=== PATIENT | female | born 1945 | race Caucasian/White ===

== ENCOUNTER 2016-10-29 09:07 | Inpatient (IN) | payer OTHER, MEDICARE ==
[~2016-10-29] VITALS: Ht 147.3 cm; Wt 65.8 kg
[~2016-10-29 09:07] MED LIST: ELIQUIS5 MG PO; NORVASC 2.5 MG2.5 MG PO; TOPROL XL 25MG25 MG PO
--- NOTE | 2016-10-29 09:21 | NUR ---
PT PRESENTS TO ER WITH MULTIPLE COMPLAINTS. PT STATES 4 DAYS AGO SHE STARTED TO NOTICE SHE HAD BLACK STOOLS. PT STATES SHE IS CURRENTLY TAKING ELIQUIS SO SHE WAS WORRIED ABOUT THE COLOR. PT DENIES ABDOMINAL PAIN. PT DENIES CHEST PAIN, PT STATES TODAY SHE FELT LIKE HER HEART WAS RACING. PT ALSO STATES SHE VOMITTED THIS AM. PT ALSO ADMITS SHE FEELS VERY ANXIOUS. PT STATES HER BM THIS AM WAS VERY WATERY.
--- NOTE | 2016-10-29 09:26 | ED CARDIAC/CP/PALPITATIONS ---
History of Present Illness General Chief Complaint: Palpitations Stated Complaint: PALPITATIONS Vital Signs & Intake/Output Vital Signs & Intake/Output Vital Signs Date Time Temp Pulse Resp B/P B/P Pulse O2 O2 Flow FiO2 Mean Ox Delivery Rate 10/29 0917 98.3 105 20 127/86 97 Room Air Allergies Coded Allergies: MDX - Amoxicillin (Amoxicillin) (RASH 10/08/10) MDX - Clarithromycin (From BIAXIN) (RASH 08/10/13) MDX - Fentanyl (Fentanyl) (UNKNOWN 08/12/13) MDX - Midazolam (Midazolam) (UNKNOWN 08/12/13) MDX - Ibuprofen (IBUPROFEN) (NAUSEA 08/12/13) Reconcile Medications Apixaban (Eliquis) 5 MG TABLET 1 TAB PO BID BLOOD THINNER Metoprolol Succ XL (Toprol XL 25MG) 50 MG TAB.ER.24H 1 TAB PO DAILY BLOOD PRESSURE Triage Note: PT PRESENTS TO ER WITH MULTIPLE COMPLAINTS. PT STATES 4 DAYS AGO SHE STARTED TO NOTICE SHE HAD BLACK STOOLS. PT STATES SHE IS CURRENTLY TAKING ELIQUIS SO SHE WAS WORRIED ABOUT THE COLOR. PT DENIES ABDOMINAL PAIN. PT DENIES CHEST PAIN, PT STATES TODAY SHE FELT LIKE HER HEART WAS RACING. PT ALSO STATES SHE VOMITTED THIS AM. PT ALSO ADMITS SHE FEELS VERY ANXIOUS. PT STATES HER BM THIS AM WAS VERY WATERY. 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 FHx: myocardial infarction FATHER, ; Cause: Heart attack. FHx: myocardial infarction BROTHER FATHER Progress Plan of Care: Orders Procedure Date/time Status EKG 10/29 0910 Active Departure Departure Condition: Stable Referrals: FINA PEREZ DO (PCP/Family) Departure Forms: Customer Survey General Discharge Information
--- NOTE | 2016-10-29 09:38 | ED GI/GU/ABDOMINAL COMPLAINT ---
History of Present Illness General Chief Complaint: Palpitations Stated Complaint: PALPITATIONS Source: patient, family, old records Exam Limitations: no limitations Vital Signs & Intake/Output Vital Signs & Intake/Output Vital Signs Date Time Temp Pulse Resp B/P B/P Pulse O2 O2 Flow FiO2 Mean Ox Delivery Rate 10/29 1916 124/70 10/29 1501 98.1 10/29 1500 98.1 74 18 124/80 96 Room Air 10/29 1326 98.3 10/29 1131 98.3 79 20 132/72 95 Room Air 10/29 0917 98.3 105 20 127/86 97 Room Air Allergies Coded Allergies: amoxicillin (RASH 10/29/16) clarithromycin (From BIAXIN) (RASH 10/29/16) fentanyl (UNKNOWN 10/29/16) midazolam (UNKNOWN 10/29/16) ibuprofen (NAUSEA 10/29/16) Reconcile Medications Apixaban (Eliquis) 5 MG TABLET 1 TAB PO BID BLOOD THINNER (Reported) Calcium Carbonate (TUMS) 200 MG CALCIUM (500 MG) TAB.CHEW 2 TAB PO Q4P HEARTBURN (Reported) [CITRACEL] 1 TAB PO DAILY SUPPLEMENT (Reported) Fluticasone Propionate 50 MCG/ACTUATION SPRAY.SUSP 1 SPRAY NASB DAILY CONGESTION (Reported) Lorazepam 0.5 MG TABLET 0.5 TAB PO QHS SLEEP (Reported) Metoprolol Succinate 25 MG TAB 1 TAB PO DAILY HTN (Reported) Triage Note: PT PRESENTS TO ER WITH MULTIPLE COMPLAINTS. PT STATES 4 DAYS AGO SHE STARTED TO NOTICE SHE HAD BLACK STOOLS. PT STATES SHE IS CURRENTLY TAKING ELIQUIS SO SHE WAS WORRIED ABOUT THE COLOR. PT DENIES ABDOMINAL PAIN. PT DENIES CHEST PAIN, PT STATES TODAY SHE FELT LIKE HER HEART WAS RACING. PT ALSO STATES SHE VOMITTED THIS AM. PT ALSO ADMITS SHE FEELS VERY ANXIOUS. PT STATES HER BM THIS AM WAS VERY WATERY. Triage Nurses Notes Reviewed? yes ? N Is pt currently ? No Onset: Abrupt Duration: hour(s): (1) Timing: single episode today Quality/Severity: severe Associated Symptoms: DARK BROWN/BLACK STOOLS HPI: This is a 71-year-old female with history of A. fib on ELOQUIS who presents to the ER from home for chief complaint of feeling near syncopal in the shower. She reports dark stools for the past 4 days and black stools today. She states while she was in the shower she bent over and felt horrible. No chest pain or shortness of breath but felt she was going to pass out. She was sweaty. She was able to get out of the shower and dry herself off and after that felt much better. Patient states that then after getting out of the shower she felt that her heartbeat was fast and irregular. She did not take her morning medications yet. She denies any abdominal pain or rectal pain. She denies any abdominal cramping. She denies any chest pain or shortness of breath. She has no history of bleeding from Eliquis in the past. Patient does feel weak overall. Past History Travel History Traveled to [place] past 21 day No Medical History Any Pertinent Medical History? 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 FHx: myocardial infarction FATHER, ; Cause: Heart attack. FHx: myocardial infarction BROTHER FATHER Hx Contributory? No Review of Systems Review of Systems Constitutional: Denies: chills, fever. EENTM: Reports: no symptoms. Respiratory: Denies: cough, short of breath, sputum production. Cardiovascular: Reports: palpitations, syncope (NEAR). Denies: chest pain, peripheral edema. GI: Reports: nausea, bloody stool, changes in stool. Denies: abdominal pain, vomiting. Genitourinary: Reports: no symptoms. Musculoskeletal: Denies: back pain. Skin: Reports: no symptoms. Neurological/Psychological: Reports: no symptoms. Hematologic/Endocrine: Reports: bleeding. Denies: bruising, polyuria, polydipsia. Immunologic/Allergic: Denies: splenectomy. All Other Systems: Reviewed and Negative Physical Exam Physical Exam General Appearance: well developed/nourished, alert, awake, anxious, mild distress Head: atraumatic, normal appearance Eyes: Bilateral: normal appearance, PERRL, EOMI. Ears, Nose, Throat, Mouth: hearing grossly normal, moist mucous membrane Neck: normal inspection, supple, full range of motion Respiratory: normal breath sounds, chest non-tender, no respiratory distress Cardiovascular: tachycardia Peripheral Pulses: 2+ radial (R), 2+ radial (L) Gastrointestinal: normal bowel sounds, soft, non-tender Rectal: NO STOOL IN VAULT, GUAIAC POSITIVE Back: normal inspection, normal range of motion Extremities: normal range of motion Neurologic/Psych: no motor/sensory deficits, awake, alert, oriented x 3 Core Measures ACS in differential dx? No Severe Sepsis Present: No Septic Shock Present: No Progress Differential Diagnosis: peptic ulcer, PUD/GERD, gi BLEED FROM eLIQUIS, ORTHOSTATIC HYPOTENSION Plan of Care: Orders Procedure Date/time Status Nothing by Mouth 10/30 B Active CBC WITHOUT DIFFERENTIAL 10/30 0600 Active BASIC ELECTROLYTES PLUS BUN&CR 10/30 0600 Active LACTIC ACID 10/29 UNK Complete Clear Liquid Diet 10/29 D Complete Hemoccult 10/29 2026 Active CBC WITHOUT DIFFERENTIAL 10/29 1800 Complete Vital Signs 10/29 1451 Active Teach/Educate 10/29 1451 Active Pain Treatment and Response 10/29 1451 Active Nutritional Intake, Monitor 10/29 1451 Active Isolation 10/29 1451 Active Intake & Output 10/29 1451 Active Patient Care Conference 10/29 1451 Active Activity/Ambulation 10/29 1451 Active Pathway - chart 10/29 1435 Active FingerStick- Glucose 10/29 1322 Active Admit to inpatient 10/29 1306 Active Patient Data 10/29 1304 Active LACTIC ACID 10/29 1237 Complete ED Holding Orders 10/29 1230 Active Vital Signs 10/29 1230 Active Code Status 10/29 1230 Active Intake & Output 10/29 1135 Active MISTAKE 10/29 0937 Active TROPONIN LEVEL 10/29 0937 Complete PARTIAL THROMBOPLASTIN TIME 10/29 0937 Complete PROTHROMBIN TIME 10/29 0937 Complete COMPREHENSIVE METABOLIC PANEL 10/29 0937 Complete CBC WITHOUT DIFFERENTIAL 10/29 0937 Complete TYPE & SCREEN (NOT X-MATCH) 10/29 0937 Complete EKG 10/29 0910 Active VTE Mechanical Prophylaxis 10/29 UNK Active Current Medications Sig/Trevor Start time Last Medication Dose Stop Time Status Admin Pantoprazole Sodium 40 MG BID 10/29 2200 AC 10/29 (Protonix) 221 Lorazepam 0.5 MG AT BEDTIME PRN 10/29 1730 AC 10/29 (Ativan) 11/05 172 2213 Metoprolol Succinate 25 MG DAILY 10/29 1715 AC 10/29 (Toprol XL) 1916 Acetaminophen 650 MG Q6P PRN 10/29 1445 AC (Tylenol) Lidocaine 1 PAT Q24H PRN 10/29 1445 AC (Lidoderm) Morphine Sulfate 2 MG Q4P PRN 10/29 1445 AC (Morphine) Dextrose/Sodium 1,000 ML .[id number] 10/29 1430 AC 10/29 Chloride 1506 (D5-Normal Saline) Fluticasone 2 SPRAY DAILY PRN 10/29 1430 AC 10/29 Propionate 2213 (Flonase) Potassium Chloride 40 MEQ .Q10H 10/29 1430 CAN (KCL 40MEQ in D5W 1000ml) Dextrose/Water 1,000 ML (D5W 1000) Laboratory Tests 10/29/16 1905: Lactic Acid 1.2, CBC w Diff NO MAN DIFF REQ, RBC 2.91 L, MCV 85.8, MCH 28.3, RDW 14.3, MPV 11.8 H, Gran % 59.9, Lymphocytes % 32.6, Monocytes % 6.2, Eosinophils % 0.9, Basophils % 0.4, Absolute Granulocytes 6.8 H, Absolute Lymphocytes 3.7 H, Absolute Monocytes 0.7 H, Absolute Eosinophils 0.1, Absolute Basophils 0, PUBS MCHC 33.0 10/29/16 1021: Lactic Acid 1.8 10/29/16 0956: Anion Gap 7, Estimated GFR > 60, BUN/Creatinine Ratio 33.3 H, Glucose 92, Calcium 9.0, Total Bilirubin 0.4, AST 30, ALT 37, Alkaline Phosphatase 50, Troponin I 0.04, Total Protein 5.4 L, Albumin 3.1 L, Globulin 2.3, Albumin/ Globulin Ratio 1.3, PT 12.0, INR 1.14, APTT 22 L, CBC w Diff MAN DIFF ORDERED, RBC 2.82 L, MCV 86.0, MCH 29.1, RDW 14.4, MPV 11.7 H, Gran % 69.8, Lymphocytes % 22.2, Monocytes % 6.2, Eosinophils % 1.3, Basophils % 0.5, Absolute Granulocytes 7.3 H, Absolute Lymphocytes 2.3, Absolute Monocytes 0.7 H, Absolute Eosinophils 0.1, Absolute Basophils 0.1, Platelet Estimate DECREASED, Polychromasia 1+, Hypochromic-Microcytic 1+, Anisocytosis 1+, PUBS MCHC 33.8 LABS, IV FLUIDS, ORTHOSTATICS, EKG IV PROTONIX ORDERED. 12:[address] GARCIA REPAGED DISCUSSED WITH DR GARCIA. ADMITTED TO UNDER HOSPITALIST SERVICE. DR DURAN INFORMED. NO FURTHER EPISODES OF BLEEDING IN ED. PATIENT AMBULATORY WITHOUT DISTRESS. STABLE FOR GEN MED AT THIS TIME. WILL KEEP NPO. (SHANAE CASTANON,KATHERINE) Initial ED EKG: NSR Rhythm Strip: normal sinus rhythm Departure Departure Time of Disposition: 1228 Disposition: STILL A PATIENT Condition: Stable Clinical Impression Primary Impression: GI bleed Secondary Impressions: Anemia Referrals: FINA PEREZ DO (PCP/Family) Departure Forms: Customer Survey General Discharge Information Admission Note Spoke With: JH CASTANON,REESE Documentation of Exam: Documentation of any treatments & extenuating circumstances including Concerns Regarding Discharge (functional status, medication knowledge or non-compliance, living conditions, etc.) that warrant an admission rather than observation: [IV PROTONIX, MONITOR H/H, D/W DR DURAN TO CONSULT REGARDING DR TIM AVILA FOR ENDOSCOPY]
--- NOTE | 2016-10-29 09:57 | NUR ---
ABLE TO DRAW SOME LABS, NOT ALL, PT TOUGH STICK. SENT SST, LAV, BLUE TO LAB.
[2016-10-29 10:15] LABS: ABSOLUTE BASOPHIL COUNT 0.1 /CUMM (0.0-0.2); ABSOLUTE EOSINOPHIL COUNT 0.1 /CUMM (0.0-0.7); ABSOLUTE GRANULOCYTE CT 7.3 /CUMM (1.4-6.5); ABSOLUTE LYMPH COUNT 2.3 /CUMM (1.2-3.4); ABSOLUTE MONOCYTE COUNT 0.7 /CUMM (0.10-0.60); BASOPHIL % 0.5 % (0.0-2.0); EOSINOPHIL % 1.3 % (0-5); GRANULOCYTE % 69.8 % (42.2-75.2); HEMATOCRIT 24.3 % (37-47); MEAN CORPUSCULAR HGB 29.1 PG (27.0-31.0); MEAN CORPUSCULAR HGB CONC 33.8 G/DL (33.0-37.0); MEAN PLATELET VOLUME 11.7 FL (7.4-10.4); PLATELET COUNT 139 /CUMM (130-400); RBC DISTRIBUTION WIDTH 14.4 % (11.5-14.5); RED BLOOD CELL CT 2.82 /CUMM (4.20-5.40); WHITE BLOOD CELL COUNT 10.5 /CUMM (4.8-10.8)
--- NOTE | 2016-10-29 10:23 | NUR ---
REDRAW OF LACTIC AND TYPE AND SCREEN. REDREW ALL LABS IN CASE OF HEMOLYZATION AND INFORMED LAB WELL.
[2016-10-29 10:30] LABS: PTT 22 SEC (25-37)
--- NOTE | 2016-10-29 11:01 | NUR ---
LAB AT BEDSIDE FOR ABO.
--- NOTE | 2016-10-29 11:26 | NUR ---
NS INFUSING, MEDICATED WITH PROTONIX (SEE MAR)
--- NOTE | 2016-10-29 13:02 | NUR ---
PROTONIX INFUSING GOING ORDERED (SEE MAR)
--- NOTE | 2016-10-29 13:26 | NUR ---
TYLENOL IV ORDERED (SEE MAR)
[2016-10-29] MEDS ORDERED: ELIQUIS5 M1 PO (13:29)
[2016-10-29] MEDS ORDERED: METOPROLOL SUCC25 M1 PO (13:29)
[2016-10-29] MEDS ORDERED: FLUTICASONE PRO16 GM NASB (13:30)
[2016-10-29] MEDS ORDERED: LORAZEPAM0.5 M1 PO (13:30)
[2016-10-29] MEDS ORDERED: CITRACEL PO (13:31)
[2016-10-29] MEDS ORDERED: TUMS200 MG PO (13:31)
--- NOTE | 2016-10-29 13:33 | NUR ---
PT ADMITTED TO ROOM [id number]
--- NOTE | 2016-10-29 13:36 | History & Physical ---
[facility] 10/29/16 1331: General Information and HPI MD Statement: I have seen and personally examined NAREN BROWN and documented this H&P. The patient is a 71 year old F who presented with a patient stated chief complaint of palpitations. Source of Information: patient, family, old records Exam Limitations: no limitations History of Present Illness: Ms Brown is a 71 year old female with a past medical history of hypertension, anxiety, arthritis, chronic cystitis who presented to the ER with the chief complaint weakness and progressive malaise. The patient reports that over the last 5 days she has continued to experience multiple episodes of dark stools. The stools have progressively increased shade and have become progressively darker. Stools have been described as pasty. This morning as the patient was taken a shower she had what she describes as a "horrible feeling". This brief episode was transient and and she did not loose consciousness. She also states that she felt nauseaus. She had one episode of nonbloody emesis. Emesis did contain green bile. Patient also reports over the last week she has had decreased appetite. She has never had similar reports to the above. She does state that she is due to get a colonoscopy. Patient reports continued seasonal allergies. She recently reports that over the weekend and she was gardening and may have had developed some back pain. She took some Tylenol for this. During the time of our clinical encounter the patient also endorsed a mild headache. Headache was in the frontal area. Described as pressure-like. Rated as out 2 out of 10 in severity. Patient's primary care physician is Dr. Shaw. Patient also sees obstetric/clinical study manager Dr. Shawn Echevarria. Allergies/Medications Allergies: Coded Allergies: amoxicillin (RASH 10/29/16) clarithromycin (From BIAXIN) (RASH 10/29/16) fentanyl (UNKNOWN 10/29/16) midazolam (UNKNOWN 10/29/16) ibuprofen (NAUSEA 10/29/16) Home Med list Apixaban (Eliquis) 5 MG TABLET 1 TAB PO BID BLOOD THINNER (Reported) Calcium Carbonate (TUMS) 200 MG CALCIUM (500 MG) TAB.CHEW 2 TAB PO Q4P HEARTBURN (Reported) [CITRACEL] 1 TAB PO DAILY SUPPLEMENT (Reported) Fluticasone Propionate 50 MCG/ACTUATION SPRAY.SUSP 1 SPRAY NASB DAILY CONGESTION (Reported) Lorazepam 0.5 MG TABLET 0.5 TAB PO QHS SLEEP (Reported) Metoprolol Succinate 25 MG TAB 1 TAB PO DAILY HTN (Reported) Compliance With Home Meds: GOOD Past History Travel History Traveled to [place] past 21 day No Medical History Neurological: vertigo, anxiety EENT: allergies Cardiovascular: hypertension Respiratory: NONE Gastrointestinal: NONE Hepatic: NONE Renal: nephrolithiasis, bladder infection Musculoskeletal: chronic knee pain Psychiatric: anxiety Endocrine: NONE Blood Disorders: NONE Cancer(s): 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 FHx: myocardial infarction FATHER, ; Cause: Heart attack. FHx: myocardial infarction BROTHER FATHER Psychosocial History Where do you live? Home Who Do You Live With? child Services at Home: None Primary Language: South Korean Smoking Status: Never Smoked ETOH Use: denies use Illicit Drug Use: denies illicit drug use Living Will? unknown Power of Accounts Receivable Supervisor/HCP? yes Name of POA/HCP: son Functional Ability ADLs Independent: dressing, eating, toileting, bathing. Ambulation: independent, cane IADLs Independent: shopping, housework, finances, food prep, telephone, transportation , medication admin. Review of Systems Review of Systems Constitutional: Reports: see HPI. Denies: fever, malaise, weakness, unexplained weight loss. EENTM: Reports: throat pain. Denies: blurred vision, double vision, visual changes. Cardiovascular: Denies: chest pain, edema, orthopena, palpitations. Respiratory: Denies: cough, hemoptysis, orthopnea, short of breath, sputum production. GI: Denies: abdominal pain, bloating, constipation, diarrhea. Genitourinary: Reports: hematuria. Denies: frequency, hesitation, nocturia. Musculoskeletal: Reports: back pain. Denies: gout, joint pain, joint swelling, muscle pain. Skin: Denies: change in skin color, change in hair/nails, dryness, erythema. Neurological/Psychological: Denies: ataxia, cognitive dysfunction, confusion, depressed, dementia. Hematologic/Endocrine: Denies: bruising, bleeding, polyuria, polydipsia. Exam & Diagnostic Data Last 24 Hrs of Vital Signs/I&O Vital Signs Date Time Temp Pulse Resp B/P B/P Pulse O2 O2 Flow FiO2 Mean Ox Delivery Rate 10/29 1326 98.3 10/29 1131 98.3 79 20 132/72 95 Room Air 10/29 0917 98.3 105 20 127/86 97 Room Air Intake & Output 10/29 1600 10/29 0800 10/29 0000 Intake Total 500 Output Total Balance 500 Intake, IV 500 Patient 68.039 kg Weight Physical Exam General Appearance Alert, Oriented X3, Cooperative, No Acute Distress Sepsis Skin Exam (color): Normal for Ethnicity HEENT Mucous Membr. moist/pink Neck Supple Lymphatic Cervical nl Cardiovascular Normal S1, Normal S2, No Murmurs Lungs Clear to Auscultation Abdomen Normal Bowel Sounds, Soft, No Tenderness Neurological Normal Gait, Normal Speech, Strength at 5/5 X4 Ext Extremities No Clubbing, No Cyanosis, No Edema, Normal Pulses Vascular Normal Pulses Last 24 Hrs of Labs/Mauricio: Laboratory Tests 10/29/16 1021: Lactic Acid 1.8 10/29/16 0956: Anion Gap 7, Estimated GFR > 60, BUN/Creatinine Ratio 33.3 H, Glucose 92, Calcium 9.0, Total Bilirubin 0.4, AST 30, ALT 37, Alkaline Phosphatase 50, Troponin I 0.04, Total Protein 5.4 L, Albumin 3.1 L, Globulin 2.3, Albumin/ Globulin Ratio 1.3, PT 12.0, INR 1.14, APTT 22 L, CBC w Diff MAN DIFF ORDERED, RBC 2.82 L, MCV 86.0, MCH 29.1, RDW 14.4, MPV 11.7 H, Gran % 69.8, Lymphocytes % 22.2, Monocytes % 6.2, Eosinophils % 1.3, Basophils % 0.5, Absolute Granulocytes 7.3 H, Absolute Lymphocytes 2.3, Absolute Monocytes 0.7 H, Absolute Eosinophils 0.1, Absolute Basophils 0.1, Platelet Estimate DECREASED, Polychromasia 1+, Hypochromic-Microcytic 1+, Anisocytosis 1+, PUBS MCHC 33.8 Assessment/Plan Assessment: This is a 71-year-old female with past medical history of hypertension, anxiety, arthritis, chronic cystitis who presented to the emergency department on the afternoon of 10/29/2016 after experiencing a transient presyncopal episode. This is likely due to acute blood loss anemia which has occurred due to blood loss through the GI tract. #Acute blood loss anemia due to upper GI bleed Keep nothing by mouth for now. Maintain 2 large IV bore. Type and screen. Gentle hydration at 75 mL per hour. Repeat CBC this evening at 6 PM and ensure patient is not hemodynamically unstable.Keep H/H above 7 and 21. IV Protonix 40 mg BID. Avoid NSAIDs. Repeat CBC in a.m. GI consultation has been obtained. If the patient deteriorates or becomes hemodynamically unstable inform GI immediately. #Paroxysmal atrial fibrillation. At the time of admission the patient was in normal sinus rhythm. Hold Eliquis for now. #History of headache. Pain relief with Tylenol as needed. #History of hypertension. Hold antihypertensives (metoprolol) for now. Code Full code DVT prophylaxis ALP S As Ranked By This Provider Problem List: 1. GI bleed 2. HTN (hypertension) 3. Afib Core Measures/Miscellaneous Acute Coronary Syndrome ACS Diagnosis: No Cerebrovascular Accident CVA/TIA Diagnosis: No Congestive Heart Failure CHF Diagnosis: No VTE (View Protocol) VTE Risk Factors: Age > 40 [facility] prophylaxis d/t: VTE low risk No VTE Pharm Prophylaxis d/t: Active bleeding VTE Diagnosis: No VTE Type: NONE VTE Confirmed by (Test): NONE Sepsis (View Protocol) Severe Sepsis Present: No Septic Shock Septic Shock Present: No Miscellaneous Documentation Attending Case Discussed With: REESE PEÑALOZA MD Primary Care Physician: FINA SHAW DO Patient sees these Specialists NA Level of Patient Care: General Medicine [facility] 1436: Resident Review Statement Resident Statement: examined this patient, discussed with consultant intern, agreed with consultant intern, discussed with family Other Findings: The patient is a 71-year-old woman with a past history of paroxysmal A. fib on Eliquis, hypertension, osteoarthritis and interstitial cystitis. She presents to the ER from home with complaints of dark stools and tiredness for the past 5 days and a near syncopal attack in the shower this morning. She denied abdominal pain or bleeding AR. However she did have non bloody green colored vomittus X 1 episode this morning shortly after the syncopal attack. She denies palpitations , chest pain or shortness of breath. She also denied prior vaginal bleeding or hematuria. Vitals at presentation 98.3F, P 105bpm, RR 20/min, BP127/86 mg PO2 97% on Room Air Physical exam General Appearance: Alert, Oriented X3, Cooperative, Slightly anxious, No Acute Distress Skin: No Rashes, No Breakdown, No Significant Lesion HEENT: Atraumatic, PERRLA, EOMI, mucous membranes stained with Hanna. Neck: Supple, No JVD Lymphatic: Cervical nl Cardiovascular: Regular Rate, Normal S1, Normal S2, No Murmurs Lungs: Clear to Auscultation, Normal Air Movement Abdomen: Full, Soft, No Tenderness, No Hepatospenomegaly, Normal bowel sounds Neurological: Normal Speech, Strength at 5/5 X4 Ext, Normal Tone, Sensation Intact, Cranial Nerves 3-12 NL Extremities: No Clubbing, No Cyanosis, No Edema, Normal Pulses Vascular: Normal Pulses Labs CBC with WBC 10.5, hemoglobin 8.2 (Was 13.4 6 months prior) , hematocrit 24.3%, platelet count of 139. Sodium was 138, potassium was 4.1, chloride of 108, BUN of 20 and creatinine of 0.6. Troponin was negative at 0.04 and INR was 1.14. EKG: NSR, rate (99bpm), no ST T wave changes. QTC 411 ,s Assessment 1. Symptomatic anemia secondary to upper gastrointestinal bleeding 2. Mild hyperkalemia 3. Paroxsymal atrial fibrillation on eliquis 4. Hypertension Plan -Admit to General medicine floor -Nothing by mouth for possible upper GI endoscopy -Monitor vital signs and blood pressure closely -Patient had orthostatic tachycardia though no blood pressure changes -Hold PO metoprolol for now and restart in am. -Gastroenterology consult -Type and screen -Check CBC again at 6 pm and monitor CBC closely -Change IV Protonix drip to Protonix 40 mg Q 12 hours -IV D5/normal saline at 75 mL an hour -DVT prophylaxis with Alps -Patient is full code REESE PEÑALOZA MD 10/29/16 2106: Attending MD Review Statement Attending Statement Attending MD Statement: examined this patient, discuss w/resident/PA/SERVICES MGR, agreed w/resident/PA/SERVICES MGR, reviewed EMR data (avail) Attending Assessment/Plan: 71F PMH HTN, paroxysmal atrial fibrillation on Eliquis (currently in NSR), presenting with weakness, fatigue, and headache for 1-2 weeks found to have drop in Hgb to 8.2 from baseline 13 6 months ago. No NSAID use, uses Tylenol for pain. Hemodynamically stable. Appears weak but not pale, exam benign. Rectal exam by residents revealed empty rectal vault with no visible stool. Patient reports having dark stools for several days. 1. Acute GI bleed 2. Symptomatic anemia 3. Melena 4. Paroxysmal atrial fibrillation Plan - Admit to general medicine - Hold Eliquis for now - NPO - Protonix 40mg IV BID - GI consult - IV hydration - CBC q6h - Transfuse Hgb<7 - Holding Metoprolol for now - ALPS for DVT PPx - NPO - Protonix 40mg IV BID - GI consult - IV hydration - CBC q6h - Transfuse Hgb<7 - Holding Metoprolol for now - ALPS for DVT PPx
--- NOTE | 2016-10-29 13:51 | NUR ---
REPORT CALLED TO STEPHAN MONGE.
--- NOTE | 2016-10-29 14:42 | Cons- Cardiology ---
[facility] 10/29[facility] 1441: General Information and HPI Consulting Request Date of Consult: 10/29/16 Requested By: REESE PEÑALOZA MD Reason for Consult: Palpitation\Black stool Hx. of A. Fib on Eliquis Source of Information: patient, family, old records Exam Limitations: no limitations History of Present Illness: Mrs. Mejía is a 71 year old woman with a past medical history of hypertension, A.fib on Eliquis, Hiatal hernia, osteoarthritis and interstitial cystitis presented to ED with a c/o of Black stool over the last 4 days and palpitation. Patient was on her usual health until 4 days ago when she started to notice dark colored stool, today she noticed that her stool is black in color with no bright blood or clots. Today at am while she is taking a shower she leaned forward to clean herself, she felt every thing is off balance, she denies dizziness or LOC, after she finished her shower she felt nauseous and she vomits once of clear fluid which becomes bilous later, she denies bright red blood per rectum, she also report feeling tired more easily compared to her baseline, especially when she climb the stairs or when she walk for long distance, she feels SOB on exertion, she denies any SOB at rest. Patient also report heart racing today, she was worried that she back to a. fib. Patient's denies chest pain, headache, vision changes and there is no changes in urinary habits. Allergies/Medications Allergies: Coded Allergies: amoxicillin (RASH 10/29/16) clarithromycin (From BIAXIN) (RASH 10/29/16) fentanyl (UNKNOWN 10/29/16) midazolam (UNKNOWN 10/29/16) ibuprofen (NAUSEA 10/29/16) Home Med List: Apixaban (Eliquis) 5 MG TABLET 1 TAB PO BID BLOOD THINNER (Reported) Calcium Carbonate (TUMS) 200 MG CALCIUM (500 MG) TAB.CHEW 2 TAB PO Q4P HEARTBURN (Reported) [CITRACEL] 1 TAB PO DAILY SUPPLEMENT (Reported) Fluticasone Propionate 50 MCG/ACTUATION SPRAY.SUSP 1 SPRAY NASB DAILY CONGESTION (Reported) Lorazepam 0.5 MG TABLET 0.5 TAB PO QHS SLEEP (Reported) Metoprolol Succinate 25 MG TAB 1 TAB PO DAILY HTN (Reported) Current Medications: Current Medications Sig/Trevor Start time Last Medication Dose Route Stop Time Status Admin Acetaminophen 650 MG Q6P PRN 10/29 1445 AC PO Acetaminophen 1,000 MG ONCE ONE 10/29 1330 DC 10/29 N/A 1 UNIT IV 10/29 1344 1326 Acetaminophen 0 .STK-MED ONE 10/29 1329 DC IV Dextrose/Sodium 1,000 ML .[id number] 10/29 1430 AC 10/29 Chloride IV 1506 Fluticasone 2 SPRAY DAILY PRN 10/29 1430 AC Propionate JOSE MANUEL Lidocaine 1 PAT Q24H PRN 10/29 1445 AC EXT Morphine Sulfate 2 MG Q4P PRN 10/29 1445 AC IV Pantoprazole Sodium 0 .STK-MED ONE 10/29 1259 DC IV Pantoprazole Sodium 40 MG Q5H 10/29 1200 AC 10/29 Sodium Chloride 100 ML IV 1255 Pantoprazole Sodium 40 MG ONCE ONE 10/29 1130 DC 10/29 IV 10/29 1131 1126 Pantoprazole Sodium 0 .STK-MED ONE 10/29 1127 DC IV Potassium Chloride 40 MEQ .Q10H 10/29 1430 CAN Dextrose/Water 1,000 ML IV Sodium Chloride 500 ML BOLUS ONE 10/29 1045 DC 10/29 IV 10/29 1144 1126 Review of Systems Review of Systems Constitutional: Reports: no symptoms. EENTM: Reports: no symptoms. Cardiovascular: Reports: palpitations. Respiratory: Reports: short of breath (On exertion). GI: Reports: melena, nausea, vomiting. Denies: abdominal pain, constipation, diarrhea. Genitourinary: Reports: no symptoms. Musculoskeletal: Reports: no symptoms. Skin: Reports: no symptoms. Neurological/Psychological: Reports: no symptoms. Hematologic/Endocrine: Reports: no symptoms. 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 FHx: myocardial infarction FATHER, ; Cause: Heart attack. FHx: myocardial infarction BROTHER FATHER Psychosocial History Who Do You Live With? child Services at Home: None Primary Language: Spanish Living Will? unknown Power of Frozen Food Department Manager/HCP? yes Name of POA/HCP: son Functional Ability ADLs Independent: dressing, eating, toileting, bathing. Ambulation: independent, cane IADLs Independent: shopping, housework, finances, food prep, telephone, transportation , medication admin. Exam & Diagnostic Data Vital Signs and I&O Vital Signs Date Time Temp Pulse Resp B/P B/P Pulse O2 O2 Flow FiO2 Mean Ox Delivery Rate 10/29 1501 98.1 10/29 1500 98.1 74 18 124/80 96 Room Air 10/29 1326 98.3 10/29 1131 98.3 79 20 132/72 95 Room Air 10/29 0917 98.3 105 20 127/86 97 Room Air Intake & Output 10/29 1600 10/29 0800 10/29 0000 10/28 1600 10/28 0800 10/28 0000 Intake Total 500 Output Total Balance 500 Intake, IV 500 Patient 145 lb Weight Physical Exam General Appearance: well developed/nourished, no apparent distress, alert, awake , comfortable Head: atraumatic, normal appearance Eyes: Bilateral: normal appearance, PERRL, EOMI. Neck: normal inspection, supple Respiratory: normal breath sounds, chest non-tender, no respiratory distress Cardiovascular: regular rate/rhythm, normal peripheral pulses Peripheral Pulses: 3+ dorsalis pedis (R), 3+ dorsalis pedis (L) Gastrointestinal: normal bowel sounds, soft, non-tender Extremities: normal inspection, no edema Neurologic/Psych: no motor/sensory deficits, awake, alert, oriented x 3 Labs/Mauricio Results: Laboratory Tests 10/29 10/29 1021 0956 Chemistry Sodium (137 - 145 mmol/L) 138 Potassium (3.5 - 5.1 mmol/L) 4.1 Chloride (98 - 107 mmol/L) 108 H Carbon Dioxide (22 - 30 mmol/L) 23 Anion Gap (5 - 16) 7 BUN (7 - 17 mg/dL) 20 H Creatinine (0.5 - 1.0 mg/dL) 0.6 Estimated GFR (>60 ml/min) > 60 BUN/Creatinine Ratio (7 - 25 %) 33.3 H Glucose (65 - 99 mg/dL) 92 Lactic Acid (0.7 - 2.1 mmol/L) 1.8 Calcium (8.4 - 10.2 mg/dL) 9.0 Total Bilirubin (0.2 - 1.3 mg/dL) 0.4 AST (14 - 36 U/L) 30 ALT (9 - 52 U/L) 37 Alkaline Phosphatase (<127 U/L) 50 Troponin I (< 0.11 ng/ml) 0.04 Total Protein (6.3 - 8.2 g/dL) 5.4 L Albumin (3.5 - 5.0 g/dL) 3.1 L Globulin (1.9 - 4.2 gm/dL) 2.3 Albumin/Globulin Ratio (1.1 - 2.2 %) 1.3 Coagulation PT (9.4 - 12.5 SEC) 12.0 INR (0.90 - 1.19) 1.14 APTT (25 - 37 SEC) 22 L Hematology CBC w Diff MAN DIFF ORDERED WBC (4.8 - 10.8 /CUMM) 10.5 RBC (4.20 - 5.40 /CUMM) 2.82 L Hgb (12.0 - 16.0 G/DL) 8.2 L Hct (37 - 47 %) 24.3 L MCV (81.0 - 99.0 FL) 86.0 MCH (27.0 - 31.0 PG) 29.1 RDW (11.5 - 14.5 %) 14.4 Plt Count (130 - 400 /CUMM) 139 MPV (7.4 - 10.4 FL) 11.7 H Gran % (42.2 - 75.2 %) 69.8 Lymphocytes % (20.5 - 51.1 %) 22.2 Monocytes % (1.7 - 9.3 %) 6.2 Eosinophils % (0 - 5 %) 1.3 Basophils % (0.0 - 2.0 %) 0.5 Absolute Granulocytes (1.4 - 6.5 /CUMM) 7.3 H Absolute Lymphocytes (1.2 - 3.4 /CUMM) 2.3 Absolute Monocytes (0.10 - 0.60 /CUMM) 0.7 H Absolute Eosinophils (0.0 - 0.7 /CUMM) 0.1 Absolute Basophils (0.0 - 0.2 /CUMM) 0.1 Platelet Estimate (ADEQUATE) DECREASED Polychromasia 1+ Hypochromic-Microcytic 1+ Anisocytosis 1+ PUBS MCHC (33.0 - 37.0 G/DL) 33.8 Assessment/Plan Assessment/Plan Mrs. Mejía is a 71 year old woman with a past medical history of hypertension, A.fib on Eliquis, Hiatal hernia, osteoarthritis and interstitial cystitis presented to ED with a c/o of Black stool over the last 4 days and palpitation. Admitted for GI bleed, acute blood loss anemia. Assessment: #Acute blood loss anemia most likely 2/2 GI bleed #Palpitation which could be related to anemia or Hx. of A.fib #Hx. of A.fib on Eliquis #SOB on exertion which most likely 2/2 anemia #Hx. of HTN #Hx. of Hiatal hernia Plan: * Hold Eliquis for today * Continue Metoprolol for rate control, her BP is stable. Hold if low BP * Gentle hydration * Montior H&H, frequent CBC * Monitor for hemodynamic instability * Management of GI bleed per GI Full code Problem List: 1. GI bleed 2. HTN (hypertension) 3. Afib Consult Acknowledgment - Thank you for your consult request. KATT DURAN MD 10/29/16 1764: Attending MD Review Statement Attending Statement Attending MD Statement: examined this patient, discuss w/resident/PA/ZIPPER LINING FOLDER, agreed w/resident/PA/ZIPPER LINING FOLDER, discussed with family, reviewed EMR data (avail), discussed w/ nursing, reviewed images, amended to note Attending Assessment/Plan: The patient is a 71-year-old female with history of hypertension, proximal atrial fibrillation, and hiatal hernia who presents with complaint of black stool 4 days and recent palpitations. In the emergency department she is noted to be anemic. She is admitted for likely GI bleed exacerbated by anticoagulation. No recent chest pain. No shortness of breath. No diaphoresis. No syncope. Review of systems: No fever. No chills. No rash. No tremor. Gen: The patient is in no acute distress HEENT: Normal nose, ears, and oropharynx. Pupils equal bilaterally. Conjunctiva normal. Neck: Supple with no JVD, no masses, and no thyromegaly Lungs: Clear to auscultation with normal respiratory effort Heart: RRR, S1, S2, no murmurs. No peripheral edema, 2+ pulses in the lower extremities bilaterally Abdomen: Soft, nontender, no masses. No hepatomegaly. No splenomegaly Extremities: No clubbing or cyanosis. Normal muscle strength in the upper and lower extremities Skin: Normal skin turgor with no skin ulcers or lesions noted. Neuro: Cranial nerves intact. Sensation intact Psych: Alert and oriented 3 with appropriate affect EKG tracing is independently reviewed, reveals normal sinus rhythm at 99, borderline T-wave abnormality Echocardiogram 12/10/14: Normal size left ventricle. Normal left ventricular ejection fraction visually estimated at >60 Trace mitral regurgitation. Trace pulmonic regurgitation. CTA Chest 12/10/14: There is no filling defect to suggest pulmonary embolism. Some mild hilar adenopathy right greater than left but no significant infiltrate or effusion. Some deviation of the upper thoracic trachea to the right. This may well be by tortuous anomalous vasculature. Assessment: 1. Paroxysmal atrial fibrillation, currently in sinus rhythm 2. Hypertension 3. Anticoagulated on Eliquis. Anti-coagulation is on hold for GI bleed 4. Acute GI bleed with anemia Plan: * Eliquis is on hold for GI bleeding * Workup as per GI * Continue other cardiac medications * Restart Eliquis once cleared by GI Assessment/Plan Consult Acknowledgment - Thank you for your consult request.
[2016-10-29 15:00] VITALS: BP 124/80
--- NOTE | 2016-10-29 15:30 | NUR ---
PATIENT CAME UP FROM THE ED. A/OX3. VSS AT THIS TIME. SON DEDE AT THE BEDSIDE. PATIENT OFFERS NO COMPLAINTS. DENIES PAIN. PATIENT'S QUESTIONS ANSWERED. PATIENT ORIENTED TO CALL [facility] STAFF.
--- NOTE | 2016-10-29 17:05 | Cons- Gastroenterology ---
General Information and HPI Consulting Request Date of Consult: 10/29/16 (MD NALINI/GASTROENTEROLOGY) Requested By: REESE PEÑALOZA MD Reason for Consult: GI bleed Anemia Source of Information: patient History of Present Illness: 71-year-old female with a history of frequent heartburn, several times per week, for the last few years. This is alleviated with antacids. She has never taken any prescription medications. He does not use aspirin or NSAIDs. She is on Eliquis for atrial fibrillation. She does not usually have nausea, vomiting, regurgitation, dysphagia, abdominal pain, or abnormal bowel habits (constipation , diarrhea). She's never had a GI bleed i.e. blood per rectum, or black stool. She has a history of colonic adenoma and diverticulosis, with most recent colonoscopy in 2008. The patient now presents with several days of progressively darkening stool ( without increased frequency beyond usual 1 per day). Her heartburn has been worse than usual. This morning she had a presyncopal episode in the shower after bending over, followed by a black bowel movement (without any redness seeping into the toilet water), and then nausea and vomiting (green emesis without blood). Patient has no history of liver disease. No previous known anemia. No bleeding elsewhere such as gums, nose, vaginal, urine. No bruising. Family history positive for colon cancer in an uncle. 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 No tobacco use. Remote marijuana use. Social alcohol only. Allergies/Medications Allergies: Coded Allergies: amoxicillin (RASH 10/29/16) clarithromycin (From BIAXIN) (RASH 10/29/16) fentanyl (UNKNOWN 10/29/16) midazolam (UNKNOWN 10/29/16) ibuprofen (NAUSEA 10/29/16) Home Med List: Apixaban (Eliquis) 5 MG TABLET 1 TAB PO BID BLOOD THINNER (Reported) Calcium Carbonate (TUMS) 200 MG CALCIUM (500 MG) TAB.CHEW 2 TAB PO Q4P HEARTBURN (Reported) [CITRACEL] 1 TAB PO DAILY SUPPLEMENT (Reported) Fluticasone Propionate 50 MCG/ACTUATION SPRAY.SUSP 1 SPRAY NASB DAILY CONGESTION (Reported) Lorazepam 0.5 MG TABLET 0.5 TAB PO QHS SLEEP (Reported) Metoprolol Succinate 25 MG TAB 1 TAB PO DAILY HTN (Reported) Current Medications: Current Medications Sig/Trevor Start time Last Medication Dose Route Stop Time Status Admin Acetaminophen 650 MG Q6P PRN 10/29 1445 AC PO Acetaminophen 1,000 MG ONCE ONE 10/29 1330 DC 10/29 N/A 1 UNIT IV 10/29 1344 1326 Acetaminophen 0 .STK-MED ONE 10/29 1329 DC IV Dextrose/Sodium 1,000 ML .[id number] 10/29 1430 AC 10/29 Chloride IV 1506 Fluticasone 2 SPRAY DAILY PRN 10/29 1430 AC Propionate JOSE MANUEL Lidocaine 1 PAT Q24H PRN 10/29 1445 AC EXT Morphine Sulfate 2 MG Q4P PRN 10/29 1445 AC IV Pantoprazole Sodium 0 .STK-MED ONE 10/29 1259 DC IV Pantoprazole Sodium 40 MG Q5H 10/29 1200 AC 10/29 Sodium Chloride 100 ML IV 1255 Pantoprazole Sodium 40 MG ONCE ONE 10/29 1130 DC 10/29 IV 10/29 1131 1126 Pantoprazole Sodium 0 .STK-MED ONE 10/29 1127 DC IV Potassium Chloride 40 MEQ .Q10H 10/29 1430 CAN Dextrose/Water 1,000 ML IV Sodium Chloride 500 ML BOLUS ONE 10/29 1045 DC 10/29 IV 10/29 1144 1126 Past History Travel History Traveled to [place] past 21 day No Medical History Blood Transfusion Hx: No Neurological: vertigo, anxiety EENT: allergies Cardiovascular: AFIB, hypertension Respiratory: NONE Gastrointestinal: NONE Hepatic: NONE Renal: nephrolithiasis, bladder infection Musculoskeletal: chronic knee pain Psychiatric: anxiety Endocrine: NONE Blood Disorders: NONE Cancer(s): NONE 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 FHx: myocardial infarction FATHER, ; Cause: Heart attack. FHx: myocardial infarction BROTHER FATHER Psychosocial History Where Do You Live? Home Who Do You Live With? child Services at Home: None Primary Language: French Smoking Status: Never Smoked ETOH Use: denies use Illicit Drug Use: denies illicit drug use Living Will? unknown Power of Risk Intern/HCP? yes Name of POA/HCP: son Functional Ability ADLs Independent: dressing, eating, toileting, bathing. Ambulation: independent, cane IADLs Independent: shopping, housework, finances, food prep, telephone, transportation , medication admin. Review of Systems Review of Systems Constitutional: Reports: weakness. Denies: fever, unexplained weight loss. EENTM: Denies: icterus, epistaxis. Cardiovascular: Reports: palpitations. Denies: chest pain, peripheral edema, syncope. Respiratory: Reports: short of breath. Denies: cough, hemoptysis. GI: Reports: see HPI. Genitourinary: Denies: dysuria, hematuria. Musculoskeletal: Denies: muscle stiffness, neck pain. Skin: Denies: jaundice, lesions. Neurological/Psychological: Denies: cognitive dysfunction, confusion. Hematologic/Endocrine: Reports: bleeding. Denies: bruising, polyuria. Exam & Diagnostic Data Vital Signs and I&O Vital Signs Date Time Temp Pulse Resp B/P B/P Pulse O2 O2 Flow FiO2 Mean Ox Delivery Rate 10/29 1501 98.1 10/29 1500 98.1 74 18 124/80 96 Room Air 10/29 1326 98.3 10/29 1131 98.3 79 20 132/72 95 Room Air 10/29 0917 98.3 105 20 127/86 97 Room Air Intake & Output 10/29 1600 10/29 0400 10/28 1600 10/28 0400 10/27 1600 10/27 0400 Intake Total 500 Output Total Balance 500 Intake, IV 500 Patient 145 lb Weight Physical Exam: Well-developed, well-nourished, in no apparent distress. Alert and oriented with normal cognition. Skin normal without rash, lesion, stigmata of chronic liver disease or jaundice. No adenopathy. Head and neck normal without scleral icterus, oropharyngeal lesion; neck supple without thyromegaly or mass. Heart regular rhythm with a 2/6 systolic murmur. Lungs clear bilaterally. Abdomen is soft and nondistended with normal bowel sounds, and no tenderness, mass or organomegaly. Extremities without clubbing, cyanosis or edema. Pulses intact. Results Pertinent Lab Results: Laboratory Tests 10/29 10/29 1021 0956 Chemistry Sodium (137 - 145 mmol/L) 138 Potassium (3.5 - 5.1 mmol/L) 4.1 Chloride (98 - 107 mmol/L) 108 H Carbon Dioxide (22 - 30 mmol/L) 23 Anion Gap (5 - 16) 7 BUN (7 - 17 mg/dL) 20 H Creatinine (0.5 - 1.0 mg/dL) 0.6 Estimated GFR (>60 ml/min) > 60 BUN/Creatinine Ratio (7 - 25 %) 33.3 H Glucose (65 - 99 mg/dL) 92 Lactic Acid (0.7 - 2.1 mmol/L) 1.8 Calcium (8.4 - 10.2 mg/dL) 9.0 Total Bilirubin (0.2 - 1.3 mg/dL) 0.4 AST (14 - 36 U/L) 30 ALT (9 - 52 U/L) 37 Alkaline Phosphatase (<127 U/L) 50 Troponin I (< 0.11 ng/ml) 0.04 Total Protein (6.3 - 8.2 g/dL) 5.4 L Albumin (3.5 - 5.0 g/dL) 3.1 L Globulin (1.9 - 4.2 gm/dL) 2.3 Albumin/Globulin Ratio (1.1 - 2.2 %) 1.3 Coagulation PT (9.4 - 12.5 SEC) 12.0 INR (0.90 - 1.19) 1.14 APTT (25 - 37 SEC) 22 L Hematology CBC w Diff MAN DIFF ORDERED WBC (4.8 - 10.8 /CUMM) 10.5 RBC (4.20 - 5.40 /CUMM) 2.82 L Hgb (12.0 - 16.0 G/DL) 8.2 L Hct (37 - 47 %) 24.3 L MCV (81.0 - 99.0 FL) 86.0 MCH (27.0 - 31.0 PG) 29.1 RDW (11.5 - 14.5 %) 14.4 Plt Count (130 - 400 /CUMM) 139 MPV (7.4 - 10.4 FL) 11.7 H Gran % (42.2 - 75.2 %) 69.8 Lymphocytes % (20.5 - 51.1 %) 22.2 Monocytes % (1.7 - 9.3 %) 6.2 Eosinophils % (0 - 5 %) 1.3 Basophils % (0.0 - 2.0 %) 0.5 Absolute Granulocytes (1.4 - 6.5 /CUMM) 7.3 H Absolute Lymphocytes (1.2 - 3.4 /CUMM) 2.3 Absolute Monocytes (0.10 - 0.60 /CUMM) 0.7 H Absolute Eosinophils (0.0 - 0.7 /CUMM) 0.1 Absolute Basophils (0.0 - 0.2 /CUMM) 0.1 Platelet Estimate (ADEQUATE) DECREASED Polychromasia 1+ Hypochromic-Microcytic 1+ Anisocytosis 1+ PUBS MCHC (33.0 - 37.0 G/DL) 33.8 Assessment/Plan Assessment/Recommendations: Melena, and anemia in an anticoagulated patient. History of frequent heartburn. Vital signs are stable. The patient has history of an adenomatous polyp, and is overdue for colonoscopy. Recommendations * Clear liquid diet. 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 * Transfuse as necessary to maintain hemoglobin greater than 7. * IV fluids * IV PPI twice a day * Continue metoprolol * Hold anticoagulation * EGD tomorrow * Please call GI with hematemesis, red/maroon blood per rectum, frequent melena, hypotension, tachycardia, change in mental status or any other concern for ongoing bleeding * Possible inpatient colonoscopy, although will decide after EGD Copies To: FNIA PEREZ DO; ROGER CASTANON,KATT Consult Acknowledgment - Thank you for your consult request.
[2016-10-29 19:55] LABS: ABSOLUTE BASOPHIL COUNT 0 /CUMM (0.0-0.2); ABSOLUTE EOSINOPHIL COUNT 0.1 /CUMM (0.0-0.7); ABSOLUTE GRANULOCYTE CT 6.8 /CUMM (1.4-6.5); ABSOLUTE LYMPH COUNT 3.7 /CUMM (1.2-3.4); ABSOLUTE MONOCYTE COUNT 0.7 /CUMM (0.10-0.60); BASOPHIL % 0.4 % (0.0-2.0); EOSINOPHIL % 0.9 % (0-5); GRANULOCYTE % 59.9 % (42.2-75.2); MEAN CORPUSCULAR HGB 28.3 PG (27.0-31.0); MEAN CORPUSCULAR VOLUME 85.8 FL (81.0-99.0); MEAN PLATELET VOLUME 11.8 FL (7.4-10.4); PLATELET COUNT 153 /CUMM (130-400); RBC DISTRIBUTION WIDTH 14.3 % (11.5-14.5); RED BLOOD CELL CT 2.91 /CUMM (4.20-5.40); WHITE BLOOD CELL COUNT 11.4 /CUMM (4.8-10.8)
--- NOTE | 2016-10-29 21:12 | Admission Certification ---
Admission Certification Certification Statement - As attending physician, I certify that at the time of - admission, based on clinical presentation, severity of - symptoms, need for further diagnostic testing and - therapeutic interventions, and risk of adverse outcomes - without in-hospital treatment, in my clinical assessment, - this patient requires an acute hospital stay for a minimum - of two nights or longer. I have also considered psychsocial - factors such as support system, advanced age, financial - issues, cognitive issues, and failed out-patient treatments, - past re-admission history, safety of patient, and lack of - compliance as applicable. Specific rationale supporting this admission is: Acute GI bleed with symptomatic anemia
[2016-10-29 22:50] VITALS: BP 130/88
--- NOTE | 2016-10-30 06:24 | PN- Housestaff ---
See Addendum Subjective Follow-up For: Anemia secondary to upper GI bleed. Subjective: Ms Mejía was seen and examined this morning. Resting comfortably in the chair beside her bed. She states that she feels much better today. She states she had one small bowel movement last evening, stool was described as black. This morning, she endorsed a mild headache, which has resolved after taking some tylenol. She denies any fever, chills, nausea or vomiting. Currently nothing by mouth awaiting EGD scheduled for later today. Review of Systems Constitutional: Reports: see HPI. Objective Last 24 Hrs of Vital Signs/I&O Vital Signs Date Time Temp Pulse Resp B/P B/P Pulse O2 O2 Flow FiO2 Mean Ox Delivery Rate 10/30 0827 84 112/70 10/30 0630 98.3 73 18 108/70 96 Room Air 10/29 2250 98.2 69 18 130/88 96 10/29 1916 124/70 10/29 1501 98.1 10/29 1500 98.1 74 18 124/80 96 Room Air 10/29 1326 98.3 10/29 1131 98.3 79 20 132/72 95 Room Air 10/29 0917 98.3 105 20 127/86 97 Room Air Intake & Output 10/30 1600 10/30 0800 10/30 0000 Intake Total 600 Output Total 200 Balance 400 Intake, IV 600 Output, Urine 200 Physical Exam General Appearance: Alert, Oriented X3, Cooperative Cardiovascular: Normal S1, Normal S2, No Murmurs Lungs: Clear to Auscultation Abdomen: Normal Bowel Sounds, Soft, No Tenderness Neurological: Normal Gait, Normal Speech, Strength at 5/5 X4 Ext Extremities: No Edema Current Medications: Current Medications Sig/Trevor Start time Last Medication Dose Route Stop Time Status Admin Acetaminophen 650 MG Q6P PRN 10/29 1445 AC 10/30 PO 0828 Acetaminophen 1,000 MG ONCE ONE 10/29 1330 DC 10/29 N/A 1 UNIT IV 10/29 1344 1326 Acetaminophen 0 .STK-MED ONE 10/29 1329 DC IV Dextrose/Sodium 1,000 ML .[id number] 10/29 1430 AC 10/30 Chloride IV 0445 Fluticasone 2 SPRAY DAILY PRN 10/29 1430 AC 10/29 Propionate JOSE MANUEL 2213 Lidocaine 1 PAT Q24H PRN 10/29 1445 AC EXT Lorazepam 0.5 MG AT BEDTIME PRN 10/29 1730 AC 10/29 PO 11/05 1729 2213 Melatonin 3 MG ONCE ONE 10/30 0230 DC 10/30 PO 10/30 0231 0221 Melatonin 5 MG .STK-MED ONE 10/29 2337 DC PO 10/29 2338 Metoprolol Succinate 25 MG DAILY 10/29 1715 AC 10/29 PO 1916 Morphine Sulfate 2 MG Q4P PRN 10/29 1445 AC IV Pantoprazole Sodium 40 MG BID 10/29 2200 AC 10/30 IV 0822 Pantoprazole Sodium 0 .STK-MED ONE 10/29 1259 DC IV Pantoprazole Sodium 40 MG Q5H 10/29 1200 DC 10/29 Sodium Chloride 100 ML IV 1255 Pantoprazole Sodium 40 MG ONCE ONE 10/29 1130 DC 10/29 IV 10/29 1131 1126 Pantoprazole Sodium 0 .STK-MED ONE 10/29 1127 DC IV Potassium Chloride 40 MEQ .Q10H 10/29 1430 CAN Dextrose/Water 1,000 ML IV Sodium Chloride 500 ML BOLUS ONE 10/29 1045 DC 10/29 IV 10/29 1144 1126 Last 24 Hrs of Lab/Mauricio Results Last 24 Hrs of Labs/Mics: Laboratory Tests 10/30/16 0640: Anion Gap 7, Estimated GFR > 60, BUN/Creatinine Ratio 21.7, CBC w Diff NO MAN DIFF REQ, RBC 2.38 L, MCV 86.3, MCH 29.4, RDW 14.4, MPV 11.6 H, Gran % 56.2, Lymphocytes % 34.9, Monocytes % 6.7, Eosinophils % 1.7, Basophils % 0.5, Absolute Granulocytes 4.1, Absolute Lymphocytes 2.5, Absolute Monocytes 0.5, Absolute Eosinophils 0.1, Absolute Basophils 0, PUBS MCHC 34.0 10/29/16 1905: Lactic Acid 1.2, CBC w Diff NO MAN DIFF REQ, RBC 2.91 L, MCV 85.8, MCH 28.3, RDW 14.3, MPV 11.8 H, Gran % 59.9, Lymphocytes % 32.6, Monocytes % 6.2, Eosinophils % 0.9, Basophils % 0.4, Absolute Granulocytes 6.8 H, Absolute Lymphocytes 3.7 H, Absolute Monocytes 0.7 H, Absolute Eosinophils 0.1, Absolute Basophils 0, PUBS MCHC 33.0 10/29/16 1021: Lactic Acid 1.8 Assessment/Plan Assessment: This is a 71-year-old female with past medical history of hypertension, anxiety, arthritis, chronic cystitis who presented to the emergency department on the afternoon of 10/29/2016 after experiencing a transient presyncopal episode. This is likely due to acute blood loss anemia which has occurred due to blood loss through the GI tract. #Acute blood loss anemia due to upper GI bleed Keep nothing by mouth for now. Maintain 2 large IV bore. Type and screen. Gentle hydration at 75 mL per hour. H&H this morning was 7.0 and 2.5. Repeat H&H. If falls further will transfuse the patient 1 unit PRBC. IV Protonix 40 mg BID. Avoid NSAIDs. Repeat CBC in a.m. GI consultation has been obtained,Pending EGD this afternoon. #Paroxysmal atrial fibrillation. At the time of admission the patient was in normal sinus rhythm. Hold Eliquis for now. #History of headache. Pain relief with Tylenol as needed. #History of hypertension. Last BP 112/70. Can resume when back from procedure. Hold antihypertensives (metoprolol) for now. Code Full code DVT prophylaxis ALP S Problem List: 1. Anemia 2. GI bleed 3. HTN (hypertension) 4. Afib Pain Ratin Pain Location: No Pain Pain Goal: Remain pain free Pain Plan: Tylenol Prn Tomorrow's Labs & Rationales: cbc: Monitor H/H
[2016-10-30 06:30] VITALS: BP 108/70
[2016-10-30 08:21] LABS: ABSOLUTE BASOPHIL COUNT 0 /CUMM (0.0-0.2); ABSOLUTE EOSINOPHIL COUNT 0.1 /CUMM (0.0-0.7); ABSOLUTE GRANULOCYTE CT 4.1 /CUMM (1.4-6.5); ABSOLUTE LYMPH COUNT 2.5 /CUMM (1.2-3.4); ABSOLUTE MONOCYTE COUNT 0.5 /CUMM (0.10-0.60); BASOPHIL % 0.5 % (0.0-2.0); EOSINOPHIL % 1.7 % (0-5); GRANULOCYTE % 56.2 % (42.2-75.2); HEMATOCRIT 20.5 % (37-47); MEAN CORPUSCULAR HGB 29.4 PG (27.0-31.0); MEAN CORPUSCULAR VOLUME 86.3 FL (81.0-99.0); MEAN PLATELET VOLUME 11.6 FL (7.4-10.4); PLATELET COUNT 118 /CUMM (130-400); RBC DISTRIBUTION WIDTH 14.4 % (11.5-14.5); RED BLOOD CELL CT 2.38 /CUMM (4.20-5.40); WHITE BLOOD CELL COUNT 7.2 /CUMM (4.8-10.8)
--- NOTE | 2016-10-30 10:31 | PN- Cardiology ---
[facility] 10/30/16 1030: Subjective Subjective: Patient seen and examined, she is sitting in the chair comfortable with no acute distress. She had one small bowel movement yesterday which was black, she denies chest pain, SOB, N/V, and there is no change in urinary habits. No bowel movement today. She is schedualed for endoscopy today at afternoon. Review of Systems Constitutional: Reports: no symptoms. EENTM: Reports: no symptoms. Cardiovascular: Reports: no symptoms. Respiratory: Reports: no symptoms. Gastrointestinal: Reports: no symptoms. Genitourinary: Reports: no symptoms. Musculoskeletal: Reports: no symptoms. Skin: Reports: no symptoms. Neurological/Psychological: Reports: no symptoms. Hematologic/Endocrine: Reports: no symptoms. All Other Systems: Reviewed and Negative Objective Vital Signs and I&Os Vital Signs Date Time Temp Pulse Resp B/P B/P Pulse O2 O2 Flow FiO2 Mean Ox Delivery Rate 10/30 0827 84 112/70 10/30 0630 98.3 73 18 108/70 96 Room Air 10/29 2250 98.2 69 18 130/88 96 10/29 1916 124/70 10/29 1501 98.1 10/29 1500 98.1 74 18 124/80 96 Room Air 10/29 1326 98.3 10/29 1131 98.3 79 20 132/72 95 Room Air Intake & Output 10/30 1600 10/30 0800 10/30 0000 10/29 1600 10/29 0800 10/29 0000 Intake Total 600 500 Output Total 200 Balance 400 500 Intake, IV 600 500 Output, Urine 200 Patient 145 lb Weight Current Medications: Current Medications Sig/Trevor Start time Last Medication Dose Route Stop Time Status Admin Acetaminophen 650 MG Q6P PRN 10/29 1445 AC 10/30 PO 0828 Acetaminophen 1,000 MG ONCE ONE 10/29 1330 DC 10/29 N/A 1 UNIT IV 10/29 1344 1326 Acetaminophen 0 .STK-MED ONE 10/29 1329 DC IV Dextrose/Sodium 1,000 ML .[id number] 10/29 1430 AC 10/30 Chloride IV 0445 Fluticasone 2 SPRAY DAILY PRN 10/29 1430 AC 10/29 Propionate JOSE MANUEL 2213 Lidocaine 1 PAT Q24H PRN 10/29 1445 AC EXT Lorazepam 0.5 MG AT BEDTIME PRN 10/29 1730 AC 10/29 PO 11/05 1729 2213 Melatonin 3 MG ONCE ONE 10/30 0230 DC 10/30 PO 10/30 0231 0221 Melatonin 5 MG .STK-MED ONE 10/29 2337 DC PO 10/29 2338 Metoprolol Succinate 25 MG DAILY 10/29 1715 AC 10/29 PO 1916 Morphine Sulfate 2 MG Q4P PRN 10/29 1445 AC IV Pantoprazole Sodium 40 MG BID 10/29 2200 AC 10/30 IV 0822 Pantoprazole Sodium 0 .STK-MED ONE 10/29 1259 DC IV Pantoprazole Sodium 40 MG Q5H 10/29 1200 DC 10/29 Sodium Chloride 100 ML IV 1255 Pantoprazole Sodium 40 MG ONCE ONE 10/29 1130 DC 10/29 IV 10/29 1131 1126 Pantoprazole Sodium 0 .STK-MED ONE 10/29 1127 DC IV Potassium Chloride 40 MEQ .Q10H 10/29 1430 CAN Dextrose/Water 1,000 ML IV Sodium Chloride 500 ML BOLUS ONE 10/29 1045 DC 10/29 IV 10/29 1144 1126 Results Last 48 Hrs of Labs/Mics: Laboratory Tests 10/30/16 0640: Anion Gap 7, Estimated GFR > 60, BUN/Creatinine Ratio 21.7, CBC w Diff NO MAN DIFF REQ, RBC 2.38 L, MCV 86.3, MCH 29.4, RDW 14.4, MPV 11.6 H, Gran % 56.2, Lymphocytes % 34.9, Monocytes % 6.7, Eosinophils % 1.7, Basophils % 0.5, Absolute Granulocytes 4.1, Absolute Lymphocytes 2.5, Absolute Monocytes 0.5, Absolute Eosinophils 0.1, Absolute Basophils 0, PUBS MCHC 34.0 10/29/16 1905: Lactic Acid 1.2, CBC w Diff NO MAN DIFF REQ, RBC 2.91 L, MCV 85.8, MCH 28.3, RDW 14.3, MPV 11.8 H, Gran % 59.9, Lymphocytes % 32.6, Monocytes % 6.2, Eosinophils % 0.9, Basophils % 0.4, Absolute Granulocytes 6.8 H, Absolute Lymphocytes 3.7 H, Absolute Monocytes 0.7 H, Absolute Eosinophils 0.1, Absolute Basophils 0, PUBS MCHC 33.0 10/29/16 1021: Lactic Acid 1.8 10/29/16 0956: Anion Gap 7, Estimated GFR > 60, BUN/Creatinine Ratio 33.3 H, Glucose 92, Calcium 9.0, Total Bilirubin 0.4, AST 30, ALT 37, Alkaline Phosphatase 50, Troponin I 0.04, Total Protein 5.4 L, Albumin 3.1 L, Globulin 2.3, Albumin/ Globulin Ratio 1.3, PT 12.0, INR 1.14, APTT 22 L, CBC w Diff MAN DIFF ORDERED, RBC 2.82 L, MCV 86.0, MCH 29.1, RDW 14.4, MPV 11.7 H, Gran % 69.8, Lymphocytes % 22.2, Monocytes % 6.2, Eosinophils % 1.3, Basophils % 0.5, Absolute Granulocytes 7.3 H, Absolute Lymphocytes 2.3, Absolute Monocytes 0.7 H, Absolute Eosinophils 0.1, Absolute Basophils 0.1, Platelet Estimate DECREASED, Polychromasia 1+, Hypochromic-Microcytic 1+, Anisocytosis 1+, PUBS MCHC 33.8 Assessment/Plan Assessment/Plan Assessment: #Acute blood loss anemia most likely 2/2 GI bleed #Palpitation which could be related to anemia or Hx. of A.fib #Hx. of A.fib on Eliquis #SOB on exertion which most likely 2/2 anemia #Hx. of HTN #Hx. of Hiatal hernia Plan: * Today her H&H is dropping (7/20.5), transfuse 1 unit Packed cell * Schedualed for endoscopy today at afternoon, will F/U the result. * Hold Eliquis for today * Continue Metoprolol for rate control, her BP is stable. Hold if low BP * Gentle hydration * Montior H&H, frequent CBC * Monitor for hemodynamic instability * Management of GI bleed per GI Full code Continue telemetry? Not applicable Problem List: 1. Anemia 2. GI bleed 3. HTN (hypertension) 4. KATT Dias MD 10/30/16 1452: Attending MD Review Statement Attending Statement Attending MD Statement: examined this patient, discuss w/resident/PA/[employer], agreed w/resident/PA/[employer], discussed with family, reviewed EMR data (avail), discussed w/ nursing, reviewed images, amended to note Attending Assessment/Plan: Feeling well. No chest pain. No SOB. No palp. No further bleeding Gen: The patient is in no acute distress HEENT: Normal nose, ears, and oropharynx. Pupils equal bilaterally. Conjunctiva normal. Neck: Supple with no JVD, no masses, and no thyromegaly Lungs: Clear to auscultation with normal respiratory effort Heart: RRR, S1, S2, no murmurs. No peripheral edema, 2+ pulses in the lower extremities bilaterally Abdomen: Soft, nontender, no masses. No hepatomegaly. No splenomegaly Extremities: No clubbing or cyanosis. Normal muscle strength in the upper and lower extremities Skin: Normal skin turgor with no skin ulcers or lesions noted. Assessment: 1. Paroxysmal atrial fibrillation, currently in sinus rhythm 2. Hypertension 3. Anticoagulated on Eliquis. Anti-coagulation is on hold for GI bleed 4. Acute GI bleed with anemia 5. s/p upper endoscopy showing duodenal ulcer Plan: * Eliquis is on hold for GI bleeding * Workup as per GI * Continue other cardiac medications * Restart Eliquis once cleared by GI
[2016-10-30 13:36] LABS: ABSOLUTE BASOPHIL COUNT 0 /CUMM (0.0-0.2); ABSOLUTE EOSINOPHIL COUNT 0.1 /CUMM (0.0-0.7); ABSOLUTE GRANULOCYTE CT 4.6 /CUMM (1.4-6.5); ABSOLUTE LYMPH COUNT 2.5 /CUMM (1.2-3.4); ABSOLUTE MONOCYTE COUNT 0.5 /CUMM (0.10-0.60); BASOPHIL % 0.6 % (0.0-2.0); EOSINOPHIL % 1.6 % (0-5); GRANULOCYTE % 59.4 % (42.2-75.2); HEMATOCRIT 22.2 % (37-47); MEAN CORPUSCULAR HGB 28.9 PG (27.0-31.0); MEAN CORPUSCULAR HGB CONC 33.8 G/DL (33.0-37.0); MEAN CORPUSCULAR VOLUME 85.4 FL (81.0-99.0); PLATELET COUNT 137 /CUMM (130-400); RBC DISTRIBUTION WIDTH 14.1 % (11.5-14.5); WHITE BLOOD CELL COUNT 7.8 /CUMM (4.8-10.8)
--- NOTE | 2016-10-30 14:46 | Proc Note Endoscopy ---
Endoscopy Procedure Procedure Date: 10/30/16 Procedure Type: EGD w/biopsy Immigration Associate: Rupesh Mendenhall M.D. ASA Classification: III (e) Indications: Melena Anemia Instrument: diagnostic gastroscope Meds Received: JOON Patient's Tolerance: good Complications: none Extent Reached: third portion of duodenum Procedure: The patient signed informed consent, and was medicated. Hurricaine pharyngeal spray was administered. Pulse oximetry, blood pressure and cardiac monitoring were performed continuously throughout the procedure. The Olympus high- definition gastroscope was inserted into the mouth and advanced to the duodenum. Retroflexion was performed within the stomach to examine the cardia. Careful examination was performed. Findings: The esophagus had normal caliber and contour. The mucosa was intact throughout except for a short linear break above the GE junction. There were no varices. The GE junction was at 30 cm, at which site was a patent ring. There was a hiatal hernia. There were no Gui's erosions. The stomach had normal distention and active antral peristalsis. There was no blood within the gastric cavity. The cardia was normal. Mucosa and folds were normal throughout. Biopsies were obtained from the body, incisura and antrum. The pyloric channel was normal. Within the duodenal bulb on the anterior wall was a narrow curvilinear 1.2 cm ulcer with a clean base, and adjacent edema. Careful search failed to reveal other ulceration. Mucosa and folds of the second and third portions of the duodenum were normal. Impression: * Duodenal ulcer * Hiatal hernia/Schatzki ring * Grade A esophagitis Recommendations: * Await pathology * Daily oral PPI (e.g. omeprazole 40 mg) * No aspirin/NSAIDs * Continue to hold anticoagulation * Begin clear liquid diet * Colonoscopy tomorrow. Give GoLYTELY 1/2 gallon over 2 hours late this afternoon, and repeat at 7 AM tomorrow. Nothing by mouth after 10 AM. * Continue to monitor CBC, tonight and in the morning. Transfuse if hemoglobin drops below 7. CC: FINA PEREZ DO; ROGER CASTANON,KATT
[2016-10-30 15:31] VITALS: BP 120/80
[2016-10-30 22:26] VITALS: BP 120/80
--- NOTE | 2016-10-31 06:17 | PN- Housestaff ---
See Addendum Subjective Follow-up For: [place] Subjective: Patient was seen and examined this morning. Resting comfortably in bed. She is currently tolerating GoLYTELY well and is scheduled to go for colonoscopy later today. Patient reports no issues overnight. She was able to get some rest despite being on an aggressive bowel regimen. She denies any fever, chills, nausea, vomiting. She is currently nothing by mouth. Review of Systems Constitutional: Reports: see HPI. Objective Last 24 Hrs of Vital Signs/I&O Vital Signs Date Time Temp Pulse Resp B/P B/P Pulse O2 O2 Flow FiO2 Mean Ox Delivery Rate 10/30 2226 98.1 79 20 120/80 98 Room Air 10/30 1826 70 118/78 10/30 1531 97.8 63 20 120/80 99 10/30 0827 84 112/70 Intake & Output 10/31 0800 10/31 0000 10/30 1600 Intake Total 960 2000 800 Output Total Balance 960 2000 800 Intake, IV 600 600 Intake, Oral 360 2000 200 Number 3 Bowel Movements Physical Exam General Appearance: Alert, Oriented X3, Cooperative Cardiovascular: Regular Rate, Normal S1, Normal S2 Lungs: Clear to Auscultation Abdomen: Normal Bowel Sounds, Soft, No Tenderness, Hyperactive BS Neurological: Normal Gait, Normal Speech Extremities: No Clubbing, No Cyanosis, No Edema Vascular: Normal Pulses Current Medications: Current Medications Sig/Trevor Start time Last Medication Dose Route Stop Time Status Admin Acetaminophen 650 MG .STK-MED ONE 10/30 0817 DC PO 10/30 0818 Acetaminophen 650 MG Q6P PRN 10/29 1445 AC 10/30 PO 0828 Dextrose/Sodium 1,000 ML .[id number] 10/29 1430 DC 10/31 Chloride IV 0552 Fluticasone 2 SPRAY DAILY PRN 10/29 1430 AC 10/30 Propionate JOSE MANUEL 2202 Lidocaine 1 CHRISTOPHER .STK-MED ONE 10/30 1434 DC TOP 10/30 1435 Lidocaine 1 PAT Q24H PRN 10/29 1445 AC EXT Lorazepam 0.5 MG AT BEDTIME PRN 10/29 1730 AC 10/30 PO 11/05 1729 2202 Metoprolol Succinate 25 MG DAILY 10/29 1715 AC 10/30 PO 1826 Morphine Sulfate 2 MG Q4P PRN 10/29 1445 AC IV Omeprazole 40 MG DAILY AC 10/30 1550 10/31 PO 0551 Pantoprazole Sodium 40 MG BID 10/29 2200 DC 10/30 IV 0822 Patient Medication 1 ED .STK-MED ONE 10/30 1419 [place] Teaching ED 10/30 1420 Polyethylene Glycol 1 GAL SEE ADMIN CRITERIA 10/30 1600 AC 10/30 PO 1953 Last 24 Hrs of Lab/Mauricio Results Last 24 Hrs of Labs/Mics: Laboratory Tests 10/31/16 0610: CBC w Diff Pending, WBC Pending, RBC Pending, Hgb Pending, Hct Pending, MCV Pending, MCH Pending, RDW Pending, Plt Count Pending, MPV Pending, PUBS MCHC Pending 10/30/16 1143: CBC w Diff NO MAN DIFF REQ, RBC 2.60 L, MCV 85.4, MCH 28.9, RDW 14.1, MPV 12.0 H, Gran % 59.4, Lymphocytes % 32.5, Monocytes % 5.9, Eosinophils % 1.6, Basophils % 0.6, Absolute Granulocytes 4.6, Absolute Lymphocytes 2.5, Absolute Monocytes 0.5, Absolute Eosinophils 0.1, Absolute Basophils 0, PUBS MCHC 33.8 Assessment/Plan Assessment: This is a 71-year-old female with past medical history of hypertension, anxiety, arthritis, chronic cystitis who presented to the emergency department on the afternoon of 10/29/2016 after experiencing a transient presyncopal episode. This is likely due to acute blood loss anemia which has occurred due to blood loss through the GI tract. #Acute blood loss anemia due to upper GI bleed Keep nothing by mouth for now. Maintain 2 large IV bore. H&H this morning 8.4 and 25.5 Repeat H&H tomorrow in am. If falls further will transfuse the patient 1 unit PRBC. IV Protonix 40 mg BID. Avoid NSAIDs. Repeat CBC in a.m. GI consultation has been obtained,Pending scope this afternoon. Can advance diet as tolerated once she is back. #Paroxysmal atrial fibrillation. At the time of admission the patient was in normal sinus rhythm. Continues to be in NSR Hold Eliquis for now. #History of headache. Pain relief with Tylenol as needed. #History of hypertension. Last BP 118/62 Continue antihypertensives (metoprolol) for now.Patient would like to wait till she is back from the procedure this afternoon as she recived her metoprolol late evening yesterday (6.26 pm). Code Full code DVT prophylaxis ALP S Problem List: 1. Afib 2. HTN (hypertension) 3. GI bleed 4. Anemia Pain Ratin Pain Location: No Pain Pain Goal: Remain pain free Pain Plan: Tylenol PRN Tomorrow's Labs & Rationales: CBC: Monitor H/H in the setting of anemia
[2016-10-31 07:56] VITALS: BP 130/70
[2016-10-31 08:27] LABS: ABSOLUTE BASOPHIL COUNT 0.1 /CUMM (0.0-0.2); ABSOLUTE EOSINOPHIL COUNT 0.2 /CUMM (0.0-0.7); ABSOLUTE LYMPH COUNT 3.3 /CUMM (1.2-3.4); ABSOLUTE MONOCYTE COUNT 0.6 /CUMM (0.10-0.60); BASOPHIL % 0.6 % (0.0-2.0); EOSINOPHIL % 1.9 % (0-5); GRANULOCYTE % 62.5 % (42.2-75.2); HEMATOCRIT 25.5 % (37-47); MEAN CORPUSCULAR HGB 28.8 PG (27.0-31.0); MEAN CORPUSCULAR HGB CONC 32.8 G/DL (33.0-37.0); MEAN CORPUSCULAR VOLUME 87.6 FL (81.0-99.0); MEAN PLATELET VOLUME 12.2 FL (7.4-10.4); RBC DISTRIBUTION WIDTH 14.4 % (11.5-14.5); RED BLOOD CELL CT 2.92 /CUMM (4.20-5.40); WHITE BLOOD CELL COUNT 11.2 /CUMM (4.8-10.8)
--- NOTE | 2016-10-31 09:20 | Patient Discharge Instructions ---
Discharge Instructions General Discharge Information You were seen/treated for: Acute blood loss anemia You had these procedures: Endoscopy Colonoscopy Watch for these problems: If you feel weak, experience chest pain, shortness breath, or increased weakness please come back to the emergency department. If you experience fever, chills, nausea, vomiting in addition to the above please come back to the emergency department for additional care Special Instructions: On 11/04/2016, please have a CBC drawn, cc the results of these to your PCP. We have provided you with a script. Please follow-up with your primary care physician within 7 days of discharge. Please inform your primary care physician of this admission to General medical service. We have also provided you a referral to follow-up with the area field person please. Please follow-up with in 1 week. We have also provided you a referral to follow-up with a new primary care physician. Please follow-up on Friday at 3.[address] [place] [address]. [place]. Please bring ID, Insurance and the medications that you are on. Follow up with your pump room operator, Dr Balbuena in one week, you will need a Holter monitor as an outpatient to evaluate for recurrence of Atrial Fibrillation. Diet Continue normal diet: Yes Activity Full Activity/No Limits: No Activity Self Limited: Yes (As Tolerated ) Acute Coronary Syndrome Inclusion Criteria At DC or during hospital stay patient has or had the following: ACS DIAGNOSIS No Discharge Core Measures Meds if any: Prescribed or Continued at Discharge Meds if any: NOT Prescribed or Continued at Discharge Congestive Heart Failure Inclusion Criteria At DC or during hospital stay patient has or had the following: CHF DIAGNOSIS No Discharge Core Measures Meds if any: Prescribed or Continued at Discharge Meds if any: NOT Prescribed or Continued at Discharge Cerebrovascular accident Inclusion Criteria At DC or during hospital stay patient has or had the following: CVA/TIA Diagnosis No Discharge Core Measures Meds if any: Prescribed or Continued at Discharge Meds if any: NOT Prescribed or Continued at Discharge Venous thromboembolism Inclusion Criteria VTE Diagnosis No VTE Type NONE VTE Confirmed by (Test) NONE Discharge Core Measures - Per Current guidelines, there needs to be overlap - treatment for the first 5 days of Warfarin therapy. - If discharged on Warfarin prior to 5 days of - overlap therapy, the patient will need to be - assessed for post discharge needs including - *Post discharge parental anticoagulation - *Warfarin and/or parental anticoagulation education - *Follow up date to check INR post discharge At least 5 days overlap therapy as Inpatient No Meds if any: Prescribed or Continued at Discharge Note: Overlap Therapy is Warfarin and Anticoagulant Meds if any: NOT Prescribed or Continued at Discharge
--- NOTE | 2016-10-31 09:29 | PN- Cardiology ---
See Addendum Subjective Subjective: The patient is feeling well. She is preparing for colonoscopy today. No chest pain. No shortness of breath. No diaphoresis. Objective Vital Signs and I&Os Vital Signs Date Time Temp Pulse Resp B/P B/P Pulse O2 O2 Flow FiO2 Mean Ox Delivery Rate 10/31 0756 98.6 103 20 130/70 96 Room Air 10/30 2226 98.1 79 20 120/80 98 Room Air 10/30 1826 70 118/78 10/30 1531 97.8 63 20 120/80 99 Intake & Output 10/31 1600 10/31 0800 10/31 0000 10/30 1600 10/30 0800 10/30 0000 Intake Total 960 2000 800 600 Output Total 200 Balance 960 2000 800 400 Intake, IV 600 600 600 Intake, Oral 360 2000 200 Number 3 Bowel Movements Output, Urine 200 Physical Exam: Gen: The patient is in no acute distress HEENT: Normal nose, ears, and oropharynx. Pupils equal bilaterally. Conjunctiva normal. Neck: Supple with no JVD, no masses, and no thyromegaly Lungs: Clear to auscultation with normal respiratory effort Heart: RRR, S1, S2, no murmurs. No peripheral edema, 2+ pulses in the lower extremities bilaterally Abdomen: Soft, nontender, no masses. No hepatomegaly. No splenomegaly Extremities: No clubbing or cyanosis. Normal muscle strength in the upper and lower extremities Skin: Normal skin turgor with no skin ulcers or lesions noted. Current Medications: Current Medications Sig/Trevor Start time Last Medication Dose Route Stop Time Status Admin Acetaminophen 650 MG Q6P PRN 10/29 1445 10/30 PO 0828 Dextrose/Sodium 1,000 ML .[id number] 10/29 1430 ND 10/31 Chloride IV 0552 Fluticasone 2 SPRAY DAILY PRN 10/29 1430 10/30 Propionate JOSE MANUEL 2202 Lidocaine 1 CHRISTOPHER .STK-MED ONE 10/30 1434 ND TOP 10/30 1435 Lidocaine 1 PAT Q24H PRN 10/29 1445 AC EXT Lorazepam 0.5 MG AT BEDTIME PRN 10/29 1730 AC 10/30 PO 11/05 1729 2202 Metoprolol Succinate 25 MG DAILY 10/29 1715 AC 10/30 PO 1826 Morphine Sulfate 2 MG Q4P PRN 10/29 1445 IV Omeprazole 40 MG DAILY AC 10/30 1550 AC 10/31 PO 0551 Pantoprazole Sodium 40 MG BID 10/29 2200 ND 10/30 IV 0822 Patient Medication 1 ED .STK-MED ONE 10/30 1419 ND Teaching ED 10/30 1420 Polyethylene Glycol 1 GAL SEE ADMIN CRITERIA 10/30 1600 AC 10/30 PO 1953 Results Last 48 Hrs of Labs/Mics: Laboratory Tests 10/31/16 0610: CBC w Diff Pending, WBC Pending, RBC Pending, Hgb Pending, Hct Pending, MCV Pending, MCH Pending, RDW Pending, Plt Count Pending, MPV Pending, Gran % Pending, Lymphocytes % Pending, Monocytes % Pending, Eosinophils % Pending, Basophils % Pending, Absolute Granulocytes Pending, Absolute Lymphocytes Pending , Absolute Monocytes Pending, Absolute Eosinophils Pending, Absolute Basophils Pending, PUBS MCHC Pending 10/30/16 1143: CBC w Diff NO MAN DIFF REQ, RBC 2.60 L, MCV 85.4, MCH 28.9, RDW 14.1, MPV 12.0 H, Gran % 59.4, Lymphocytes % 32.5, Monocytes % 5.9, Eosinophils % 1.6, Basophils % 0.6, Absolute Granulocytes 4.6, Absolute Lymphocytes 2.5, Absolute Monocytes 0.5, Absolute Eosinophils 0.1, Absolute Basophils 0, PUBS MCHC 33.8 10/30/16 0640: Anion Gap 7, Estimated GFR > 60, BUN/Creatinine Ratio 21.7, CBC w Diff NO MAN DIFF REQ, RBC 2.38 L, MCV 86.3, MCH 29.4, RDW 14.4, MPV 11.6 H, Gran % 56.2, Lymphocytes % 34.9, Monocytes % 6.7, Eosinophils % 1.7, Basophils % 0.5, Absolute Granulocytes 4.1, Absolute Lymphocytes 2.5, Absolute Monocytes 0.5, Absolute Eosinophils 0.1, Absolute Basophils 0, PUBS MCHC 34.0 10/29/16 1905: Lactic Acid 1.2, CBC w Diff NO MAN DIFF REQ, RBC 2.91 L, MCV 85.8, MCH 28.3, RDW 14.3, MPV 11.8 H, Gran % 59.9, Lymphocytes % 32.6, Monocytes % 6.2, Eosinophils % 0.9, Basophils % 0.4, Absolute Granulocytes 6.8 H, Absolute Lymphocytes 3.7 H, Absolute Monocytes 0.7 H, Absolute Eosinophils 0.1, Absolute Basophils 0, PUBS MCHC 33.0 10/29/16 1021: Lactic Acid 1.8 10/29/16 0956: Anion Gap 7, Estimated GFR > 60, BUN/Creatinine Ratio 33.3 H, Glucose 92, Calcium 9.0, Total Bilirubin 0.4, AST 30, ALT 37, Alkaline Phosphatase 50, Troponin I 0.04, Total Protein 5.4 L, Albumin 3.1 L, Globulin 2.3, Albumin/ Globulin Ratio 1.3, PT 12.0, INR 1.14, APTT 22 L, CBC w Diff MAN DIFF ORDERED, RBC 2.82 L, MCV 86.0, MCH 29.1, RDW 14.4, MPV 11.7 H, Gran % 69.8, Lymphocytes % 22.2, Monocytes % 6.2, Eosinophils % 1.3, Basophils % 0.5, Absolute Granulocytes 7.3 H, Absolute Lymphocytes 2.3, Absolute Monocytes 0.7 H, Absolute Eosinophils 0.1, Absolute Basophils 0.1, Platelet Estimate DECREASED, Polychromasia 1+, Hypochromic-Microcytic 1+, Anisocytosis 1+, PUBS MCHC 33.8 Assessment/Plan Assessment/Plan Assessment: 1. Paroxysmal atrial fibrillation, currently in sinus rhythm 2. Hypertension 3. Anticoagulated on Eliquis. Anti-coagulation is on hold for GI bleed 4. Acute GI bleed with anemia 5. s/p upper endoscopy showing duodenal ulcer Plan: * Eliquis is on hold for GI bleeding * Colonoscopy today as per GI * Continue other cardiac medications * Restart Eliquis once cleared by GI Continue telemetry? No
[2016-10-31 09:48] LABS: PLATELET COUNT 177 /CUMM (130-400)
--- NOTE | 2016-10-31 13:11 | NUR ---
1245- PT LEFT FLOOR VIA STRETCHER FOR GI SUITE FOR COLONOSCOPY
--- NOTE | 2016-10-31 14:10 | Proc Note Colonoscopy ---
Colonoscopy Procedure Procedure Date: 10/31/16 Procedure Type: colonoscopy w/polypectomy [employer]: Rupesh Mendenhall M.D. ASA Classification: III Indications: GI bleed Anemia History of adenomatous polyps in 2005. Instrument (Colonoscope): single channel Meds Received: MAC Patient's Tolerance: good Complications: none Extent Reached: terminal ileum Prep: excellent Procedure: The patient signed informed consent, was placed in the Vital position, and medicated. Examination of the rectum demonstrated external hemorrhoids. The Olympus high-definition variable stiffness colonoscope was inserted through the anus and advanced to the terminal ileum. Retroflexion was performed in order to examine the rectum. Careful examination was performed. There was adequate withdrawal time. Findings: The rectum was normal. There was diverticulosis, from sigmoid to transverse colon. There were 2 subcentimeter sessile polyps (18 cm, ascending colon); each of these was resected with electrocautery snare and 25 W coagulation current. In the cecum were several angiodysplasias. These were washed aggressively and did not bleed. The terminal ileum was normal. Impression: * Polyps * Diverticulosis * Cecal angiodysplasias, nonbleeding Recommendations: * Await pathology (colonic polyps, gastric biopsies) * Advance to regular diet * May begin Eliquis tomorrow if deemed necessary by cardiology (Cem score, etc. ) * PPI daily * If CBC stable, may discharge tomorrow (from a GI perspective) with careful outpatient follow-up including monitoring for bleeding and checking CBCs Followup Colonscopy Screen In: pending biopsy result(s) CC: FINA PEREZ DO; ROGER CASTANON,KATT
[2016-10-31] MEDS ORDERED: OMEPRAZOLE40 M1 PO (15:04)
--- NOTE | 2016-10-31 15:45 | Discharge Summary ---
Visit Information Visit Dates Admission Date: 10/29/16 Discharge Date: 11/02/2016 Hospital Course Course Attending Physician: REESE PEÑALOZA MD Primary Care Physician: FINA PEREZ DO Hospital Course: Ms Mejía is a 71 year old female with a past medical history of hypertension, anxiety, arthritis, chronic cystitis who presented to the ER with the chief complaint weakness and progressive malaise. The patient reports that 5 days prior to admission she has continued to experience multiple episodes of dark stools. The patient also endorsed a near syncopal episode on the day of admission. She was admitted to the General medical service and below is a summary of the care she received under us. #Acute blood loss anemia due to upper GI bleed At the time of admission the patient was kept nothing by mouth. Her H&H was routinely checked. 2 large IV bore needles were maintained. She was started on IV Protonix 40 mg twice a day. We obtained a GI consultation recommended that the patient may be eligible for an endoscopy and a colonoscopy. Results of the studies have been attached on this report. She tolerated both procedures well. Her diet was subsequently advanced. On day 4 of admission the patient did experience additional symptoms of anemia. She was transfused 1 unit of PRBC of which she responded well to. At the time of discharge the patient was given a script for Pylera for total of 14 days. She was also given a prescription to have a CBC drawn on 11/04/2016. Results of these to be forwarded to the primary care physician. She was given a referral for an outpatient follow-up with the advertising copywriter. #Paroxysmal atrial fibrillation. The patient was taking Eliquis as a daily medication owing to paroxysmal atrial fibrillation. At the time of admission her Eliquis was held. We obtained a cardiology consult. As recommended that the patient be discontinued of Eliquis and started on aspirin. Patient was instructed that should she develop any signs of gastrointestinal bleeding or develop any stool changes we may reconsider the aspirin. Marine Engine Machinist recommended that the patient may be evaluated with a Holter monitor as an outpatient to evaluate for recurrent atrial fibrillation. #History of hypertension. At the time of admission the patient was continued on her Metoprolol. Prior to going in for the endoscopy and colonoscopy this medication was held owing to patient preference. The risks of doing this was explained to the patient. She felt that because she had received her metoprolol in the evening on day one of admission she would like to continue timings with this. Prior to discharge timing of her medication was corrected DVT prophylaxis Patient was maintained on ALPS Code Full code Allergies: Coded Allergies: amoxicillin (RASH 10/29/16) clarithromycin (From BIAXIN) (RASH 10/29/16) fentanyl (UNKNOWN 10/29/16) midazolam (UNKNOWN 10/29/16) ibuprofen (NAUSEA 10/29/16) Significant Procedures: Procedure Type: EGD w/biopsy Scientific Artist: Alma Mendenhall M.D. ASA Classification: III (e) Indications: Melena Anemia Instrument: diagnostic gastroscope Meds Received: MAC Patient's Tolerance: good Complications: none Extent Reached: third portion of duodenum Procedure: The patient signed informed consent, and was medicated. Hurricaine pharyngeal spray was administered. Pulse oximetry, blood pressure and cardiac monitoring were performed continuously throughout the procedure. The Olympus high- definition gastroscope was inserted into the mouth and advanced to the duodenum. Retroflexion was performed within the stomach to examine the cardia. Careful examination was performed. Findings: The esophagus had normal caliber and contour. The mucosa was intact throughout except for a short linear break above the GE junction. There were no varices. The GE junction was at 30 cm, at which site was a patent ring. There was a hiatal hernia. There were no Gui's erosions. The stomach had normal distention and active antral peristalsis. There was no blood within the gastric cavity. The cardia was normal. Mucosa and folds were normal throughout. Biopsies were obtained from the body, incisura and antrum. The pyloric channel was normal. Within the duodenal bulb on the anterior wall was a narrow curvilinear 1.2 cm ulcer with a clean base, and adjacent edema. Careful search failed to reveal other ulceration. Mucosa and folds of the second and third portions of the duodenum were normal. Impression: * Duodenal ulcer * Hiatal hernia/Schatzki ring * Grade A esophagitis Recommendations: * Await pathology * Daily oral PPI (e.g. omeprazole 40 mg) * No aspirin/NSAIDs * Continue to hold anticoagulation * Begin clear liquid diet * Colonoscopy tomorrow. Give GoLYTELY 1/2 gallon over 2 hours late this afternoon, and repeat at 7 AM tomorrow. Nothing by mouth after 10 AM. * Continue to monitor CBC, tonight and in the morning. Transfuse if hemoglobin drops below 7. Procedure Type: colonoscopy w/polypectomy Scientific Artist: Alma Mendenhall M.D. ASA Classification: III Indications: GI bleed Anemia History of adenomatous polyps in 2005. Instrument (Colonoscope): single channel Meds Received: MAC Patient's Tolerance: good Complications: none Extent Reached: terminal ileum Prep: excellent Procedure: The patient signed informed consent, was placed in the Vital position, and medicated. Examination of the rectum demonstrated external hemorrhoids. The Olympus high-definition variable stiffness colonoscope was inserted through the anus and advanced to the terminal ileum. Retroflexion was performed in order to examine the rectum. Careful examination was performed. There was adequate withdrawal time. Findings: The rectum was normal. There was diverticulosis, from sigmoid to transverse colon. There were 2 subcentimeter sessile polyps (18 cm, ascending colon); each of these was resected with electrocautery snare and 25 W coagulation current. In the cecum were several angiodysplasias. These were washed aggressively and did not bleed. The terminal ileum was normal. Impression: * Polyps * Diverticulosis * Cecal angiodysplasias, nonbleeding Recommendations: * Await pathology (colonic polyps, gastric biopsies) * Advance to regular diet * May begin Eliquis tomorrow if deemed necessary by cardiology (Cem score, etc. ) * PPI daily * If CBC stable, may discharge tomorrow (from a GI perspective) with careful outpatient follow-up including monitoring for bleeding and checking CBCs Followup Colonscopy Screen In: pending biopsy result(s) Pertinent Lab Results: Hgb/Hct: 7.0/20.5 Disposition Summary Disposition Principal Diagnosis: Symptomatic anemia Additional Diagnosis: History of hypertension. History of paroxysmal atrial fibrillation. Discharge Disposition: home or self care Discharge Instructions General Discharge Information Code Status: Full Code Patient's Diet: Heart Healthy Patient's Activity: As Tolerated Follow-Up Instructions/Appts: On 11/04/2016, please have a CBC drawn, cc the results of these to your PCP. We have provided you with a script. Please follow-up with your primary care physician within 7 days of discharge. Please inform your primary care physician of this admission to General medical service. We have also provided you a referral to follow-up with the advertising copywriter please. Please follow-up with in 1 week. We have also provided you a referral to follow-up with a new primary care physician. Please follow-up on Friday at 3.[address] [place] [address]. [place]. Please bring ID, Insurance and the medications that you are on. Follow up with your case repairer, Dr Balbuena in one week, you will need a Holter monitor as an outpatient to evaluate for recurrence of Atrial Fibrillation. Medications at Discharge Discharge Medications: Stop taking the following medications: Apixaban (Eliquis) 5 MG TABLET ORAL TWICE DAILY Qty = 180 Continue taking these medications: Metoprolol Succinate (Metoprolol Succinate) 25 MG TAB 1 Tablet ORAL DAILY Qty = 90 Comments: Last Taken:11-02-16 Time:0900 Fluticasone Propionate (Fluticasone Propionate) 50 MCG/ACTUATION SPRAY.SUSP 1 [place] Both sides of nose DAILY Qty = 48 Lorazepam (Lorazepam) 0.5 MG TABLET 0.5 Tablet ORAL TAKE AT BEDTIME Qty = 30 Comments: Last Taken:11-01-16 Time:2100 [CITRACEL] 1 Tablet ORAL DAILY Calcium Carbonate (TUMS) 200 MG CALCIUM (500 MG) TAB.CHEW 2 Tablet ORAL EVERY 4 HOURS NEEDED Omeprazole (Omeprazole) 40 MG CAPSULE.DR 1 Capsule ORAL TWICE DAILY Qty = 30 Instructions: Take this medication for twice per day for 14 days. Then once per day after. Comments: Last Taken:11-02-16 Time:0900 This prescription has been renewed Start taking the following new medications: Aspirin (Aspirin*) 81 MG TAB.CHEW 81 Milligram ORAL DAILY Qty = 30 No Refills Instructions: ..Do not take if you notice your stool is black, or you experience bleeding. Comments: Last Taken:11-02-16 Time:0900 Bismuth/Metronid/Tetracycline (Pylera Capsule) 140 MG-125 MG-125 MG CAPSULE 3 Capsule ORAL TWICE DAILY Qty = 84 No Refills Comments: NOT GIVEN Copies To: TIM CASTANON,ALMA Pappas; ROGER CASTANON,KATT
--- NOTE | 2016-10-31 16:01 | NUR ---
1430- PT RETURNED TO FLOOR FROM COLONOSCOPY. REPORT REC'D FROM LENNIE/ GI RN. PT RECEIVED PROPOFOL FOR SEDATION. 2 SMALL POLYPS SENT FOR BIOPSY. PT WITH DIVERTICULOSIS AND CECAL ANGIODYPLASUS WITH NO EVIDENCE OF BLEEDING. GI MD FEELS GI BLEED CAUSED BY ULCERS FOUND ON UPPER ENDOSCOPY YESTERDAY. VSS.
[2016-10-31 18:37] VITALS: BP 90/60
[2016-10-31 18:44] VITALS: BP 106/64
--- NOTE | 2016-10-31 19:01 | NUR ---
1900- PT STATING SHE "FEELS LIKE SHE IS IN A FIB AGAIN". FEELS LIKE HER HEART IS RACING. HR 95, B/P 106/64. RECEIVED TOPROL XL 25 MG YESTERDAY AT 1830. DID NOT TAKE TOPROL XL 25 MG THIS MORNING DUE TO LOW B/P AND PT HAD TAKEN MED LAST NIGHT. DR. PAGE PAGED REGARDING ABOVE. DR. PAGE TO ORDER EKG AND METOPROLOL 12.5 MG.
[2016-10-31 19:07] VITALS: BP 106/64
--- NOTE | 2016-10-31 19:12 | Event Note ---
Event Note Event Note: Notified by the nursing staff about the patient's complaint of palpitations. Vitals checked and significant for HR of 96 and SBP of 100. Patient did not get her Toprol XL dose this morning due to the colonoscopy. Given her low SBP, patient will receive metoprolol 12.5mg for now. Also stat EKG ordered and to be followed.
[2016-10-31 20:03] VITALS: BP 120/64
[2016-10-31 22:19] VITALS: BP 100/60
--- NOTE | 2016-10-31 23:02 | NUR ---
EKG PERFORMED. MD VALENCIA AT BEDSIDE TO EVALUATE PATIENT. PATIENT ANXIOUS AND STILL COMPLAINING OF PALPATIONS. STATED TO GIVE PT HER BEDTIME ATIVAN SYMPTOMS MAY BE RELATED TO ANXIETY. MEDICATION ADMINISTERED PER EMAR. WILL CONTINUE TO CLOSELY MONITOR.
--- NOTE | 2016-11-01 06:21 | PN- Housestaff ---
See Addendum Subjective Follow-up For: [place] Subjective: Ms Walter was seen and examined this morning. Resting comfortably in bed. Denies any issues overnight. Early in the evening she did admit episode where she felt extremely anxious. She was tachycardic. An EKG was done which revealed no abnormalities. Her metoprolol which was being held owing to patient preference was then administered. She states that she feels much better this morning. She denies any fever, chills, nausea, vomiting. Patient denies any chest movements bowel movements overnight. Tolerating by mouth intake well. Eager to go home. Review of Systems Constitutional: Reports: see HPI. Objective Last 24 Hrs of Vital Signs/I&O Vital Signs Date Time Temp Pulse Resp B/P B/P Pulse O2 O2 Flow FiO2 Mean Ox Delivery Rate 11/01 0629 98.1 100 20 110/70 100 Room Air 10/31 2219 98.1 78 20 100/60 96 Room Air 10/31 2002 82 120/64 10/31 1935 82 120/64 10/31 1907 95 106/64 10/31 1844 85 106/64 10/31 1837 98.1 89 20 90/60 95 Room Air 10/31 1012 70 118/62 Intake & Output 11/01 1600 11/01 0800 11/01 0000 Intake Total 440 600 Output Total Balance 440 600 Intake, Oral 440 600 Physical Exam General Appearance: Alert, Oriented X3, Cooperative Cardiovascular: Regular Rate, Normal S1, Normal S2 Lungs: Clear to Auscultation, Normal Air Movement Abdomen: Normal Bowel Sounds, Soft, No Tenderness Neurological: Normal Speech, Strength at 5/5 X4 Ext Extremities: No Edema Current Medications: Current Medications Sig/Trevor Start time Last Medication Dose Route Stop Time Status Admin Acetaminophen 650 MG Q6P PRN 10/29 1445 AC 10/30 PO 0828 Apixaban 5 MG BID 11/01 1000 UNVr PO Chlorhexidine 1 GM .STK-MED ONE 10/31 1406 DC Gluconate TOP 10/31 1407 Fluticasone 2 SPRAY DAILY PRN 10/29 1430 AC 11/01 Propionate JOSE MANUEL 0018 Lidocaine 1 PAT Q24H PRN 10/29 1445 AC EXT Lorazepam 0.5 MG AT BEDTIME PRN 10/29 1730 AC 10/31 PO 06/20 1729 2118 Metoprolol Succinate 25 MG DAILY 10/29 1715 AC 10/30 PO 1826 Metoprolol Tartrate 12.5 MG ONCE ONE 10/31 1900 DC 10/31 PO 10/31 1901 1935 Morphine Sulfate 2 MG Q4P PRN 10/29 1445 AC IV Omeprazole 40 MG BID 11/01 1000 UNVr PO Omeprazole 40 MG DAILY AC 10/30 1550 DC 11/01 PO 0601 Patient Medication 1 ED .STK-MED ONE 10/31 1408 DC Teaching ED 10/31 1409 Polyethylene Glycol 1 GAL SEE ADMIN CRITERIA 10/30 1600 AC 10/30 PO 1953 Last 24 Hrs of Lab/Mauricio Results Last 24 Hrs of Labs/Mics: Laboratory Tests 11/01/16 0655: CBC w Diff Pending, WBC Pending, RBC Pending, Hgb Pending, Hct Pending, MCV Pending, MCH Pending, RDW Pending, Plt Count Pending, MPV Pending, PUBS MCHC Pending Assessment/Plan Assessment: This is a 71-year-old female with past medical history of hypertension, anxiety, arthritis, chronic cystitis who presented to the emergency department on the afternoon of 10/29/2016 after experiencing a transient presyncopal episode. This is likely due to acute blood loss anemia which has occurred due to blood loss through the GI tract. #Acute blood loss anemia due to upper GI bleed Patient has been tolerating by mouth intake well. Awaiting biopsy results. Maintain 2 large IV bore. H&H this morning 7.3 and 22.3 Repeat H&H tomorrow in am. If stable patient can be discharged. Omeprazole by mouth for 40 mg twice a day. Repeat CBC in a.m. #Paroxysmal atrial fibrillation. At the time of admission the patient was in normal sinus rhythm. Continues to be in NSR Eliquis will be discontinued. Patient will be eligible for holter as outpatient. In addition the patient will be started on aspirin as long as her CBC stable. #History of headache. Pain relief with Tylenol as needed. #History of hypertension. Last BP 120/70 Continue antihypertensives (metoprolol) for now. #History of anxiety Lorazepam 0.5 mg by mouth when necessary. Code Full code DVT prophylaxis ALP S Problem List: 1. GI bleed 2. HTN (hypertension) 3. Afib Pain Ratin Pain Location: No Pain Pain Goal: Remain pain free Pain Plan: NA Tomorrow's Labs & Rationales: CBC: Monitor H/H in the setting of anemia.
[2016-11-01 06:29] VITALS: BP 110/70
[2016-11-01] MEDS ORDERED: OMEPRAZOLE40 M1 PO (08:01)
[2016-11-01 09:10] LABS: ABSOLUTE BASOPHIL COUNT 0 /CUMM (0.0-0.2); ABSOLUTE EOSINOPHIL COUNT 0.2 /CUMM (0.0-0.7); ABSOLUTE MONOCYTE COUNT 0.5 /CUMM (0.10-0.60); BASOPHIL % 0.5 % (0.0-2.0)
[2016-11-01 09:16] LABS: GRANULOCYTE % 63.9 % (42.2-75.2); HEMATOCRIT 22.3 % (37-47); MEAN CORPUSCULAR HGB 28.4 PG (27.0-31.0); MEAN CORPUSCULAR HGB CONC 32.7 G/DL (33.0-37.0); MEAN CORPUSCULAR VOLUME 86.9 FL (81.0-99.0); MEAN PLATELET VOLUME 11.6 FL (7.4-10.4); PLATELET COUNT 149 /CUMM (130-400); RBC DISTRIBUTION WIDTH 14.6 % (11.5-14.5); RED BLOOD CELL CT 2.57 /CUMM (4.20-5.40); WHITE BLOOD CELL COUNT 7.8 /CUMM (4.8-10.8)
--- NOTE | 2016-11-01 11:19 | NUR ---
SHIFT NOTE: PATIENT DOING WELL TODAY, AFTER SHOWER PATIENT C/O "WEIRD FEELING" IN CHEST, DR POST AWARE AND INTO SEE PATIENT,. VSS AT THAT TIME WNL WITH TACHYCARDIA OF 116 NOTED, AT THIS TIME DECISION MADE FOR BLOOD TRANSFUSION H/H WAS LOW, PATIENT IV LEAKING, DEACON RN PLACED NEW IV, AND TYPE AND CROSS DRAWN, PATIENT WISHES FOR SMALL DOSE OF ATIVAN DR POST PAGED AWAITING RETURN CALL, AT THIS TIME PATIENT COMFORT AND SAFETY MAINTAINED.
--- NOTE | 2016-11-01 12:37 | PN- Cardiology ---
Subjective Subjective: Feeling well. No chest pain. No palpitations. No diaphoresis. No nausea or vomiting. Objective Vital Signs and I&Os Vital Signs Date Time Temp Pulse Resp B/P B/P Pulse O2 O2 Flow FiO2 Mean Ox Delivery Rate 11/01 0929 116 120/70 11/01 0629 98.1 100 20 110/70 100 Room Air 10/31 2219 98.1 78 20 100/60 96 Room Air 10/31 2002 82 120/64 10/31 1935 82 120/64 10/31 1907 95 106/64 10/31 1844 85 106/64 10/31 1837 98.1 89 20 90/60 95 Room Air Intake & Output 11/01 1600 11/01 0800 11/01 0000 10/31 1600 10/31 0800 10/31 0000 Intake Total 053 045 4373 960 2000 Output Total 1050 Balance 440 600 70 960 2000 Intake, IV 400 600 Intake, Oral 440 [phone] [id number] Number 4 3 Bowel Movements Output, Urine 1050 Physical Exam: Gen: The patient is in no acute distress HEENT: Normal nose, ears, and oropharynx. Pupils equal bilaterally. Conjunctiva normal. Neck: Supple with no JVD, no masses, and no thyromegaly Lungs: Clear to auscultation with normal respiratory effort Heart: RRR, S1, S2, no murmurs. No peripheral edema, 2+ pulses in the lower extremities bilaterally Abdomen: Soft, nontender, no masses. No hepatomegaly. No splenomegaly Extremities: No clubbing or cyanosis. Normal muscle strength in the upper and lower extremities Skin: Normal skin turgor with no skin ulcers or lesions noted. Current Medications: Current Medications Sig/Trevor Start time Last Medication Dose Route Stop Time Status Admin Acetaminophen 650 MG Q6P PRN 10/29 1445 AC 10/30 PO 0828 Apixaban 5 MG BID 11/01 1000 CAN PO Chlorhexidine 1 GM .STK-MED ONE 10/31 1406 DC Gluconate TOP 10/31 1407 Fluticasone 2 SPRAY DAILY PRN 10/29 1430 AC 11/01 Propionate JOSE MANUEL 0018 Lidocaine 1 PAT Q24H PRN 10/29 1445 AC EXT Lorazepam 0.25 MG ONE ONE 11/01 1145 DC 11/01 PO 11/01 1146 1144 Lorazepam 0.5 MG AT BEDTIME PRN 10/29 1730 AC 10/31 PO 11/05 1729 2118 Metoprolol Succinate 25 MG DAILY 10/29 1715 AC 11/01 PO 0929 Metoprolol Tartrate 12.5 MG ONCE ONE 10/31 1900 DC 10/31 PO 10/31 1901 1935 Morphine Sulfate 2 MG Q4P PRN 10/29 1445 AC IV Omeprazole 40 MG BID 11/01 1000 AC PO Omeprazole 40 MG DAILY AC 10/30 1550 DC 11/01 PO 0601 Patient Medication 1 ED .STK-MED ONE 10/31 1408 DC Teaching ED 10/31 1409 Polyethylene Glycol 1 GAL SEE ADMIN CRITERIA 10/30 1600 AC 10/30 PO 1953 Results Last 48 Hrs of Labs/Mics: Laboratory Tests 11/01/16 0655: CBC w Diff NO MAN DIFF REQ, RBC 2.57 L, MCV 86.9, MCH 28.4, RDW 14.6 H, MPV 11.6 H, Gran % 63.9, Lymphocytes % 26.2, Monocytes % 6.4, Eosinophils % 3.0, Basophils % 0.5, Absolute Granulocytes 5.0, Absolute Lymphocytes 2.0, Absolute Monocytes 0.5, Absolute Eosinophils 0.2, Absolute Basophils 0, PUBS MCHC 32.7 L 10/31/16 0610: CBC w Diff NO MAN DIFF REQ, RBC 2.92 L, MCV 87.6, MCH 28.8, RDW 14.4, MPV 12.2 H, Gran % 62.5, Lymphocytes % 29.7, Monocytes % 5.3, Eosinophils % 1.9, Basophils % 0.6, Absolute Granulocytes 7.0 H, Absolute Lymphocytes 3.3, Absolute Monocytes 0.6, Absolute Eosinophils 0.2, Absolute Basophils 0.1, PUBS MCHC 32.8 L Assessment/Plan Assessment/Plan Assessment: 1. Paroxysmal atrial fibrillation, currently in sinus rhythm 2. Hypertension 3. Anticoagulated on Eliquis. Anti-coagulation is on hold for GI bleed 4. Acute GI bleed with anemia 5. s/p upper endoscopy showing duodenal ulcer Plan: * The patient has now had documented atrial fibrillation in 2 years. Given the acute GI bleed, I recommend keeping her off anticoagulation, and monitoring for atrial fibrillation. If she has recurrent atrial fibrillation, then Eliquis will be restarted. * I recommend treating with aspirin 81 mg daily while the patient is off Eliquis * I advised her to follow up with me one week after discharge. Arrange for a Holter monitor as an outpatient to evaluate for recurrence of atrial fibrillation Continue telemetry? No
[2016-11-01] MEDS ORDERED: ASPIRIN81 M4 PO (13:24)
[2016-11-01 14:43] VITALS: BP 114/68
--- NOTE | 2016-11-01 17:48 | PN- Gastroenterology ---
Assessment/Plan Assessment/Recommendations: * GI bleed/anemia in an anticoagulated patient. No ongoing bleeding. Transfused today for symptomatic anemia. * Nonbleeding duodenal ulcer on endoscopy. Gastric biopsies positive for Helicobacter pylori. * Colonoscopy with resection of 2 polyps (pathology pending), diverticulosis, and nonbleeding cecal angiodysplasia. Recommendations * Regular diet * Check CBC in the morning. Probable discharge if stable. * Treatment with Pylera for 14 days, as well as a PPI twice a day for 14 days, followed by PPI once daily for 3 months (or longer, if on aspirin). * No anticoagulation, as per cardiology. * Await pathology of colonic polyps. * Outpatient CBC midweek. * Office visit with me in 3-4 weeks Subjective Subjective: No melena/hematochezia. No nausea, vomiting, pain. Received 1 unit of packed red blood cells today for symptomatic anemia. Objective Vital Signs and I&Os Vital Signs Date Time Temp Pulse Resp B/P B/P Pulse O2 O2 Flow FiO2 Mean Ox Delivery Rate 11/01 1443 98.7 91 20 114/68 96 11/01 0929 116 120/70 11/01 0629 98.1 100 20 110/70 100 Room Air 10/31 2219 98.1 78 20 100/60 96 Room Air 10/31 2002 82 120/64 10/31 1935 82 120/64 10/31 1907 95 106/64 10/31 1844 85 106/64 10/31 1837 98.1 89 20 90/60 95 Room Air Intake & Output 11/01 1600 11/01 0400 10/31 1600 10/31 0400 10/30 1600 10/30 0400 Intake Total 3500 543 6338 2000 1400 Output Total 1050 200 Balance 1153 506 8639 2000 1200 Intake, IV 1000 1200 Intake, Oral 6626 597 2116 2000 200 Number 1 7 Bowel Movements Output, Urine 1050 200 Physical Exam: Appears well. Sclera anicteric. No adenopathy. Abdomen soft and nontender. Current Medications: Current Medications Sig/Trevor Start time Last Medication Dose Route Stop Time Status Admin Acetaminophen 650 MG Q6P PRN 10/29 1445 AC 10/30 PO 0828 Apixaban 5 MG BID 11/01 1000 CAN PO Aspirin 81 MG DAILY 11/02 1000 AC PO Fluticasone 2 SPRAY DAILY PRN 10/29 1430 AC 11/01 Propionate JOSE MANUEL 0018 Lidocaine 1 PAT Q24H PRN 10/29 1445 AC EXT Lorazepam 0.25 MG ONE ONE 11/01 1145 DC 11/01 PO 11/01 1146 1144 Lorazepam 0.5 MG AT BEDTIME PRN 10/29 1730 AC 10/31 PO 11/05 1729 2118 Metoprolol Succinate 25 MG DAILY 10/29 1715 AC 11/01 PO 0929 Metoprolol Tartrate 12.5 MG ONCE ONE 10/31 1900 DC 10/31 PO 10/31 1901 1935 Morphine Sulfate 2 MG Q4P PRN 10/29 1445 AC IV Omeprazole 40 MG BID 11/01 1000 AC PO Omeprazole 40 MG DAILY AC 10/30 1550 DC 11/01 PO 0601 Polyethylene Glycol 1 GAL SEE ADMIN CRITERIA 10/30 1600 AC 10/30 PO 195 Results Pertinent Lab Results: Laboratory Tests 11/01 10/31 0655 0610 Hematology CBC w Diff NO MAN DIFF REQ NO MAN DIFF REQ WBC (4.8 - 10.8 /CUMM) 7.8 11.2 H RBC (4.20 - 5.40 /CUMM) 2.57 L 2.92 L Hgb (12.0 - 16.0 G/DL) 7.3 *L 8.4 L Hct (37 - 47 %) 22.3 L 25.5 L MCV (81.0 - 99.0 FL) 86.9 87.6 MCH (27.0 - 31.0 PG) 28.4 28.8 RDW (11.5 - 14.5 %) 14.6 H 14.4 Plt Count (130 - 400 /CUMM) 149 177 MPV (7.4 - 10.4 FL) 11.6 H 12.2 H Gran % (42.2 - 75.2 %) 63.9 62.5 Lymphocytes % (20.5 - 51.1 %) 26.2 29.7 Monocytes % (1.7 - 9.3 %) 6.4 5.3 Eosinophils % (0 - 5 %) 3.0 1.9 Basophils % (0.0 - 2.0 %) 0.5 0.6 Absolute Granulocytes (1.4 - 6.5 /CUMM) 5.0 7.0 H Absolute Lymphocytes (1.2 - 3.4 /CUMM) 2.0 3.3 Absolute Monocytes (0.10 - 0.60 /CUMM) 0.5 0.6 Absolute Eosinophils (0.0 - 0.7 /CUMM) 0.2 0.2 Absolute Basophils (0.0 - 0.2 /CUMM) 0 0.1 PUBS MCHC (33.0 - 37.0 G/DL) 32.7 L 32.8 L 10/30 10/30 1143 0640 Chemistry Sodium (137 - 145 mmol/L) 139 Potassium (3.5 - 5.1 mmol/L) 3.7 Chloride (98 - 107 mmol/L) 108 H Carbon Dioxide (22 - 30 mmol/L) 24 Anion Gap (5 - 16) 7 BUN (7 - 17 mg/dL) 13 Creatinine (0.5 - 1.0 mg/dL) 0.6 Estimated GFR (>60 ml/min) > 60 BUN/Creatinine Ratio (7 - 25 %) 21.7 Hematology CBC w Diff NO MAN DIFF REQ NO MAN DIFF REQ WBC (4.8 - 10.8 /CUMM) 7.8 7.2 RBC (4.20 - 5.40 /CUMM) 2.60 L 2.38 L Hgb (12.0 - 16.0 G/DL) 7.5 L 7.0 *L Hct (37 - 47 %) 22.2 L 20.5 L MCV (81.0 - 99.0 FL) 85.4 86.3 MCH (27.0 - 31.0 PG) 28.9 29.4 RDW (11.5 - 14.5 %) 14.1 14.4 Plt Count (130 - 400 /CUMM) 137 118 L MPV (7.4 - 10.4 FL) 12.0 H 11.6 H Gran % (42.2 - 75.2 %) 59.4 56.2 Lymphocytes % (20.5 - 51.1 %) 32.5 34.9 Monocytes % (1.7 - 9.3 %) 5.9 6.7 Eosinophils % (0 - 5 %) 1.6 1.7 Basophils % (0.0 - 2.0 %) 0.6 0.5 Absolute Granulocytes (1.4 - 6.5 /CUMM) 4.6 4.1 Absolute Lymphocytes (1.2 - 3.4 /CUMM) 2.5 2.5 Absolute Monocytes (0.10 - 0.60 /CUMM) 0.5 0.5 Absolute Eosinophils (0.0 - 0.7 /CUMM) 0.1 0.1 Absolute Basophils (0.0 - 0.2 /CUMM) 0 0 PUBS MCHC (33.0 - 37.0 G/DL) 33.8 34.0 / 1905 Chemistry Lactic Acid (0.7 - 2.1 mmol/L) 1.2 Hematology CBC w Diff NO MAN DIFF REQ WBC (4.8 - 10.8 /CUMM) 11.4 H RBC (4.20 - 5.40 /CUMM) 2.91 L Hgb (12.0 - 16.0 G/DL) 8.2 L Hct (37 - 47 %) 25.0 L MCV (81.0 - 99.0 FL) 85.8 MCH (27.0 - 31.0 PG) 28.3 RDW (11.5 - 14.5 %) 14.3 Plt Count (130 - 400 /CUMM) 153 MPV (7.4 - 10.4 FL) 11.8 H Gran % (42.2 - 75.2 %) 59.9 Lymphocytes % (20.5 - 51.1 %) 32.6 Monocytes % (1.7 - 9.3 %) 6.2 Eosinophils % (0 - 5 %) 0.9 Basophils % (0.0 - 2.0 %) 0.4 Absolute Granulocytes (1.4 - 6.5 /CUMM) 6.8 H Absolute Lymphocytes (1.2 - 3.4 /CUMM) 3.7 H Absolute Monocytes (0.10 - 0.60 /CUMM) 0.7 H Absolute Eosinophils (0.0 - 0.7 /CUMM) 0.1 Absolute Basophils (0.0 - 0.2 /CUMM) 0 PUBS MCHC (33.0 - 37.0 G/DL) 33.0
[2016-11-01 22:49] VITALS: BP 110/70
[2016-11-01 22:52] LABS: ABSOLUTE BASOPHIL COUNT 0 /CUMM (0.0-0.2); ABSOLUTE EOSINOPHIL COUNT 0.3 /CUMM (0.0-0.7); ABSOLUTE GRANULOCYTE CT 6.8 /CUMM (1.4-6.5); ABSOLUTE LYMPH COUNT 2.7 /CUMM (1.2-3.4); ABSOLUTE MONOCYTE COUNT 0.7 /CUMM (0.10-0.60); BASOPHIL % 0.4 % (0.0-2.0); EOSINOPHIL % 2.4 % (0-5); GRANULOCYTE % 64.3 % (42.2-75.2); MEAN CORPUSCULAR HGB 29.3 PG (27.0-31.0); MEAN CORPUSCULAR HGB CONC 32.8 G/DL (33.0-37.0); MEAN CORPUSCULAR VOLUME 89.1 FL (81.0-99.0); MEAN PLATELET VOLUME 11.1 FL (7.4-10.4); PLATELET COUNT 155 /CUMM (130-400); RBC DISTRIBUTION WIDTH 15.1 % (11.5-14.5); RED BLOOD CELL CT 3.14 /CUMM (4.20-5.40); WHITE BLOOD CELL COUNT 10.5 /CUMM (4.8-10.8)
--- NOTE | 2016-11-02 06:25 | PN- Housestaff ---
See Addendum Subjective Follow-up For: [place] Subjective: Ms. Mejía was seen and examined this morning. Resting comfortably in bed. Patient reports no issues overnight. She was able to get some rest. This morning after shower she does not feel any nausea or lightheadedness. She denies any she's been tolerating by mouth intake well. She denies any fever, chills, nausea, vomiting. Review of Systems Constitutional: Reports: see HPI. Objective Last 24 Hrs of Vital Signs/I&O Vital Signs Date Time Temp Pulse Resp B/P B/P Pulse O2 O2 Flow FiO2 Mean Ox Delivery Rate 11/01 2249 98.1 78 20 110/70 96 Room Air 11/01 1443 98.7 91 20 114/68 96 11/01 0929 116 120/70 11/01 0629 98.1 100 20 110/70 100 Room Air Intake & Output 11/02 0800 11/02 0000 11/01 1600 Intake Total 100 600 Output Total Balance 100 600 Intake, Oral 100 600 Number 1 Bowel Movements Physical Exam General Appearance: Alert Cardiovascular: Regular Rate, Normal S1, Normal S2 Lungs: Clear to Auscultation Assessment/Plan Assessment: This is a 71-year-old female with past medical history of hypertension, anxiety, arthritis, chronic cystitis who presented to the emergency department on the afternoon of 10/29/2016 after experiencing a transient presyncopal episode. This is likely due to acute blood loss anemia which has occurred due to blood loss through the GI tract. #Acute blood loss anemia due to upper GI bleed Patient has been tolerating by mouth intake well. Awaiting biopsy results. Maintain 2 large IV bore. H&H this morning 10.30.4 Omeprazole by mouth for 40 mg twice a day. Pylera Capsules ordered to begin as an outpatient. #Leukocytosis: Although the white blood cell count was elevated the patient had no symptoms or complaints, her vitals were stable. She denied any diarrhea or loose stool. She denied any cough. She denies any shortness of breath. She was afebrile. We have given her a script to have a CBC done on 11/04/2016. #Paroxysmal atrial fibrillation. At the time of admission the patient was in normal sinus rhythm. Continues to be in NSR Eliquis will be discontinued. Patient will be eligible for holter as outpatient. In addition the patient will be started on aspirin as long as her CBC stable. #History of headache. Pain relief with Tylenol as needed. #History of hypertension. Last BP 124/80 Continue antihypertensives (metoprolol) for now. #History of anxiety Lorazepam 0.5 mg by mouth when necessary. Code Full code DVT prophylaxis ALP S Problem List: 1. HTN (hypertension) 2. GI bleed 3. Anemia Pain Ratin Pain Location: No Pain Pain Goal: Remain pain free Pain Plan: Tylenol PRN Tomorrow's Labs & Rationales: NO LAbs
[2016-11-02 07:24] VITALS: BP 124/80
[2016-11-02 07:59] LABS: ABSOLUTE BASOPHIL COUNT 0.1 /CUMM (0.0-0.2); ABSOLUTE EOSINOPHIL COUNT 0.3 /CUMM (0.0-0.7); ABSOLUTE GRANULOCYTE CT 9.7 /CUMM (1.4-6.5); ABSOLUTE LYMPH COUNT 2.8 /CUMM (1.2-3.4); ABSOLUTE MONOCYTE COUNT 0.5 /CUMM (0.10-0.60); BASOPHIL % 0.4 % (0.0-2.0); EOSINOPHIL % 2.2 % (0-5); GRANULOCYTE % 72.5 % (42.2-75.2); HEMATOCRIT 30.4 % (37-47); MEAN CORPUSCULAR HGB 29.7 PG (27.0-31.0); MEAN CORPUSCULAR HGB CONC 33.1 G/DL (33.0-37.0); MEAN CORPUSCULAR VOLUME 89.7 FL (81.0-99.0); MEAN PLATELET VOLUME 11.9 FL (7.4-10.4); RBC DISTRIBUTION WIDTH 15.5 % (11.5-14.5); RED BLOOD CELL CT 3.39 /CUMM (4.20-5.40); WHITE BLOOD CELL COUNT 13.3 /CUMM (4.8-10.8)
[2016-11-02 09:21] VITALS: BP 134/68
[2016-11-02 09:30] LABS: PLATELET COUNT 196 /CUMM (130-400)
[2016-11-02] MEDS ORDERED: PYLERA CAPSULE1 EACH PO (09:45)
[2016-11-02] MEDS ORDERED: ASPIRIN81 M4 PO ×2 (09:46→09:48)
[2016-11-02] MEDS ORDERED: OMEPRAZOLE40 M1 PO (09:46)
== END 2016-11-02 12:45 | DRG 378 ==
LOC: ERH 09:07 → ERHI 13:06 → 2NA 13:06 → ENRESERV 13:32 → ENTRNSPT 13:51 → 2NA 14:36 → CMPTRNSPT 15:14 → ENPENDDIS 11-02 11:35 → 2NA 11-02 12:45
PROVIDERS: Emergency Medicine; Student in an Organized Health Care Education/Training Program; ADMIT Internal Medicine
PROC: 0DB68ZX Excision of Stomach, Via Natural or Artificial Opening Endoscopic, Diagnostic (ICD-10-PCS; principal; 2016-10-30)
PROC: 0DBK8ZX Excision of Ascending Colon, Via Natural or Artificial Opening Endoscopic, Diagnostic (ICD-10-PCS; 2016-10-30)
DX: K92.2 Gastrointestinal hemorrhage, unspecified (principal); D62 Acute posthemorrhagic anemia; I48.0 Paroxysmal atrial fibrillation; D12.2 Benign neoplasm of ascending colon; Z79.01 Long term (current) use of anticoagulants; K57.90 Diverticulosis of intestine, part unspecified, without perforation or abscess without bleeding; K26.9 Duodenal ulcer, unspecified as acute or chronic, without hemorrhage or perforation; K44.9 Diaphragmatic hernia without obstruction or gangrene; K20.9 Esophagitis, unspecified; K55.20 Angiodysplasia of colon without hemorrhage; I10 Essential (primary) hypertension; F41.9 Anxiety disorder, unspecified
CPT/HCPCS: 2NAP; 36415; 82436; 86920; 88305; 88312; 93005; 93010; 96361; 96374; 96376; J0131; J3490; J7040; J7042; J7060; P9016

== ENCOUNTER 2017-06-18 20:55 | Inpatient (IN) | payer OTHER ==
[~2017-06-18] VITALS: Ht 147.3 cm; Wt 68.9 kg
[~2017-06-18 20:55] MED LIST changes: +ASPIRIN81 M4 PO; +CITRACEL PO; +ELIQUIS5 M1 PO; +FLUTICASONE PRO16 GM NASB; +LORAZEPAM0.5 M1 PO; +METOPROLOL SUCC25 M1 PO; +OMEPRAZOLE40 M1 PO; +PYLERA CAPSULE1 EACH PO; +TUMS200 MG PO
--- NOTE | 2017-06-18 23:14 | ED NECK/BACK PAIN COMPLAINT ---
History of Present Illness General Chief Complaint: Neck/Upper Back Pain/Injury Stated Complaint: "LIFTED SHOPPING BAGS" BACK PAIN PER PT Source: patient, family, old records Exam Limitations: no limitations Vital Signs & Intake/Output Vital Signs & Intake/Output Vital Signs Date Time Temp Pulse Resp B/P B/P Pulse O2 O2 Flow FiO2 Mean Ox Delivery Rate 06/182 97.2 72 18 170/94 98 Room Air ED Intake and Output 06/19 0000 06/18 1200 Intake Total Output Total Balance Patient 153 lb Weight Allergies Coded Allergies: amoxicillin (RASH 10/29/16) clarithromycin (From BIAXIN) (RASH 10/29/16) fentanyl (UNKNOWN 10/29/16) midazolam (UNKNOWN 10/29/16) ibuprofen (NAUSEA 10/29/16) Reconcile Medications Aspirin (Aspirin*) 81 MG TAB.CHEW 81 MG PO DAILY Anticoagulation ..Do not take if you notice your stool is black, or you experience bleeding. Calcium Carbonate (TUMS) 200 MG CALCIUM (500 MG) TAB.CHEW 2 TAB PO Q4P HEARTBURN (Reported) [CITRACEL] 1 TAB PO DAILY SUPPLEMENT (Reported) Fluticasone Propionate 50 MCG/ACTUATION SPRAY.SUSP 1 SPRAY NASB DAILY CONGESTION (Reported) Loratadine (Claritin) 10 MG CAPSULE 1 TAB PO DAILY CONGESTION (Reported) Lorazepam 0.5 MG TABLET 0.5 TAB PO QHS SLEEP (Reported) Metoprolol Succinate 25 MG TAB 1 TAB PO DAILY HTN (Reported) Omeprazole 40 MG CAPSULE. 1 CAP PO BID Ulcer Prophylaxis Take this medication for twice per day for 14 days. Then once per day after. Ondansetron (Zofran Odt) 4 MG TAB.RAPDIS 1 TAB PO Q6 PRN NAUSEA Triage Note: 72F WAS DOING WORK AROUND THE HOUSE 3 DAYS AGO, HAS DEVELOPED BACK PAIN AND NOW IT RADIATES AROUND BACK AND INTO RIGHT RIB AREA PAIN. HX GASTRIC ULCER. HX AFIB. +N/-V/-D WITH POOR APPETITE. TAKING TYLENOL WITHOUT RELIEF. DENIES HEMATURIA AND NO BLOOD TO STOOL. SLIGHT DIZZINESS WHEN PAIN IS BAD. 12/26 Triage Nurses Notes Reviewed? yes Onset: Abrupt HPI: 72 year old female presents to the ER for chief complaint of back pain radiating to her epigastric region for the past few days. She states that the back pain started on friday after lifting heavy bags and vaccuming at home. Pain was worse with movement initially but now it is radiating around both sides to her epigastric region. Patient was worried because she has a history of an ulcer with GI bleed. She's been off her anticoagulation. Usually she is pretty well controlled on medicines for her stomach but in the last 2 days his mistake increasing amount of times. She was going to call her GI doctor to let him know that her symptoms were getting worse. No vomiting or diarrhea. She denies any black or bloody stools and states that she has been paying attention to them. Past History Travel History Traveled to [place] past 21 day No Medical History Any Pertinent Medical History? 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 FHx: myocardial infarction FATHER, ; Cause: Heart attack. FHx: myocardial infarction BROTHER FATHER Hx Contributory? No Review of Systems Review of Systems Constitutional: Denies: chills, fever. Eyes: Reports: no symptoms. Ears, Nose, Throat, Mouth: Reports: no symptoms. Respiratory: Denies: cough, short of breath, sputum production. Cardiovascular: Denies: chest pain. Gastrointestinal/Abdominal: Reports: abdominal pain. Musculoskeletal: Reports: back pain. Skin: Reports: no symptoms. Neurological/Psychological: Reports: no symptoms. All Other Systems: Reviewed and Negative Physical Exam Physical Exam General Appearance: well developed/nourished, mild distress Head: atraumatic Eyes: Bilateral: PERRL, EOMI. Ears, Nose, Throat, Mouth: hearing grossly normal Neck: normal inspection, supple, full range of motion Respiratory: normal breath sounds Cardiovascular: regular rate/rhythm Peripheral Pulses: 2+ radial (R), 2+ radial (L) Gastrointestinal: normal bowel sounds, soft, tenderness (MILD EPIGASTRIC) Back: normal inspection Extremities: normal range of motion Straight Leg Raising: Right: Negative. Left: Negative. Neurologic/Psych: awake, alert, oriented x 3, normal mood/affect Skin: intact, normal color, warm/dry Core Measures CVA/TIA Diagnosis: No Progress Differential Diagnosis: myofascial strain, pyelo/UTI, sciatica, T/L spine injury , ureterolithiasis, GASTRIC ULCER, GI BLEED, PANCREATITIS Plan of Care: Orders Procedure Date/time Status Nothing by Mouth 06/[address] in observation 06/19 329 Active ED Holding Orders 06/19 329 Active Vital Signs 06/19 329 Active Code Status 06/19 329 Active URINALYSIS 06/18 2323 Complete LIPASE 06/18 2323 Complete LACTIC ACID 06/18 2323 Complete COMPREHENSIVE METABOLIC PANEL 06/18 2323 Complete CBC WITHOUT DIFFERENTIAL 06/18 2323 Complete EKG 06/18 2110 Active Current Medications Sig/Trevor Start time Last Medication Dose Stop Time Status Admin Acetaminophen 650 MG ONCE ONE 06/19 329 UNVr (Tylenol) 06/19 033 Dextrose/Sodium 1,000 ML Q6H 06/19 033 UNVr Chloride (D5W-1/2 Normal Saline 1000ML) Acetaminophen 975 MG ONCE ONE 06/19 0315 CANr (Tylenol) 06/19 0316 Laboratory Tests 06/19/17 0224: Lactic Acid Cancelled 06/19/17 0010: Urine Color YEL, Urine Clarity CLEAR, Urine pH 6.0, Ur Specific [place] >= 1.030 , Urine Protein NEG, Urine Ketones 15 H, Urine Nitrite NEG, Urine Bilirubin NEG , Urine Urobilinogen 0.2, Ur Leukocyte Esterase NEG, Ur Microscopic SEDIMENT EXAMINED, Urine RBC 1-3, Urine WBC RARE, Ur Epithelial Cells RARE, Urine Bacteria RARE H, Urine Mucus FEW, Urine Hemoglobin SMALL H, Urine Glucose NEG 06/18/17 2330: Anion Gap 14, Estimated GFR > 60, BUN/Creatinine Ratio 34.0 H, Glucose 105 H, Lactic Acid 1.0, Calcium 9.2, Total Bilirubin 0.4, AST 25, ALT 31, Alkaline Phosphatase 101, Total Protein 7.0, Albumin 4.2, Globulin 2.8, Albumin/Globulin Ratio 1.5, Lipase 718 H, CBC w Diff NO MAN DIFF REQ, RBC 4.64, MCV 82.1, MCH 27.0, MCHC 32.9 L, RDW 14.3, MPV 12.0 H, Gran % 78.5 H, Lymphocytes % 14.0 L , Monocytes % 6.5, Eosinophils % 0.9, Basophils % 0.1, Absolute Granulocytes 11.7 H, Absolute Lymphocytes 2.1, Absolute Monocytes 1.0 H, Absolute Eosinophils 0.1, Absolute Basophils 0 2:50 AM PATIETN TOLERATED PO WITHOUT DIFFICULTY. WILL RECOMMEND CLEAR LIQUID DIET, F/U WITH GI AND PCP. ZOFRAN FOR NAUSEA. WILL RETURN IF WORSE 3:18 AM PATIENT VOMITED PRIOR TO DISCHARGE, DOES NOT WANT TO STAY BUT CANNOT TOLERATE PO. DR HA CONNOLLY. Diagnostic Imaging: Viewed by Me: CT Scan. Discussed w/RAD: CT Scan. Radiology Impression: PATIENT: NAREN BROWN PRESENT AGE: 72 PATIENT ACCOUNT NO: [id number] : 45 LOCATION: [facility] ORDERING PHYSICIAN: Madeline Massey MD SERVICE DATE: 06/19/17 EXAM TYPE: CAT - CT ABD & PELVIS W/O IV CONTRAS EXAMINATION: CT ABDOMEN AND PELVIS WITHOUT CONTRAST CLINICAL INFORMATION: Bilateral flank pain radiating to the abdomen. Elevated lipase. COMPARISON: 04/01/2013 TECHNIQUE: Multidetector volumetric imaging was performed from the superior aspect of the liver through the pubic symphysis. Sagittal and coronal reformatted images were obtained on the technologist's workstation. DLP: 440 mGy-cm FINDINGS: LUNG BASES: The visualized lung bases are unremarkable. LIVER, GALLBLADDER, AND BILIARY TREE: The liver is normal in size, shape, and attenuation. 0.9 cm hypoattenuating lesion at the periphery of segment 4 likely represents a cyst, unchanged from previous. No additional hepatic lesion or biliary ductal dilatation is present. The gallbladder is not seen and likely absent. PANCREAS: The pancreatic parenchyma is unremarkable. There is minimal inflammatory stranding deep and inferior to the pancreatic body , in the region of the superior mesenteric artery. SPLEEN: Unremarkable. ADRENAL GLANDS: Unremarkable. KIDNEYS AND URETERS: The kidneys are normal in size, shape , and attenuation. No hydronephrosis, hydroureter, or calculi seen. No perinephric stranding. BLADDER: Unremarkable. GASTROINTESTINAL TRACT: Small to moderate hiatal hernia. The stomach is otherwise unremarkable. The small bowel is normal in caliber. No obstruction. Normal appendix. No colonic wall thickening or inflammatory change. Scattered diverticulosis without diverticulitis. No free air or free fluid. ABDOMINAL WALL: No significant hernia is appreciated. LYMPH NODES: Normal. VASCULAR: Mild atherosclerotic calcifications. PELVIC VISCERA: The uterus and adnexa are unremarkable. OSSEOUS STRUCTURES: No acute or suspicious osseous abnormality. Degenerative changes of the hips and spine. Prominent scoliosis. Grade 1 anterolisthesis of L5 on S1. IMPRESSION: Mild inflammatory changes deep and inferior to the pancreas, surrounding the mesenteric vasculature. This is nonspecific. The pancreatic parenchyma is unremarkable. This could still be associated with pancreatitis, particularly at the uncinate. No hydronephrosis or nephrolithiasis. DICTATED BY: Rahul Napoles MD DATE/TIME DICTATED:06/19/17148 DIALYSIS TECH: SOILA DATE/TIME TRANSCRIBED:06/19/17148 CONFIDENTIAL, DO NOT COPY WITHOUT APPROPRIATE AUTHORIZATION. <Electronically signed in Other Vendor System> SIGNED BY: Rahul Napoles MD 06/19/17 0158 Departure Departure Time of Disposition: 025 Disposition: STILL A PATIENT Condition: Stable Clinical Impression Primary Impression: Elevated lipase Referrals: Suzi CASTANON,Suzi (PCP/Family) Za CASTANON,Rupesh Pappas Departure Forms: Customer Survey General Discharge Information Prescriptions: Current Visit Scripts Ondansetron (Zofran Odt) 1 TAB PO Q6 PRN NAUSEA #20 TAB Observation Note Spoke With: Beti Lazcano MD Physician Advisor Notified: ESTEPHANIE RICO DO Place Patient In: Non-ED OBS Care Area Rationale for Observation: My rational for observation is as follows [NPO, IV FLUIDS, ANTIEMETICS, PAIN CONTROL, GI CONSULTATION].
[2017-06-19 00:05] LABS: ABSOLUTE BASOPHIL COUNT 0 /CUMM (0.0-0.2); ABSOLUTE EOSINOPHIL COUNT 0.1 /CUMM (0.0-0.7); ABSOLUTE GRANULOCYTE CT 11.7 /CUMM (1.4-6.5); ABSOLUTE LYMPH COUNT 2.1 /CUMM (1.2-3.4); BASOPHIL % 0.1 % (0.0-2.0); EOSINOPHIL % 0.9 % (0-5); GRANULOCYTE % 78.5 % (42.2-75.2); HEMATOCRIT 38.1 % (37-47); MEAN CORPUSCULAR HGB CONC 32.9 G/DL (33.0-37.0); MEAN CORPUSCULAR VOLUME 82.1 FL (81.0-99.0); PLATELET COUNT 180 /CUMM (130-400); RBC DISTRIBUTION WIDTH 14.3 % (11.5-14.5); RED BLOOD CELL CT 4.64 /CUMM (4.20-5.40); WHITE BLOOD CELL COUNT 14.9 /CUMM (4.8-10.8)
--- NOTE | 2017-06-19 01:58 | CT SCAN REPORT ---
EXAMINATION: CT ABDOMEN AND PELVIS WITHOUT CONTRAST CLINICAL INFORMATION: Bilateral flank pain radiating to the abdomen. Elevated lipase. COMPARISON: 04/01/2013 TECHNIQUE: Multidetector volumetric imaging was performed from the superior aspect of the liver through the pubic symphysis. Sagittal and coronal reformatted images were obtained on the technologist's workstation. DLP: 440 mGy-cm FINDINGS: LUNG BASES: The visualized lung bases are unremarkable. LIVER, GALLBLADDER, AND BILIARY TREE: The liver is normal in size, shape, and attenuation. 0.9 cm hypoattenuating lesion at the periphery of segment 4 likely represents a cyst, unchanged from previous. No additional hepatic lesion or biliary ductal dilatation is present. The gallbladder is not seen and likely absent. PANCREAS: The pancreatic parenchyma is unremarkable. There is minimal inflammatory stranding deep and inferior to the pancreatic body, in the region of the superior mesenteric artery. SPLEEN: Unremarkable. ADRENAL GLANDS: Unremarkable. KIDNEYS AND URETERS: The kidneys are normal in size, shape, and attenuation. No hydronephrosis, hydroureter, or calculi seen. No perinephric stranding. BLADDER: Unremarkable. GASTROINTESTINAL TRACT: Small to moderate hiatal hernia. The stomach is otherwise unremarkable. The small bowel is normal in caliber. No obstruction. Normal appendix. No colonic wall thickening or inflammatory change. Scattered diverticulosis without diverticulitis. No free air or free fluid. ABDOMINAL WALL: No significant hernia is appreciated. LYMPH NODES: Normal. VASCULAR: Mild atherosclerotic calcifications. PELVIC VISCERA: The uterus and adnexa are unremarkable. OSSEOUS STRUCTURES: No acute or suspicious osseous abnormality. Degenerative changes of the hips and spine. Prominent scoliosis. Grade 1 anterolisthesis of L5 on S1. IMPRESSION: Mild inflammatory changes deep and inferior to the pancreas, surrounding the mesenteric vasculature. This is nonspecific. The pancreatic parenchyma is unremarkable. This could still be associated with pancreatitis, particularly at the uncinate. No hydronephrosis or nephrolithiasis.
[2017-06-19] MEDS ORDERED: CLARITIN10 M3 PO (02:27)
[2017-06-19] MEDS ORDERED: ZOFRAN ODT4 M1 PO (02:52)
--- NOTE | 2017-06-19 05:40 | History & Physical ---
See Addendum General Information and HPI MD Statement: I have seen and personally examined NAREN BROWN and documented this H&P. The patient is a 72 year old F who presented with a patient stated chief complaint of [abdominal pain]. Source of Information: patient Exam Limitations: no limitations History of Present Illness: Mr. Brown a 72 year old female who presented with chief complaint of back pain radiated to epigastric area. Patient has past medical history of atrial fibrillation on aspirin, not on anticoagulation for history of upper GI bleeding , hypertension, anxiety, arthritis, chronic cystitis, upper GI bleeds, diverticulosis, duodenal ulcer, H. pylori infection not treated because of antibiotic allergy. 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 History of vomiting once of clear liquid in ED, no history of change of bowel movement, change in color of urine or stool. Patient reported similar pain couple of months ago and when she had her cholecystectomy in 2013. Denied any change in her diet, herbs medication, deep-fried foods. Patient followed Dr. Balbuena for atrial fibrillation Dr. Mendenhall for GI bleed. Allergies/Medications Allergies: Coded Allergies: amoxicillin (RASH 10/29/16) clarithromycin (From BIAXIN) (RASH 10/29/16) fentanyl (UNKNOWN 10/29/16) midazolam (UNKNOWN 10/29/16) ibuprofen (NAUSEA 10/29/16) Home Med list Aspirin (Aspirin*) 81 MG TAB.CHEW 81 MG PO DAILY Anticoagulation ..Do not take if you notice your stool is black, or you experience bleeding. Calcium Carbonate (TUMS) 200 MG CALCIUM (500 MG) TAB.CHEW 2 TAB PO Q4P HEARTBURN (Reported) [CITRACEL] 1 TAB PO DAILY SUPPLEMENT (Reported) Fluticasone Propionate 50 MCG/ACTUATION SPRAY.SUSP 1 SPRAY NASB DAILY CONGESTION (Reported) Loratadine (Claritin) 10 MG CAPSULE 1 TAB PO DAILY CONGESTION (Reported) Lorazepam 0.5 MG TABLET 0.5 TAB PO QHS SLEEP (Reported) Metoprolol Succinate 25 MG TAB 1 TAB PO DAILY HTN (Reported) Omeprazole 40 MG CAPSULE.DR 1 CAP PO BID Ulcer Prophylaxis Take this medication for twice per day for 14 days. Then once per day after. 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 FHx: myocardial infarction FATHER, ; Cause: Heart attack. FHx: myocardial infarction BROTHER FATHER Psychosocial History Who Do You Live With? child Services at Home: None Primary Language: Tajik Living Will? 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 Ambulation: independent, cane IADLs Independent: shopping, housework, finances, food prep, telephone, transportation , medication admin. Review of Systems Review of Systems Constitutional: Reports: see HPI. Denies: chills, fever, malaise. EENTM: Denies: blurred vision. Cardiovascular: Denies: chest pain, palpitations. Respiratory: Denies: cough, short of breath. Genitourinary: Denies: hematuria. Skin: Denies: rash. Exam & Diagnostic Data Last 24 Hrs of Vital Signs/I&O Vital Signs Date Time Temp Pulse Resp B/P B/P Pulse O2 O2 Flow FiO2 Mean Ox Delivery Rate 06/19 426 98.3 71 30 162/80 96 06/19 424 97.2 06/18 2111 97.2 72 18 170/94 98 Room Air Intake & Output 06/19 0800 06/19 0000 06/18 1600 Intake Total Output Total Balance Patient 69.4 kg Weight Physical Exam General Appearance Alert, Oriented X3, Cooperative, No Acute Distress Skin No Rashes Skin Temp/Moisture Exam: Warm/Dry HEENT Atraumatic, PERRLA, EOMI, Mucous Membr. moist/pink Neck Supple Lymphatic No cervical lymphadenopathy Cardiovascular Regular Rate, Normal S1, Normal S2, No Murmurs Lungs Clear to Auscultation, Normal Air Movement Abdomen Normal Bowel Sounds, Soft, No Tenderness Neurological Normal Speech, Strength at 5/5 X4 Ext, Normal Tone, Sensation Intact, Cranial Nerves 3-12 NL Assessment/Plan Assessment: Mr. Brown a 72 year old female was past medical history of atrial fibrillation on aspirin, not on anticoagulation for history of upper GI bleeding, now regular , hypertension, anxiety, arthritis, chronic cystitis, upper GI bleeds, diverticulosis, duodenal ulcer, H. pylori infection not treated because of antibiotic allergy presented with chief complaint of back pain radiated to epigastric area. On admission Vital signs 97.2, rate 72, blood pressure 170/94, respiratory rate 18 saturating 98% on room air Labs significant for WBC 14.9, H&H 12.5/38.1, platelet 1, BUN/creatinine 17/0.5, lipase 718, glucose 105, UA positive for ketones. CT abdomen and pelvis without IV contrast IMPRESSION: Mild inflammatory changes deep and inferior to the pancreas, surrounding the mesenteric vasculature. This is nonspecific. The pancreatic parenchyma is unremarkable. This could still be associated with pancreatitis, particularly at the uncinate. No hydronephrosis or nephrolithiasis. Problem list -Upper back pain with radiation to epigastric, mildly elevated lipase [address] findings with questionable pancreatitis of uncinate process -Atrial fibrillation on aspirin, currently sinus rhythm -Hypertension -Anxiety Plan Admit to general medical floor Vital signs every shift Keep nothing by mouth Continue IV fluid D5 half normal 75 mL per hour Zofran for nausea when necessary Will obtain GI consultation Consider MRI versus CT angiogram abdomen pelvis to rule out thrombus versus embolus Will obtain ESR and C-reactive protein to rule out vasculitis given the reading of CT scan of inflammation around be a mesenteric artery Continue aspirin AND metoprolol succinate 25 mg by mouth Continue PPI omeprazole 20 mg Code full DVT prophylaxis heparin subcutaneous and Alps As Ranked By This Provider Problem List: 1. Afib 2. HTN (hypertension) 3. GI bleed 4. Anemia 5. Elevated lipase Core Measures/Misc (02/02) Acute Coronary Syndrome ACS Diagnosis: No Congestive Heart Failure Congestive Heart Failure Diagnosis No Cerebrovascular Accident CVA/TIA Diagnosis: No VTE (View Protocol) VTE Risk Factors Age>40 No Mechanical VTE Prophylaxis d/t N/A MechProphylax Ordered No VTE Pharm Prophylaxis d/t NA PharmProphylax ordered Sepsis (View protocol) Sepsis Present: No
--- NOTE | 2017-06-19 08:47 | Event Note ---
Event Note Event Note: Subjective Patient is seen and examined this morning, still reports abdominal discomfort and nausea. She is currently nothing by mouth, getting D5 half normal saline at the rate of 75 mL per hour. GI consult to Dr. Mednenhall has been obtained will follow the recommendations. Assessment and plan Problem list Questionable pancreatitis (Mild inflammatory changes deep and inferior to the pancreas-and a CAT scan) History of atrial fibrillation currently in normal sinus rhythm(history of GI bleed in the past not on any anticoagulation) History of hypertension and hyperlipidemia History of anxiety PLAN: Questionable pancreatitis (Mild inflammatory changes deep and inferior to the pancreas-and a CAT scan) * Continue to monitor patient on the [facility] floor. * Continue with D5 half-normal saline at the rate of 70 per * Patient is currently nothing by mouth. * Zofran for nausea when necessary. * GI consult to Dr. Mendenhall has been obtained will follow the recommendations. CT abdomen showed Mild inflammatory changes in deep and inferior to pancreas surrounding mesenteric vasculature, will consider MRI of the abdomen versus CT angiogram for further investigation. History of atrial fibrillation currently in normal sinus rhythm(history of GI bleed in the past not on any anticoagulation): * Continue home medications. History of hypertension and hyperlipidemia: * Continue home medications History of anxiety * Continue home medications. Code full DVT prophylaxis heparin subcutaneous and Alps
[2017-06-19 09:00] LABS: ABSOLUTE BASOPHIL COUNT 0 /CUMM (0.0-0.2); ABSOLUTE EOSINOPHIL COUNT 0.1 /CUMM (0.0-0.7); ABSOLUTE GRANULOCYTE CT 10.8 /CUMM (1.4-6.5); ABSOLUTE LYMPH COUNT 2.4 /CUMM (1.2-3.4); ABSOLUTE MONOCYTE COUNT 0.8 /CUMM (0.10-0.60); BASOPHIL % 0.3 % (0.0-2.0); EOSINOPHIL % 0.6 % (0-5); GRANULOCYTE % 76.7 % (42.2-75.2); HEMATOCRIT 37.3 % (37-47); MEAN CORPUSCULAR HGB 27.2 PG (27.0-31.0); MEAN CORPUSCULAR VOLUME 82.6 FL (81.0-99.0); MEAN PLATELET VOLUME 12.6 FL (7.4-10.4); PLATELET COUNT 175 /CUMM (130-400); RBC DISTRIBUTION WIDTH 14.5 % (11.5-14.5); RED BLOOD CELL CT 4.53 /CUMM (4.20-5.40); WHITE BLOOD CELL COUNT 14.1 /CUMM (4.8-10.8)
--- NOTE | 2017-06-19 11:08 | PN- Att Addend ---
Attending Addendum Attending Brief Note Patient seen and examined, has received morphine this morning therefore now slightly feeling better. Still having abdominal and back pain but tolerable. Denies feeling nauseous currently. Vital Signs Date Time Temp Pulse Resp B/P B/P Pulse O2 O2 Flow FiO2 Mean Ox Delivery Rate 06/19 1009 66 156/72 06/19 0825 98.0 68 20 157/79 95 Room Air 06/19 0427 98.3 71 30 162/80 96 06/19 0425 97.2 06/18 2111 97.2 72 18 170/94 98 Room Air on exam; aox3, nad. cv; s,s2, rrr resp; clear b/l abd; soft not, bs+ ext; no edema Laboratory Tests 06/19 06/19 0752 0224 Chemistry Sodium (137 - 145 mmol/L) 142 Potassium (3.5 - 5.1 mmol/L) 3.6 Chloride (98 - 107 mmol/L) 100 Carbon Dioxide (22 - 30 mmol/L) 27 Anion Gap (5 - 16) 15 BUN (7 - 17 mg/dL) 11 Creatinine (0.5 - 1.0 mg/dL) 0.5 Estimated GFR (>60 ml/min) > 60 BUN/Creatinine Ratio (7 - 25 %) 22.0 Lactic Acid Cancelled C-Reactive Prot, Quant (<1.0 mg/dL) 5.5 H Triglycerides (<150 mg/dL) 65 Cholesterol (<200 MG/DL) 155 LDL Cholesterol, Calc (65 - 129 mg/dL) 73 HDL Cholesterol (40 - 60 mg/dL) 69 H Cholesterol/HDL Ratio (0.00 - 4.23 %) 2 Lipase (23 - 300 U/L) 543 H Hematology CBC w Diff NO MAN DIFF REQ WBC (4.8 - 10.8 /CUMM) 14.1 H RBC (4.20 - 5.40 /CUMM) 4.53 Hgb (12.0 - 16.0 G/DL) 12.3 Hct (37 - 47 %) 37.3 MCV (81.0 - 99.0 FL) 82.6 MCH (27.0 - 31.0 PG) 27.2 MCHC (33.0 - 37.0 G/DL) 33.0 RDW (11.5 - 14.5 %) 14.5 Plt Count (130 - 400 /CUMM) 175 MPV (7.4 - 10.4 FL) 12.6 H Gran % (42.2 - 75.2 %) 76.7 H Lymphocytes % (20.5 - 51.1 %) 16.8 L Monocytes % (1.7 - 9.3 %) 5.6 Eosinophils % (0 - 5 %) 0.6 Basophils % (0.0 - 2.0 %) 0.3 Absolute Granulocytes (1.4 - 6.5 /CUMM) 10.8 H Absolute Lymphocytes (1.2 - 3.4 /CUMM) 2.4 Absolute Monocytes (0.10 - 0.60 /CUMM) 0.8 H Absolute Eosinophils (0.0 - 0.7 /CUMM) 0.1 Absolute Basophils (0.0 - 0.2 /CUMM) 0 ESR Westergren (0 - 20 MM) 46 H 06/19 06/18 0010 2330 Chemistry Sodium (137 - 145 mmol/L) 142 Potassium (3.5 - 5.1 mmol/L) 4.0 Chloride (98 - 107 mmol/L) 102 Carbon Dioxide (22 - 30 mmol/L) 27 Anion Gap (5 - 16) 14 BUN (7 - 17 mg/dL) 17 Creatinine (0.5 - 1.0 mg/dL) 0.5 Estimated GFR (>60 ml/min) > 60 BUN/Creatinine Ratio (7 - 25 %) 34.0 H Glucose (65 - 99 mg/dL) 105 H Lactic Acid (0.7 - 2.1 mmol/L) 1.0 Calcium (8.4 - 10.2 mg/dL) 9.2 Total Bilirubin (0.2 - 1.3 mg/dL) 0.4 AST (14 - 36 U/L) 25 ALT (9 - 52 U/L) 31 Alkaline Phosphatase (<127 U/L) 101 Total Protein (6.3 - 8.2 g/dL) 7.0 Albumin (3.5 - 5.0 g/dL) 4.2 Globulin (1.9 - 4.2 gm/dL) 2.8 Albumin/Globulin Ratio (1.1 - 2.2 %) 1.5 Lipase (23 - 300 U/L) 718 H Hematology CBC w Diff NO MAN DIFF REQ WBC (4.8 - 10.8 /CUMM) 14.9 H RBC (4.20 - 5.40 /CUMM) 4.64 Hgb (12.0 - 16.0 G/DL) 12.5 Hct (37 - 47 %) 38.1 MCV (81.0 - 99.0 FL) 82.1 MCH (27.0 - 31.0 PG) 27.0 MCHC (33.0 - 37.0 G/DL) 32.9 L RDW (11.5 - 14.5 %) 14.3 Plt Count (130 - 400 /CUMM) 180 MPV (7.4 - 10.4 FL) 12.0 H Gran % (42.2 - 75.2 %) 78.5 H Lymphocytes % (20.5 - 51.1 %) 14.0 L Monocytes % (1.7 - 9.3 %) 6.5 Eosinophils % (0 - 5 %) 0.9 Basophils % (0.0 - 2.0 %) 0.1 Absolute Granulocytes (1.4 - 6.5 /CUMM) 11.7 H Absolute Lymphocytes (1.2 - 3.4 /CUMM) 2.1 Absolute Monocytes (0.10 - 0.60 /CUMM) 1.0 H Absolute Eosinophils (0.0 - 0.7 /CUMM) 0.1 Absolute Basophils (0.0 - 0.2 /CUMM) 0 Urines Urine Color (YEL,AMB,STR) YEL Urine Clarity (CLEAR) CLEAR Urine pH (5.0 - 8.0) 6.0 Ur Specific [place] (1.001 - 1.035) >= 1.030 Urine Protein (NEG,<30 MG/DL) NEG Urine Ketones (NEG) 15 H Urine Nitrite (NEG) NEG Urine Bilirubin (NEG) NEG Urine Urobilinogen (0.1 - 1.0 EU/dl) 0.2 Ur Leukocyte Esterase (NEG) NEG Ur Microscopic SEDIMENT EXAMINED Urine RBC (0 - 5 /HPF) 1-3 Urine WBC (0 - 2 /HPF) RARE Ur Epithelial Cells (NONE,FEW) RARE Urine Bacteria (NEG/NONE) RARE H Urine Mucus (FEW,NONE) FEW Urine Hemoglobin (NEG) SMALL H Urine Glucose (N MG/DL) NEG A/P: 72 y/o F with pmh sig for atrial fibrillation on aspirin, not on anticoagulation for history of upper GI bleeding, hypertension, anxiety, arthritis, chronic cystitis, upper GI bleeds, diverticulosis, duodenal ulcer, H. pylori infection not treated because of antibiotic allergy/side effects, admitted with abdominal pain radiating to back, nausea and vomiting. Patient likely has pancreatitis at the uncinate process. Due to the unusual location of negative otitis, there was some concern about questionable thrombosis leading to inflammation in that area. GI has been consulted and their consult is awaited. Question is if patient would benefit by getting an abdominal MRI versus CTA to further arterial structure. We'll discuss this per GI. Currently patient nothing by mouth and getting IV fluids. She will be kept on symptomatic treatment with antiemetics and analgesics. We will also discuss with Dr. Mendenhall about alternative treatment for H pylori. Patient claims that she was started on Pylera but had side effects from that also. She is allergic to Prevpac. DVT px; hep sq.
--- NOTE | 2017-06-19 14:54 | Cons- Gastroenterology ---
General Information and HPI Consulting Request Date of Consult: 06/19/17 Requested By: Beti Lazcano MD Reason for Consult: abdominal pain, abnromal ct scan showing peripancreatic inflammation Source of Information: patient Exam Limitations: no limitations History of Present Illness: Ms. Mejía is a 72 year old female with a history of afb and nephrolithiasis who presented to last night with complaints of back pain radiating into her abdomen that she had been having for the past week. She first noticed some back pain after lifting some bags and she thought it was muscle pain. She states the pain radiated from her back to her epigastric reason. She denies overt abdominal pain with eating. She has had some bilous vomiting, but no hematemesis. She notes that the pain was similar in quality to when her gallbladder was removed in 2013 and was also similar to when she had a bleeding ulcer in November of last year. She has been maintained on omeprazole since she was diagnosed with the ulcer and she notes that she takes it religously although she also notes that she has required a significant amount of tums since the dose was decreased from 40 mg to 20 mg a few months ago. She was not able to tolerate the pylera she was given for the h.pylori that was found on her endoscopic biopsies. She has been without any melena or brbpr. She also denies any dysphagia. Her bowel movements are normal and she denies constipation, vince colored stool or dark urine and she also denies any noticable jaundice. She has been using tylenol as needed for the pain and she denies any NSAID use. She had been doing well with tylenol, but her pain worsened last night prompting her to come to the ER. On arrival to the ED she was hemodynamically stable and afebrile. She was given IV zofran, IV protonix and 1 mg of IV MSO4 with marked improvement in her discomfort. She had a ct scan that showed some inflammatory changes around her pancreas of uncertain etiology. Allergies/Medications Allergies: Coded Allergies: amoxicillin (RASH 10/29/16) clarithromycin (From BIAXIN) (RASH 10/29/16) fentanyl (UNKNOWN 10/29/16) midazolam (UNKNOWN 10/29/16) ibuprofen (NAUSEA 10/29/16) Home Med List: Aspirin (Aspirin*) 81 MG TAB.CHEW 81 MG PO DAILY Anticoagulation ..Do not take if you notice your stool is black, or you experience bleeding. Calcium Carbonate (TUMS) 200 MG CALCIUM (500 MG) TAB.CHEW 2 TAB PO Q4P HEARTBURN (Reported) [CITRACEL] 1 TAB PO DAILY SUPPLEMENT (Reported) Fluticasone Propionate 50 MCG/ACTUATION SPRAY.SUSP 1 SPRAY NASB DAILY CONGESTION (Reported) Loratadine (Claritin) 10 MG CAPSULE 1 TAB PO DAILY CONGESTION (Reported) Lorazepam 0.5 MG TABLET 0.5 TAB PO QHS SLEEP (Reported) Metoprolol Succinate 25 MG TAB 1 TAB PO DAILY HTN (Reported) Omeprazole 40 MG CAPSULE. 1 CAP PO BID Ulcer Prophylaxis Take this medication for twice per day for 14 days. Then once per day after. Ondansetron (Zofran Odt) 4 MG TAB.RAPDIS 1 TAB PO Q6 PRN NAUSEA Current Medications: Current Medications Sig/Trevor Start time Last Medication Dose Route Stop Time Status Admin Acetaminophen 0 .STK-MED ONE 06/19 1226 DC IV Acetaminophen 650 MG Q6P PRN 06/19 0545 AC PO Acetaminophen 1,000 MG Q6P PRN 06/19 0545 AC 06/19 IV 1224 Acetaminophen 1,000 MG ONCE ONE 06/19 0430 DC 06/19 N/A 1 UNIT IV 06/19 0444 0425 Acetaminophen 0 .STK-MED ONE 06/19 0425 DC IV Acetaminophen 650 MG ONCE ONE 06/19 0330 DC PO 06/19 0331 Acetaminophen 975 MG ONCE ONE 06/19 0315 CAN PO 06/19 0316 Acetaminophen 0 .STK-MED ONE 06/19 0307 DC PO Aspirin 81 MG DAILY 06/19 1000 AC 06/19 PO 1009 Aspirin 0 .STK-MED ONE 06/19 0848 DC PO Dextrose/Sodium 1,000 ML Q13H 06/19 0545 AC 06/19 Chloride IV 0622 Dextrose/Sodium 1,000 ML Q6H 06/19 0330 DC 06/19 Chloride IV 0424 Fluticasone 1 SPRAY DAILY 06/19 1000 AC 06/19 Propionate JOSE MANUEL 1011 Heparin Sodium 0 .STK-MED ONE 06/19 0734 DC (Porcine) .ROUTE Heparin Sodium 5,000 UNIT Q8 06/19 0600 AC 06/19 (Porcine) SC 0733 Lorazepam 0.25 MG AT BEDTIME NEED.. 06/19 0600 AC PO 06/26 0559 Metoprolol Succinate 25 MG DAILY 06/19 1000 AC 06/19 PO 1009 Morphine Sulfate 0 .STK-MED ONE 06/19 0936 DC .ROUTE Morphine Sulfate 1 MG ONCE ONE 06/19 0930 DC 06/19 IV 06/19 0931 0938 Morphine Sulfate 0 .STK-MED ONE 06/19 0417 DC .ROUTE Morphine Sulfate 2 MG ONCE ONE 06/19 0400 CAN IV 06/19 0401 Ondansetron HCl 0 .STK-MED ONE 06/19 1050 DC .ROUTE Ondansetron HCl 4 MG Q8P PRN 06/19 0545 AC 06/19 IV 1047 Ondansetron HCl 0 .STK-MED ONE 06/19 0420 DC .ROUTE Ondansetron HCl 4 MG ONCE ONE 06/19 0415 DC 06/19 IV 06/19 0416 0424 Ondansetron HCl 0 .STK-MED ONE 06/19 0116 DC PO Ondansetron HCl 4 MG ONCE ONE 06/19 0045 DC 06/19 PO 06/19 0046 0112 Pantoprazole Sodium 40 MG DAILY 06/19 1000 AC 06/19 IV 0938 Pantoprazole Sodium 0 .STK-MED ONE 06/19 0848 DC IV Sodium Chloride 1,000 ML .[id number] 06/19 0545 CAN IV Tramadol HCl 0 .STK-MED ONE 06/18 2342 DC PO Tramadol HCl 50 MG ONCE ONE 06/18 2330 DC 06/19 PO 06/18 2331 0000 Trimethobenzamide HCl 0 .STK-MED ONE 06/19 0936 DC IM Trimethobenzamide HCl 200 MG ONCE ONE 06/19 0930 DC 06/19 IM 06/19 0931 0940 Past History Travel History Traveled to [place] past 21 day No Medical History Neurological: vertigo, anxiety EENT: allergies Cardiovascular: AFIB, hypertension Respiratory: NONE Gastrointestinal: NONE Hepatic: NONE Renal: nephrolithiasis, bladder infection Musculoskeletal: chronic knee pain Psychiatric: anxiety Endocrine: NONE Blood Disorders: NONE Cancer(s): NONE 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 FHx: myocardial infarction FATHER, ; Cause: Heart attack. FHx: myocardial infarction BROTHER FATHER Psychosocial History Who Do You Live With? child Services at Home: None Primary Language: Slovak Smoking Status: Never Smoked Living Will? 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 Ambulation: independent, cane IADLs Independent: shopping, housework, finances, food prep, telephone, transportation , medication admin. Review of Systems Review of Systems Constitutional: Reports: malaise. Denies: chills, diaphoresis, fever, weakness. EENTM: Denies: no symptoms. Cardiovascular: Denies: no symptoms. Respiratory: Denies: no symptoms. GI: Reports: see HPI. Genitourinary: Denies: no symptoms. Musculoskeletal: Denies: no symptoms. Skin: Denies: no symptoms. Neurological/Psychological: Denies: no symptoms. Hematologic/Endocrine: Denies: no symptoms. Immunologic/Allergic: Denies: no symptoms. All Other Systems: Reviewed and Negative Exam & Diagnostic Data Vital Signs and I&O Vital Signs Date Time Temp Pulse Resp B/P B/P Pulse O2 O2 Flow FiO2 Mean Ox Delivery Rate 06/19 1009 66 156/72 06/19 0825 98.0 68 20 157/79 95 Room Air 06/19 0427 98.3 71 30 162/80 96 06/19 0425 97.2 06/18 2112 97.2 72 18 170/94 98 Room Air Intake & Output 06/19 1600 06/19 0400 06/18 1600 06/18 0400 06/17 1600 06/17 0400 Intake Total Output Total Balance Patient 153 lb 153 lb Weight Physical Exam General Appearance: well developed/nourished, no apparent distress, alert, awake , comfortable Head: atraumatic, normal appearance Eyes: Bilateral: normal appearance. Ears, Nose, Throat: normal pharynx, normal ENT inspection, hearing grossly normal Neck: normal inspection, supple, full range of motion Respiratory: normal breath sounds, chest non-tender, no respiratory distress Cardiovascular: regular rate/rhythm Gastrointestinal: normal bowel sounds, soft, non-tender, no organomegaly Rectal: deferred Back: normal inspection, normal range of motion Extremities: normal inspection, normal capillary refill, normal range of motion Neurologic/Psych: no motor/sensory deficits, awake, alert, oriented x 3 Skin: intact, normal color, warm/dry Results Pertinent Lab Results: Laboratory Tests 06/19 06/19 4876 2630 Chemistry Sodium (137 - 145 mmol/L) 142 Potassium (3.5 - 5.1 mmol/L) 3.6 Chloride (98 - 107 mmol/L) 100 Carbon Dioxide (22 - 30 mmol/L) 27 Anion Gap (5 - 16) 15 BUN (7 - 17 mg/dL) 11 Creatinine (0.5 - 1.0 mg/dL) 0.5 Estimated GFR (>60 ml/min) > 60 BUN/Creatinine Ratio (7 - 25 %) 22.0 Lactic Acid Cancelled C-Reactive Prot, Quant (<1.0 mg/dL) 5.5 H Triglycerides (<150 mg/dL) 65 Cholesterol (<200 MG/DL) 155 LDL Cholesterol, Calc (65 - 129 mg/dL) 73 HDL Cholesterol (40 - 60 mg/dL) 69 H Cholesterol/HDL Ratio (0.00 - 4.23 %) 2 Lipase (23 - 300 U/L) 543 H Hematology CBC w Diff NO MAN DIFF REQ WBC (4.8 - 10.8 /CUMM) 14.1 H RBC (4.20 - 5.40 /CUMM) 4.53 Hgb (12.0 - 16.0 G/DL) 12.3 Hct (37 - 47 %) 37.3 MCV (81.0 - 99.0 FL) 82.6 MCH (27.0 - 31.0 PG) 27.2 MCHC (33.0 - 37.0 G/DL) 33.0 RDW (11.5 - 14.5 %) 14.5 Plt Count (130 - 400 /CUMM) 175 MPV (7.4 - 10.4 FL) 12.6 H Gran % (42.2 - 75.2 %) 76.7 H Lymphocytes % (20.5 - 51.1 %) 16.8 L Monocytes % (1.7 - 9.3 %) 5.6 Eosinophils % (0 - 5 %) 0.6 Basophils % (0.0 - 2.0 %) 0.3 Absolute Granulocytes (1.4 - 6.5 /CUMM) 10.8 H Absolute Lymphocytes (1.2 - 3.4 /CUMM) 2.4 Absolute Monocytes (0.10 - 0.60 /CUMM) 0.8 H Absolute Eosinophils (0.0 - 0.7 /CUMM) 0.1 Absolute Basophils (0.0 - 0.2 /CUMM) 0 ESR Westergren (0 - 20 MM) 46 H 06/19 06/18 0010 2330 Chemistry Sodium (137 - 145 mmol/L) 142 Potassium (3.5 - 5.1 mmol/L) 4.0 Chloride (98 - 107 mmol/L) 102 Carbon Dioxide (22 - 30 mmol/L) 27 Anion Gap (5 - 16) 14 BUN (7 - 17 mg/dL) 17 Creatinine (0.5 - 1.0 mg/dL) 0.5 Estimated GFR (>60 ml/min) > 60 BUN/Creatinine Ratio (7 - 25 %) 34.0 H Glucose (65 - 99 mg/dL) 105 H Lactic Acid (0.7 - 2.1 mmol/L) 1.0 Calcium (8.4 - 10.2 mg/dL) 9.2 Total Bilirubin (0.2 - 1.3 mg/dL) 0.4 AST (14 - 36 U/L) 25 ALT (9 - 52 U/L) 31 Alkaline Phosphatase (<127 U/L) 101 Total Protein (6.3 - 8.2 g/dL) 7.0 Albumin (3.5 - 5.0 g/dL) 4.2 Globulin (1.9 - 4.2 gm/dL) 2.8 Albumin/Globulin Ratio (1.1 - 2.2 %) 1.5 Lipase (23 - 300 U/L) 718 H Hematology CBC w Diff NO MAN DIFF REQ WBC (4.8 - 10.8 /CUMM) 14.9 H RBC (4.20 - 5.40 /CUMM) 4.64 Hgb (12.0 - 16.0 G/DL) 12.5 Hct (37 - 47 %) 38.1 MCV (81.0 - 99.0 FL) 82.1 MCH (27.0 - 31.0 PG) 27.0 MCHC (33.0 - 37.0 G/DL) 32.9 L RDW (11.5 - 14.5 %) 14.3 Plt Count (130 - 400 /CUMM) 180 MPV (7.4 - 10.4 FL) 12.0 H Gran % (42.2 - 75.2 %) 78.5 H Lymphocytes % (20.5 - 51.1 %) 14.0 L Monocytes % (1.7 - 9.3 %) 6.5 Eosinophils % (0 - 5 %) 0.9 Basophils % (0.0 - 2.0 %) 0.1 Absolute Granulocytes (1.4 - 6.5 /CUMM) 11.7 H Absolute Lymphocytes (1.2 - 3.4 /CUMM) 2.1 Absolute Monocytes (0.10 - 0.60 /CUMM) 1.0 H Absolute Eosinophils (0.0 - 0.7 /CUMM) 0.1 Absolute Basophils (0.0 - 0.2 /CUMM) 0 Urines Urine Color (YEL,AMB,STR) YEL Urine Clarity (CLEAR) CLEAR Urine pH (5.0 - 8.0) 6.0 Ur Specific [place] (1.001 - 1.035) >= 1.030 Urine Protein (NEG,<30 MG/DL) NEG Urine Ketones (NEG) 15 H Urine Nitrite (NEG) NEG Urine Bilirubin (NEG) NEG Urine Urobilinogen (0.1 - 1.0 EU/dl) 0.2 Ur Leukocyte Esterase (NEG) NEG Ur Microscopic SEDIMENT EXAMINED Urine RBC (0 - 5 /HPF) 1-3 Urine WBC (0 - 2 /HPF) RARE Ur Epithelial Cells (NONE,FEW) RARE Urine Bacteria (NEG/NONE) RARE H Urine Mucus (FEW,NONE) FEW Urine Hemoglobin (NEG) SMALL H Urine Glucose (N MG/DL) NEG Imaging/Other Studies: SERVICE DATE: 06/19/17 EXAM TYPE: CAT - CT ABD & PELVIS W/O IV CONTRAS EXAMINATION: CT ABDOMEN AND PELVIS WITHOUT CONTRAST CLINICAL INFORMATION: Bilateral flank pain radiating to the abdomen. Elevated lipase. COMPARISON: 04/01/2013 TECHNIQUE: Multidetector volumetric imaging was performed from the superior aspect of the liver through the pubic symphysis. Sagittal and coronal reformatted images were obtained on the technologist's workstation. DLP: 440 mGy-cm FINDINGS: LUNG BASES: The visualized lung bases are unremarkable. LIVER, GALLBLADDER, AND BILIARY TREE: The liver is normal in size, shape, and attenuation. 0.9 cm hypoattenuating lesion at the periphery of segment 4 likely represents a cyst, unchanged from previous. No additional hepatic lesion or biliary ductal dilatation is present. The gallbladder is not seen and likely absent. PANCREAS: The pancreatic parenchyma is unremarkable. There is minimal inflammatory stranding deep and inferior to the pancreatic body, in the region of the superior mesenteric artery. SPLEEN: Unremarkable. ADRENAL GLANDS: Unremarkable. KIDNEYS AND URETERS: The kidneys are normal in size, shape, and attenuation. No hydronephrosis, hydroureter, or calculi seen. No perinephric stranding. BLADDER: Unremarkable. GASTROINTESTINAL TRACT: Small to moderate hiatal hernia. The stomach is otherwise unremarkable. The small bowel is normal in caliber. No obstruction. Normal appendix. No colonic wall thickening or inflammatory change. Scattered diverticulosis without diverticulitis. No free air or free fluid. ABDOMINAL WALL: No significant hernia is appreciated. LYMPH NODES: Normal. VASCULAR: Mild atherosclerotic calcifications. PELVIC VISCERA: The uterus and adnexa are unremarkable. OSSEOUS STRUCTURES: No acute or suspicious osseous abnormality. Degenerative changes of the hips and spine. Prominent scoliosis. Grade 1 anterolisthesis of L5 on S1. IMPRESSION: Mild inflammatory changes deep and inferior to the pancreas, surrounding the mesenteric vasculature. This is nonspecific. The pancreatic parenchyma is unremarkable. This could still be associated with pancreatitis, particularly at the uncinate. No hydronephrosis or nephrolithiasis. October 2016 EGD: Findings: The esophagus had normal caliber and contour. The mucosa was intact throughout except for a short linear break above the GE junction. There were no varices. The GE junction was at 30 cm, at which site was a patent ring. There was a hiatal hernia. There were no Gui's erosions. The stomach had normal distention and active antral peristalsis. There was no blood within the gastric cavity. The cardia was normal. Mucosa and folds were normal throughout. Biopsies were obtained from the body, incisura and antrum. The pyloric channel was normal. Within the duodenal bulb on the anterior wall was a narrow curvilinear 1.2 cm ulcer with a clean base, and adjacent edema. Careful search failed to reveal other ulceration. Mucosa and folds of the second and third portions of the duodenum were normal. Impression: * Duodenal ulcer * Hiatal hernia/Schatzki ring * Grade A esophagitis bx positive for h. pylori. Assessment/Plan Assessment/Recommendations: Assessment: Ms. Mejía is a 72 year female with a history of PUD on an EGD in October of last year presumably from h. pylori which has yet to be eradicated as she couldn't tolerate the abx prescribed to her who presents with recurrent pain similary to when she was admitted in October with the ulcer and who has a ct scan that shows peripancreatic inflammation. As she notes an increase in dyspeptic symptoms with a decrease in her PPI a few months ago requiring extra tums it is possible this could of led to an exacerbation of PUD or even GERD and while GERD wouldn't explain the ct scan findings a penetrating duodneal ulcer potentially could. Mild acute pancreatitis is also possible, but her symptoms are not entirely consistent with pancreatitis (pain starts in the back) and her lipase is only moderately elevated, but not to the level one would expect from pancreatits. She is also without typical risk factors for pancreatitis as her GB has been removed, her LFTs are normal, which makes a retained stone less likely, and she doesn't drink. Another possibility could be an occult neoplasm in her pancreas which could also account for her discomfort and ct scan findings and this may need to be ruled out with further imaging, but I am not certain if that is necessary if she has persistent PUD on a repeat EGD. Of note, if she does have a persistent ulcer in spite of being on a ppi it may be warranted to work her up for a gastrinoma as well. Recommendations: 1. Continue IV protonix 40 mg bid 2. Diet as tolerated, but would keep NPO after midnight for a repeat diagnostic EGD to be done tomorrow to assess for persistnet PUD. 3. IV zofran as needed for nausea and vomiting 4. Check am LFTs 5. repeat ct scan with pancreatic mass protocol and/or mra/cta which can be pursued as an outpatient if the EGD is negative. 6. Avoid nsaids 7. Treatment of h. pylori as an outpatient 8. Consideration will be given to work up for a gastrinoma if PUD present on EGD, but this could also just be secondary to a persistent h. pylori infection I will continue to follow this patient and make further recommendations based on her clinical course and the results of tomorrows EGD. Problem List: 1. GI bleed 2. Anemia 3. Elevated lipase Copies To: Suzi CASTANON,Suzi Consult Acknowledgment - Thank you for your consult request.
[2017-06-19 17:19] VITALS: BP 136/70
[2017-06-19 17:30] VITALS: BP 150/82
[2017-06-19 22:23] VITALS: BP 150/76
[2017-06-20 06:00] VITALS: BP 140/72
--- NOTE | 2017-06-20 07:45 | PN- Housestaff ---
Subjective Follow-up For: Questionable pancreatitis (Mild inflammatory changes deep and inferior to the pancreas-and a CAT scan) History of atrial fibrillation currently in normal sinus rhythm(history of GI bleed in the past not on any anticoagulation) History of hypertension and hyperlipidemia History of anxiety Subjective: She was seen in this morning seems better than yesterday nausea and abdominal pain improved she is currently nothing by mouth for endoscopy today. Review of Systems Constitutional: Denies: diaphoresis, fever, weakness. EENTM: Denies: blurred vision, double vision, visual changes. Cardiovascular: Denies: chest pain, edema. Respiratory: Denies: cough, hemoptysis, orthopnea. Gastrointestinal: Denies: bloating, constipation. Genitourinary: Denies: discharge, frequency, hematuria, hesitation. Musculoskeletal: Denies: back pain, joint pain. Objective Last 24 Hrs of Vital Signs/I&O Vital Signs Date Time Temp Pulse Resp B/P B/P Pulse O2 O2 Flow FiO2 Mean Ox Delivery Rate 06/20 1422 98.5 61 18 140/60 94 Room Air 06/20 0936 80 140/72 06/20 0600 98.7 80 20 140/72 96 06/19 2223 98.5 63 18 150/76 92 Room Air 06/19 1730 98.2 86 16 150/82 97 Room Air 06/19 1719 98.2 65 20 136/70 96 Room Air 06/19 1639 98.1 71 18 170/80 95 Room Air 06/19 1429 162/72 Intake & Output 06/20 1600 / 0800 06/20 0000 Intake Total 600 520 Output Total 500 Balance 600 20 Intake, IV 600 400 Intake, Oral 120 Output, Urine 500 Patient 152 lb Weight Physical Exam General Appearance: Alert, Oriented X3 Skin: No Rashes, No Breakdown Skin Temp/Moisture Exam: Warm/Dry Sepsis Skin Exam (color): Normal for Ethnicity, Cyanotic HEENT: Atraumatic, PERRLA Cardiovascular: Regular Rate, Normal S1, Normal S2 Lungs: Clear to Auscultation, Normal Air Movement Abdomen: Normal Bowel Sounds, Soft Neurological: Normal Gait, Normal Speech Extremities: No Clubbing, No Cyanosis Current Medications: Current Medications Sig/Trevor Start time Last Medication Dose Route Stop Time Status Admin Acetaminophen 650 MG Q6P PRN 06/19 544 AC PO Acetaminophen 1,000 MG Q6P PRN 06/19 0545 AC 06/20 IV 0944 Aspirin 81 MG DAILY 06/19 1000 AC 06/20 PO 0935 Dextrose/Sodium 1,000 ML Q13H 06/19 0545 AC 06/20 Chloride IV 0945 Fluticasone 1 SPRAY DAILY 06/19 1000 AC 06/20 Propionate JOSE MANUEL 0936 Heparin Sodium 5,000 UNIT Q8 06/19 0600 AC 06/20 (Porcine) SC 0545 Lidocaine 2 CHRISTOPHER .STK-MED ONE 06/20 1332 DC TOP 06/20 1333 Lidocaine 50 ML .STK-MED ONE 06/20 1332 DC TOP 06/20 1333 Lorazepam 0.25 MG AT BEDTIME NEED.. 06/19 0600 AC 06/19 PO 06/26 0559 2201 Metoprolol Succinate 25 MG DAILY 06/19 1000 AC 06/20 PO 0936 Ondansetron HCl 4 MG Q8P PRN 06/19 0545 AC 06/19 IV 1047 Pantoprazole Sodium 40 MG BID 06/19 2200 AC 06/20 IV 0935 Pantoprazole Sodium 40 MG DAILY 06/19 1000 DC 06/19 IV 0938 Last 24 Hrs of Lab/Mauricio Results Last 24 Hrs of Labs/Mics: Laboratory Tests 06/20/17 0810: Anion Gap 13, Estimated GFR > 60, BUN/Creatinine Ratio 13.3, Total Bilirubin 0.7 , Direct Bilirubin 0.2, AST 32, ALT 29, Alkaline Phosphatase 94, Total Protein 6.3, Albumin 3.7, CBC w Diff NO MAN DIFF REQ, RBC 4.53, MCV 82.7, MCH 27.0, MCHC 32.7 L, RDW 14.5, MPV 11.9 H, Gran % 61.2, Lymphocytes % 29.3, Monocytes % 7.3 , Eosinophils % 1.8, Basophils % 0.4, Absolute Granulocytes 6.0, Absolute Lymphocytes 2.9, Absolute Monocytes 0.7 H, Absolute Eosinophils 0.2, Absolute Basophils 0 Assessment/Plan Assessment: Mr. Mejía a 72 year old female was past medical history of atrial fibrillation on aspirin, not on anticoagulation for history of upper GI bleeding, now regular , hypertension, anxiety, arthritis, chronic cystitis, upper GI bleeds, diverticulosis, duodenal ulcer, H. pylori infection not treated because of antibiotic allergy presented with chief complaint of back pain radiated to epigastric area. On admission Vital signs 97.2, rate 72, blood pressure 170/94, respiratory rate 18 saturating 98% on room air Labs significant for WBC 14.9, H&H 12.5/38.1, platelet 1, BUN/creatinine 17/0.5, lipase 718, glucose 105, UA positive for ketones. CT abdomen and pelvis without IV contrast IMPRESSION: Mild inflammatory changes deep and inferior to the pancreas, surrounding the mesenteric vasculature. This is nonspecific. The pancreatic parenchyma is unremarkable. This could still be associated with pancreatitis, particularly at the uncinate. No hydronephrosis or nephrolithiasis. Assessment and plan Problem list Questionable pancreatitis (Mild inflammatory changes deep and inferior to the pancreas-and a CAT scan) History of atrial fibrillation currently in normal sinus rhythm(history of GI bleed in the past not on any anticoagulation) History of hypertension and hyperlipidemia History of anxiety PLAN: Questionable pancreatitis (Mild inflammatory changes deep and inferior to the pancreas-and a CAT scan) * Continue to monitor patient on the [facility] floor. * Continue with D5 half-normal saline at the rate of 70 per * Patient is currently nothing by mouth, for endoscopy today , we'll follow-up the results.Continue with IV Protonix twice a day pending above * As per GI recommendations if results of the endoscopy are inconclusive will consider MRI abdomen versus CTA abdomen for further investigation around mesenteric vasculature * Zofran for nausea when necessary. History of atrial fibrillation currently in normal sinus rhythm(history of GI bleed in the past not on any anticoagulation): * Continue home medications. History of hypertension and hyperlipidemia: * Continue home medications History of anxiety * Continue home medications. Code full DVT prophylaxis heparin subcutaneous and Alps Problem List: 1. Afib 2. GI bleed Pain Ratin Pain Location: No pain at this time Pain Goal: Pain 4 or less Pain Plan: When necessary Tylenol Tomorrow's Labs & Rationales: no need of labs
[2017-06-20 09:09] LABS: ABSOLUTE BASOPHIL COUNT 0 /CUMM (0.0-0.2); ABSOLUTE EOSINOPHIL COUNT 0.2 /CUMM (0.0-0.7); ABSOLUTE LYMPH COUNT 2.9 /CUMM (1.2-3.4); ABSOLUTE MONOCYTE COUNT 0.7 /CUMM (0.10-0.60); BASOPHIL % 0.4 % (0.0-2.0); EOSINOPHIL % 1.8 % (0-5); GRANULOCYTE % 61.2 % (42.2-75.2); HEMATOCRIT 37.4 % (37-47); MEAN CORPUSCULAR HGB CONC 32.7 G/DL (33.0-37.0); MEAN CORPUSCULAR VOLUME 82.7 FL (81.0-99.0); MEAN PLATELET VOLUME 11.9 FL (7.4-10.4); PLATELET COUNT 174 /CUMM (130-400); RBC DISTRIBUTION WIDTH 14.5 % (11.5-14.5); RED BLOOD CELL CT 4.53 /CUMM (4.20-5.40); WHITE BLOOD CELL COUNT 9.8 /CUMM (4.8-10.8)
--- NOTE | 2017-06-20 10:09 | Discharge Summary ---
Visit Information Visit Dates Admission Date: 06/20/17 Discharge Date: 06/21/17 Hospital Course Course Attending Physician: Cherelle Vidal MD Primary Care Physician: Suzi CASTANON,Suzi [facility] Course: Patient is a 72 year old female was past medical history of atrial fibrillation on aspirin, not on anticoagulation due to upper GI bleeding, now regular, history of duodenal ulcer with untreated H. pylori(due to severe antibiotic allergies), history of hypertension, anxiety, arthritis, chronic cystitis presented for the evaluation of severe epigastric pain radiating to her back. On admission Vital signs 97.2, rate 72, blood pressure 170/94, respiratory rate 18 saturating 98% on room air Labs significant for WBC 14.9, H&H 12.5/38.1, platelet 1, BUN/creatinine 17/0.5, lipase 718, glucose 105, UA positive for ketones. CT abdomen and pelvis without IV contrast IMPRESSION: Mild inflammatory changes deep and inferior to the pancreas, surrounding the mesenteric vasculature. This is nonspecific. The pancreatic parenchyma is unremarkable. This could still be associated with pancreatitis, particularly at the uncinate. No hydronephrosis or nephrolithiasis. Following problems were addressed while patient was on [facility]:] Severe epigastric pain( history of duodenal ulcer with untreated H. pylori infection) Patient was admitted to general medical floor, was kept nothing by mouth . IV protonix 40 mg bid was started. Pt was evaluated by GI, as per recommendations patient had a repeat EGD was done that showed hiatal hernia and Schatzki's ring, with no evidence of peptic ulcer disease, or duodenal inflammation. Patient was discharged home on PPI 40 mg twice a day for 14 days. She would follow-up with Dr. Gurdeep Mendenhall from GI on July 01. Questionable Mild pancreatitis at the uncinate process.(Mild inflammatory changes deep and inferior to the pancreas-and a CAT scan): Mild pancreatitis was suspected on admission, review of CAT scan results. She was kept nothing by mouth received IV fluids. GI was on board, clinical condition improved , so MRI abdomen versus CTA abdomen for further investigation around mesenteric vasculature(? Thromboembolism) was not pursued. History of atrial fibrillation currently in normal sinus rhythm(history of GI bleed in the past not on any anticoagulation): Home home medications were continued on discharge History of hypertension and hyperlipidemia: home medications were continued History of anxiety and depression home medications were continued Code full DVT prophylaxis heparin subcutaneous and Alps Allergies: Coded Allergies: amoxicillin (RASH 10/29/16) clarithromycin (From BIAXIN) (RASH 10/29/16) fentanyl (UNKNOWN 10/29/16) midazolam (UNKNOWN 10/29/16) ibuprofen (NAUSEA 10/29/16) Disposition Summary Disposition Principal Diagnosis: Severe epigastric pain( history of duodenal ulcer with untreated H. pylori infection) Additional Diagnosis: Questionable Mild pancreatitis at the uncinate process.(Mild inflammatory changes deep and inferior to the pancreas-and a CAT scan): Discharge Disposition: home or self care Discharge Instructions General Discharge Information Code Status: Full Code Patient's Diet: Regular diet Patient's Activity: As tolerated Follow-Up Instructions/Appts: 1. Please follow-up with the primary care physician within 1-2 weeks after discharge 2. Please follow-up with the GI as an outpatient within 1-2 weeks of discharge. 3. Return. ER if the symptoms get worse after discharge Medications at Discharge Discharge Medications: Continue taking these medications: Metoprolol Succinate (Metoprolol Succinate) 25 MG TAB 1 Tablet ORAL DAILY Qty = 90 Comments: Last Taken:11-02-16 Time:0900 Fluticasone Propionate (Fluticasone Propionate) 50 MCG/ACTUATION SPRAY.SUSP 1 [place] Both sides of nose DAILY Qty = 48 Comments: Last Taken:06/21/17 Time:9AM Lorazepam (Lorazepam) 0.5 MG TABLET 0.5 Tablet ORAL TAKE AT BEDTIME Qty = 30 Comments: NOT GIVEN [CITRACEL] 1 Tablet ORAL DAILY Calcium Carbonate (TUMS) 200 MG CALCIUM (500 MG) TAB.CHEW 2 Tablet ORAL EVERY 4 HOURS NEEDED Omeprazole (Omeprazole) 40 MG CAPSULE.DR 1 Capsule ORAL TWICE DAILY Qty = 30 Instructions: Take this medication for twice per day for 14 days. Then once per day after. Comments: Last Taken:06/21/17 Time:0900 Aspirin (Aspirin*) 81 MG TAB.CHEW 81 Milligram ORAL DAILY Qty = 30 Instructions: ..Do not take if you notice your stool is black, or you experience bleeding. Comments: Last Taken:06/21/17 Time:0900 Loratadine (Claritin) 10 MG CAPSULE 1 Tablet ORAL DAILY Ondansetron (Zofran Odt) 4 MG TAB.RAPDIS 1 Tablet ORAL EVERY SIX HOURS as needed for NAUSEA Qty = 20 Copies To: Suzi CASTANON,Suzi
--- NOTE | 2017-06-20 11:03 | PN- Att Addend ---
Attending Addendum Attending Brief Note Patient seen and examined, overall feeling better. Claims that her abdominal pain is improved. She's not feeling nauseous anymore. Patient is scheduled for endoscopy today. Vital Signs Date Time Temp Pulse Resp B/P B/P Pulse O2 O2 Flow FiO2 Mean Ox Delivery Rate 06/20 0936 80 140/72 06/20 0600 98.7 80 20 140/72 96 / 2223 98.5 63 18 150/76 92 Room Air 06/19 1730 98.2 86 16 150/82 97 Room Air 06/19 1719 98.2 65 20 136/70 96 Room Air 06/19 1639 98.1 71 18 170/80 95 Room Air 06/19 1429 162/72 02 1420 97.7 80 18 175/80 95 Room Air on exam; aox3, nad. cv; s1,s2, rrr resp; clear abd; soft, nt, bs+ ext; no edema Laboratory Tests 06/20 0810 Chemistry Sodium (137 - 145 mmol/L) 143 Potassium (3.5 - 5.1 mmol/L) 3.5 Chloride (98 - 107 mmol/L) 104 Carbon Dioxide (22 - 30 mmol/L) 26 Anion Gap (5 - 16) 13 BUN (7 - 17 mg/dL) 8 Creatinine (0.5 - 1.0 mg/dL) 0.6 Estimated GFR (>60 ml/min) > 60 BUN/Creatinine Ratio (7 - 25 %) 13.3 Total Bilirubin (0.2 - 1.3 mg/dL) 0.7 Direct Bilirubin (< 0.4 mg/dL) 0.2 AST (14 - 36 U/L) 32 ALT (9 - 52 U/L) 29 Alkaline Phosphatase (<127 U/L) 94 Total Protein (6.3 - 8.2 g/dL) 6.3 Albumin (3.5 - 5.0 g/dL) 3.7 Hematology CBC w Diff NO MAN DIFF REQ WBC (4.8 - 10.8 /CUMM) 9.8 RBC (4.20 - 5.40 /CUMM) 4.53 Hgb (12.0 - 16.0 G/DL) 12.2 Hct (37 - 47 %) 37.4 MCV (81.0 - 99.0 FL) 82.7 MCH (27.0 - 31.0 PG) 27.0 MCHC (33.0 - 37.0 G/DL) 32.7 L RDW (11.5 - 14.5 %) 14.5 Plt Count (130 - 400 /CUMM) 174 MPV (7.4 - 10.4 FL) 11.9 H Gran % (42.2 - 75.2 %) 61.2 Lymphocytes % (20.5 - 51.1 %) 29.3 Monocytes % (1.7 - 9.3 %) 7.3 Eosinophils % (0 - 5 %) 1.8 Basophils % (0.0 - 2.0 %) 0.4 Absolute Granulocytes (1.4 - 6.5 /CUMM) 6.0 Absolute Lymphocytes (1.2 - 3.4 /CUMM) 2.9 Absolute Monocytes (0.10 - 0.60 /CUMM) 0.7 H Absolute Eosinophils (0.0 - 0.7 /CUMM) 0.2 Absolute Basophils (0.0 - 0.2 /CUMM) 0 A/P; 72 y/o F with pmh sig for atrial fibrillation on aspirin, not on anticoagulation for history of upper GI bleeding, hypertension, anxiety, arthritis, chronic cystitis, upper GI bleeds, diverticulosis, duodenal ulcer, H. pylori infection not treated because of antibiotic allergy/side effects, admitted with abdominal pain radiating to back, nausea and vomiting. Patient has ? pancreatitis at uncinate process. She also has history of H pylori which has not been treated secondary to patient having allergies to a lot of antibiotics and getting side effects from Pylera. Patient scheduled for endoscopy today. We will follow-up on the results. Appreciate GI input. Further recommendations, obtaining CT or MRI of the abdomen will be depending on endoscopy results. Patient has been kept on IV PPI. Overall her pain and nausea vomiting has improved. We'll follow-up on endoscopy results and then discuss the plan of care accordingly. Patient was encouraged to speak with her enrobing machine corder about the treatment for her H. pylori. DVT px; Hep sq.
--- NOTE | 2017-06-20 13:29 | Proc Note Endoscopy ---
Endoscopy Procedure Procedure Date: 06/20/17 Procedure Type: EGD Shoe Parts Molder: Rupesh Mendenhall M.D. ASA Classification: III Indications: Epigastric/back pain History of duodenal ulcer Instrument: diagnostic gastroscope Meds Received: JOON Patient's Tolerance: good Complications: none Extent Reached: distal duodenum Procedure: The patient signed informed consent, and was medicated. Pulse oximetry, blood pressure and cardiac monitoring were performed continuously throughout the procedure. The Olympus high-definition gastroscope was inserted into the mouth and advanced to the duodenum. Retroflexion was performed within the stomach to examine the cardia. Careful examination was performed. Findings: The esophagus had normal caliber and contour. The GE junction at 30 cm was normal except for a ring. There was a hiatal hernia extending to 35 cm. There were no Gui's erosions. The stomach had normal distention and active peristalsis. The cardia was normal. The mucosa and folds were normal throughout except for prepyloric edema. The pyloric channel was normal. The duodenal bulb was normal without erosion, ulceration or deformity. Mucosa and folds of the second and third portions of the duodenum were normal. Impression: * Hiatal hernia/Schatzki ring * No evidence of peptic ulcer disease, or duodenal inflammation Recommendations: * PPI by mouth twice a day * Regular diet, and if tolerates may discharge with careful outpatient GI follow -up CC: Suzi CASTANON,Suzi
[2017-06-20 14:22] VITALS: BP 140/60
--- NOTE | 2017-06-20 14:45 | Patient Discharge Instructions ---
Discharge Instructions General Discharge Information You were seen/treated for: Severe epigastric pain/pancreatitis Special Instructions: 1. Please follow-up with the primary care physician within 1-2 weeks after discharge 2. Please follow-up with the GI as an outpatient within 1-2 weeks of discharge. 3. Return. ER if the symptoms get worse after discharge Diet Recommended Diet: Regular Activity Activity Self Limited: Yes Acute Coronary Syndrome Inclusion Criteria At DC or during hospital stay patient has or had the following: ACS DIAGNOSIS No Discharge Core Measures Meds if any: Prescribed or Continued at Discharge Meds if any: NOT Prescribed or Continued at Discharge Congestive Heart Failure Inclusion Criteria At DC or during hospital stay patient has or had the following: CHF DIAGNOSIS No Discharge Core Measures Meds if any: Prescribed or Continued at Discharge Meds if any: NOT Prescribed or Continued at Discharge Cerebrovascular accident Inclusion Criteria At DC or during hospital stay patient has or had the following: CVA/TIA Diagnosis No Discharge Core Measures Meds if any: Prescribed or Continued at Discharge Meds if any: NOT Prescribed or Continued at Discharge Venous thromboembolism Inclusion Criteria VTE Diagnosis No VTE Type NONE VTE Confirmed by (Test) NONE Discharge Core Measures - Per Current guidelines, there needs to be overlap - treatment for the first 5 days of Warfarin therapy. - If discharged on Warfarin prior to 5 days of - overlap therapy, the patient will need to be - assessed for post discharge needs including - *Post discharge parental anticoagulation - *Warfarin and/or parental anticoagulation education - *Follow up date to check INR post discharge At least 5 days overlap therapy as Inpatient No Meds if any: Prescribed or Continued at Discharge Note: Overlap Therapy is Warfarin and Anticoagulant Meds if any: NOT Prescribed or Continued at Discharge
[2017-06-20 22:21] VITALS: BP 118/70
[2017-06-21 07:50] VITALS: BP 124/70
[2017-06-21 08:31] VITALS: BP 124/70
--- NOTE | 2017-06-21 10:19 | PN- Att Addend ---
Attending Addendum Attending Brief Note Pt seen and examined. She feels well and is walking all over the unit. She tolerated a regular breakfast fine. She hasn't had a bowel movement since 06/17. She says that the opiates and the fact that she hasn't eaten that are probably contributing to it. She's been taking MiraLAX and feels a sensation of needing to go. Physical exam MAXIMUM TEMPERATURE 98.2, blood pressure 124/70, pulse is 62, breathing at 16-18. Awake alert oriented, lungs are clear to auscultation, heart is S1-S2 irregular, abdomen is soft nontender. She is a 72-year-old with a history of A. fib not on anticoagulation, chronic back pain, history of peptic ulcer disease with untreated H pylori- she has been able unable to tolerate the treatment for the same. She is here with a mild pancreatitis questionable inflammation around the uncinate area and had an endoscopy yesterday which revealed hiatal hernia and Schatzki's ring but no ulcer. At this point I think she is stable to go on the omeprazole 40 twice a day for 14 days. She already has an appointment to see Dr. Guredep Mendenhall from GI on July 01 and she will do her best to make it even earlier. She'll take the PPI as recommended by Dr. Vidal as an the CMR. I've ordered a Dulcolax tablet for her at her request and will follow and if she has a bowel movement she can leave.
== END 2017-06-21 13:40 | DRG 391 ==
LOC: ERH 20:55 → ERHI 06-19 03:30 → ENRESERV 06-19 16:33 → ENTRNSPT 06-19 16:53 → EDTRNSPTSTS 06-19 16:56 → 2NA 06-19 17:09 → CMPTRNSPT 06-19 17:15 → 2NA 06-19 19:42 → ENPENDDIS 06-21 10:49 → 2NA 06-21 13:40
PROVIDERS: Emergency Medicine; Student in an Organized Health Care Education/Training Program
PROC: 0DJ08ZZ Inspection of Upper Intestinal Tract, Via Natural or Artificial Opening Endoscopic (ICD-10-PCS; principal; 2017-06-20)
DX: R10.13 Epigastric pain (principal); K85.90 Acute pancreatitis without necrosis or infection, unspecified; A04.8 Other specified bacterial intestinal infections; I48.91 Unspecified atrial fibrillation; K22.2 Esophageal obstruction; D64.9 Anemia, unspecified; K44.9 Diaphragmatic hernia without obstruction or gangrene; Z79.82 Long term (current) use of aspirin; F41.9 Anxiety disorder, unspecified; M19.90 Unspecified osteoarthritis, unspecified site; K57.90 Diverticulosis of intestine, part unspecified, without perforation or abscess without bleeding; Z90.49 Acquired absence of other specified parts of digestive tract; Z88.6 Allergy status to analgesic agent; Z88.1 Allergy status to other antibiotic agents; Z88.5 Allergy status to narcotic agent; Z88.8 Allergy status to other drugs, medicaments and biological substances; Z82.49 Family history of ischemic heart disease and other diseases of the circulatory system; I10 Essential (primary) hypertension; N30.20 Other chronic cystitis without hematuria; Z87.442 Personal history of urinary calculi; K20.9 Esophagitis, unspecified; E78.5 Hyperlipidemia, unspecified
CPT/HCPCS: 2NAP; 36415; 74176; 81001; 82436; 93005; 93010; J0131; J1644; J2405; J3101; J3250; J3490; J7042